=== PATIENT | female | born 2000 | race Caucasian/White ===

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

== ENCOUNTER 2021-06-01 14:31 | Emergency (ER) | payer OTHER, SELFPAY ==
[2021-06-01 14:33] VITALS: BP 157/73; PULSE 95; RESP 20; TEMP 37; O2SAT 98; BMI 33.2
[2021-06-01 15:16] LABS: Basophils % 0.2 % (0.1-2.0); Eosinophils % 0.3 % (0.1-12.0); Hematocrit 44.4 % (37.0-47.0); Hemoglobin 14.4 g/dL (12.2-16.2); Lymphocytes # 1.4 K/mm3 (0.7-4.5); Lymphocytes % 10.6 % (10-50); Mean Corpuscular HGB Conc 32.4 g/dL (31.8-35.4); Mean Corpuscular Hemoglobin 27.1 pg (27.0-31.2); Mean Corpuscular Volume 83.7 fl (81-99); Mean Platelet Volume 8.2 fl (7.4-10.4); Monocytes # 0.4 K/mm3 (0.1-1.0); Monocytes % 3.3 % (1.7-9.3); Neutrophils # 11.5 K/mm3 (1.8-7.8); Neutrophils % 85.6 % (37.0-80.0); Platelet Count 391 K/mm3 (142-424); Red Cell Distribution Width 15.2 % (11.5-17.5); White Blood Count 13.5 K/mm3 (4.8-10.8)
[2021-06-01 15:19] LABS: MANUAL DIFFERENTIAL MANUAL DIFFERENTIAL (MANUAL DIFF)
[2021-06-01 15:20] LABS: Alanine Aminotransferase 25 U/L (12-78); Albumin Level 4.7 g/dl (3.5-5.0); Albumin/Globulin Ratio 1.6 (1.1-1.8); Alkaline Phosphatase 68 U/L (38-126); Anion Gap 15.8 mEq/L (5-15); Aspartate Amino Transferase 23 U/L (14-36); Bilirubin,Total 0.6 mg/dl (0.2-1.3); Blood Urea Nitrogen 9 mg/dl (7-17); Calcium 9.7 mg/dl (8.4-10.2); Carbon Dioxide 23 mmol/L (22.0-30.0); Chloride 103 mmol/L (98-107); Creatinine Clearance Estimated 188 mL/min (50-200); Estimated Glomerular Filt Rate 106 ml/min (>60); GFR (African American) 128 ML/MIN (>60); Glucose 86 mg/dl (74-100); Potassium 3.8 mmoL/L (3.5-5.1); Sodium 138 mmol/L (136-145); Total Protein,Serum 7.7 g/dl (6.3-8.2)
[2021-06-01 16:09] LABS: Eosinophils % 1 % (0-3); Hypochromasia 1+; Lymphocytes % 14 % (10-50); Monocytes % 10 % (2-9); Neutrophils % 75 % (42-76); Platelet Estimate Normal; Total Cells Counted 100
--- NOTE | 2021-06-01 16:36 | HMH.EDGENADL ---
ED Disposition Clinical Impression: Intractable nausea and vomiting Disposition: Home, Self-Care Condition on Discharge: Good Instructions: DI for Diarrhea and Traveler's Diarrhea -- Adult, DI for Diarrhea and Traveler's Diarrhea -- Child, DI for Nausea -- Adult, DI for Nausea -- Child Prescriptions: Ondansetron [Zofran 4mg ODT] 4 mg PO BIDP PRN #10 tab PRN Reason: Nausea Transmission Status: Received by [facility] Referrals: Derik Ruano MD [Primary Care Provider] - - Critical Care Critical Care Time: No Attestation: On 06/01/21, the high probability of a clinically significant, sudden or life threatening deterioration of the following system(s) required my full and direct attention, intervention and personal management. The time I documented below is in addition to time spent performing reported procedures but includes the following listed in this critical care notation. Medical Decision Making - Medical Records Medical records reviewed: Yes: I reviewed the patient's medical records. - Jef Inquiry Pt receiving controlled substance: No Vital Signs: 06/01/21 14:33 06/01/21 17:04 06/01/21 17:09 Temperature 98.6 F 98.6 F Temperature Source Oral Pulse Rate 87 87 Pulse Rate [Left Radial] 95 H Respiratory Rate 20 20 Blood Pressure 116/69 116/69 Blood Pressure [Right Arm] 157/73 H Blood Pressure Mean 85 Blood Pressure Mean [Right Arm] 101 Blood Pressure Source [Right Arm] Automatic Cuff Blood Pressure Position [Right Arm] Sitting 02 Sat by Pulse Oximetry 98 98 Oxygen Delivery Method Room Air Room Air - Lab Data Lab Results 06/01/21 15:03: WBC 13.5 H, RBC 5.30, Hgb 14.4, Hct 44.4, MCV 83.7, MCH 27.1, MCHC 32.4, RDW 15.2, Plt Count 391, MPV 8.2, Neut % (Auto) 85.6 H, Lymph % (Auto) 10.6, [place] % (Auto) 3.3, Eos % (Auto) 0.3, Baso % (Auto) 0.2, Neut # (Auto) 11.5 H, Lymph # (Auto) 1.4, Yates # (Auto) 0.4, Eos # (Auto) 0.0, Baso # (Auto) 0.0, Total Counted 100, Neutrophils % (Manual) 75, Lymphocytes % (Manual) 14, Monocytes % (Manual) 10 H, Eosinophils % (Manual) 1, Platelet Estimate Normal, Hypochromasia 1+ 06/01/21 15:03: Sodium 138, Potassium 3.8, Chloride 103, Carbon Dioxide 23, Anion Gap 15.8 H, BUN 9, Creatinine 0.70, Estimated Creat Clear 188, Estimated GFR 106, Est GFR ( Amer) 128, Glucose 86, Calcium 9.7, Total Bilirubin 0.6, AST 23, ALT 25, Alkaline Phosphatase 68, Total Protein 7.7, Albumin 4.7, Globulin 3.0, Albumin/Globulin Ratio 1.6 Result diagrams: 06/01/21 15:03 06/01/21 15:03 Orders (Tests/Meds): ED MEDICATIONS Discontinued Medications Generic Name Dose Route Start Last Admin Trade Name Freq PRN Reason Stop Dose Admin Sodium Chloride 1,000 mls @ 999 mls/hr 06/01/21 15:00 06/01/21 15:09 Sod Chlor 0.9% 1000ml Bag IV 06/01/21 16:00 999 mls/hr .Q1H1M FREDDY Administration Promethazine HCl 25 mg 06/01/21 15:20 Promethazine Hcl 25mg/Ml 1ml Vial IV 07/01/21 15:19 Q6HP PRN Nausea And Vomiting Medical Decision Narrative: Patient is a 21-year-old female presents emergency department chief complaint of nausea. Patient has suffered from intractable nausea and vomiting throughout both of her pregnancies. Given patient history, suspect patient is suffering from hyperemesis, intractable nausea vomiting, dehydration. We will give her a liter of fluid, Phenergan and have her p.o. Patient is able to p.o. without vomiting here, and the Zofran to the pharmacy where she could pick it up, she will follow up with OB and return to emergency department if she has new or acute problems. General Adult HPI - General Chief complaint: Nausea/Vomiting/Diarrhea Stated complaint: nauseated and vomiting, 7 wks Time Seen by Provider: 06/01/21 14:45 Mode of Arrival: Ambulatory Limitations: No Limitations Description of Symptoms (Recalled from ER Triage Doc. by RN): c/o n/v since Saturday, states she is unable to keep liquids or
[2021-06-01 17:04] VITALS: BP 116/69; PULSE 87; O2SAT 98
[2021-06-01 17:09] VITALS: BP 116/69; PULSE 87; RESP 20; TEMP 37; O2SAT 98
== END 2021-06-01 17:10 | disposition home or self-care (01) ==
PROVIDERS: Emergency Provider Emergency Medicine; PCP Internal Medicine Adolescent Medicine
DX: O21.0 Mild hyperemesis gravidarum (principal); Z3A.01 Less than 8 weeks gestation of pregnancy
CPT/HCPCS: 80053; 85007; 85025; 96365; 96375; 99283

== ENCOUNTER 2021-08-12 12:02 | Emergency (ER) | payer BC, SELFPAY ==
[2021-08-12 15:45] VITALS: BP 0/0; PULSE 0; RESP 0; TEMP -17.7; TEMP 0
== END 2021-08-12 15:45 | disposition left against medical advice (07) ==
LOC: UTC 12:10
PROVIDERS: Emergency Provider Nurse Practitioner Family
DX: Z53.21 Procedure and treatment not carried out due to patient leaving prior to being seen by health care provider (principal)

== ENCOUNTER 2022-03-09 20:46 | Emergency (ER) | payer OTHER, SELFPAY ==
[2022-03-09 20:52] VITALS: BMI 31.6
--- NOTE | 2022-03-09 20:53 | XR_ITS ---
PROCEDURE INFORMATION: Exam: XR Chest Exam date and time: 03/09/2022 9:19 PM Age: 21 years old Clinical indication: Tachypnea; Additional info: Palpitations TECHNIQUE: Imaging protocol: Radiologic exam of the chest. Views: 2 views. COMPARISON: ABDPELW CT abdomen pelvis w con 01/01/2018 12:04 PM FINDINGS: Lungs: No acute pulmonary findings. No pulmonary consolidation. Lung volumes within normal limits. Pulmonary vessels do not appear congested. Pleural spaces: Unremarkable. No significant pleural effusion. No pneumothorax. Heart/Mediastinum: The cardiac silhouette is normal. Bones/joints: There is no evidence of acute fracture. IMPRESSION: No acute findings.
[2022-03-09 20:55] VITALS: BP 143/97; PULSE 106; RESP 20; TEMP 36.9; O2SAT 100; BMI 31.6
[2022-03-09 20:58] LABS: Microscopic, Urine URINE MICROSCOPIC (MICROSCOPIC)
[2022-03-09 21:01] LABS: Appearance,Urine CLEAR (Clear); Bilirubin,Urine Negative (Negative); Blood, Urine TRACE-I (Negative); Color,Urine YELLOW (Yellow); Glucose,Urine (UA) Negative (Negative); Ketones,Urine TRACE (Negative); Leukocyte Esterase,Urine Negative (Negative); Nitrate,Urine Negative (Negative); PH,Urine 6.5 (5.0-8.5); Protein,Urine TRACE (Negative); Urobilinogen,Urine 0.2 EU/dl (0.2)
--- NOTE | 2022-03-09 21:05 | ECG_ITS ---
APPROVED REPORT Exam: Resting ECG HR:98 bpm ECG Measurements Heart Rate 98 AXES UT 187 P 41 QRSd 90 QRS 50 QT 350 T 30 QTc 406 Conclusion SINUS RHYTHM NORMAL ECG UNCONFIRMED REPORT Electronically signed by : Derik Ruano MD 03/10/2022 08:12:36
[2022-03-09 21:10] LABS: RBC,Urine Occasional #/hpf (0-3); Squamous Epithelial Cell,Urine Occasional #/hpf (0-5); WBC,Urine Occasional #/hpf (0-3)
[2022-03-09 21:11] VITALS: BP 136/83; PULSE 111; RESP 17; O2SAT 100
[2022-03-09 21:12] LABS: Barbiturates Screen,Urine Negative ng/ml (<200)
[2022-03-09 21:13] LABS: Benzodiazepines Screen,Urine Negative ng/ml (<200)
[2022-03-09 21:14] LABS: Amphetamine/Metha Screen,Urine Negative ng/ml (<1000); Cannabinoid Screen,Urine Negative ng/ml (<50)
[2022-03-09 21:15] LABS: Cocaine Screen,Urine Negative ng/ml (<300); Methadone Screen,Urine Negative ng/ml (<300)
[2022-03-09 21:16] LABS: Opiate Screen,Urine Negative ng/ml (<300)
[2022-03-09 21:16] LABS: Basophils # 0.1 K/mm3 (0-0.2); Eosinophils # 0.3 K/mm3 (0.0-0.4); Eosinophils % 3.4 % (0.1-12.0); Hematocrit 39.7 % (37.0-47.0); Hemoglobin 12.3 g/dL (12.2-16.2); Lymphocytes # 2.8 K/mm3 (0.7-4.5); Lymphocytes % 36.5 % (10-50); Mean Corpuscular HGB Conc 30.9 g/dL (31.8-35.4); Mean Corpuscular Hemoglobin 24.6 pg (27.0-31.2); Mean Corpuscular Volume 79.7 fl (81-99); Mean Platelet Volume 8.3 fl (7.4-10.4); Monocytes # 0.5 K/mm3 (0.1-1.0); Neutrophils % 52.1 % (37.0-80.0); Platelet Count 341 K/mm3 (142-424); Red Blood Count 4.98 M/mm3 (4.20-5.40); Red Cell Distribution Width 18.4 % (11.5-17.5); White Blood Count 7.6 K/mm3 (4.8-10.8)
[2022-03-09 21:17] LABS: Phencyclidine Screen,Urine Negative ng/ml (<25)
[2022-03-09 21:18] LABS: Alanine Aminotransferase 29 U/L (12-78); Albumin Level 4.3 g/dl (3.5-5.0); Albumin/Globulin Ratio 1.7 (1.1-1.8); Alkaline Phosphatase 72 U/L (38-126); Anion Gap 10.5 mEq/L (5-15); Aspartate Amino Transferase 33 U/L (14-36); Blood Urea Nitrogen 13 mg/dl (7-17); Calcium 9.7 mg/dl (8.4-10.2); Carbon Dioxide 27 mmol/L (22.0-30.0); Chloride 106 mmol/L (98-107); Creatinine Clearance Estimated 139 mL/min (50-200); Estimated Glomerular Filt Rate 79 ml/min (>60); GFR (African American) 96 ML/MIN (>60); Globulin 2.5 g/dL (1.3-3.2); Glucose 110 mg/dl (74-100); Potassium 3.5 mmoL/L (3.5-5.1); Sodium 140 mmol/L (136-145); Total Protein,Serum 6.8 g/dl (6.3-8.2)
[2022-03-09 21:19] LABS: Bilirubin,Total 0.1 mg/dl (0.2-1.3)
[2022-03-09 21:21] LABS: HCG Qualitative, Serum Negative (Negative)
--- NOTE | 2022-03-09 21:21 | HMH.EDANX ---
ED Disposition Clinical Impression: Acute anxiety Disposition: Home, Self-Care Condition on Discharge: Good Instructions: Anxiety Disorders Additional Instructions: see pcp for follow up Referrals: Leena Louis APRN [Primary Care Provider] - - Critical Care Critical Care Time: No Attestation: On 03/09/22, the high probability of a clinically significant, sudden or life threatening deterioration of the following system(s) required my full and direct attention, intervention and personal management. The time I documented below is in addition to time spent performing reported procedures but includes the following listed in this critical care notation. Medical Decision Making - Medical Records Medical records reviewed: Yes: I reviewed the patient's medical records. - Jef Inquiry Pt receiving controlled substance: No Vital Signs: 03/09/22 20:55 03/09/22 21:11 03/09/22 22:00 Temperature 98.4 F Temperature Source Oral Pulse Rate 111 H 101 H Pulse Rate [Left Radial] 106 H Respiratory Rate 20 17 Blood Pressure 136/83 130/75 Blood Pressure [Right Arm] 143/97 H Blood Pressure Mean 100 91 Blood Pressure Mean [Right Arm] 112 02 Sat by Pulse Oximetry 100 100 98 - Lab Data Lab results reviewed: Yes: I reviewed the patient's lab results. Lab Results 03/09/22 20:54: Urine Color Yellow, Urine Appearance Clear, Urine pH 6.5, Ur Specific [place] 1.020, Urine Protein Trace, Urine Glucose (UA) Negative, Urine Ketones Trace, Urine Blood Trace-i, Urine Nitrate Negative, Urine Bilirubin Negative, Urine Urobilinogen 0.2, Ur Leukocyte Esterase Negative, Urine RBC Occasional, Urine WBC Occasional, Ur Squamous Epith Cells Occasional, Urine Bacteria None 03/09/22 20:54: Urine Opiates Screen Negative, Urine Methadone Screen Negative, Ur Barbituates Screen Negative, Ur Phencyclidine Scrn Negative, Ur Amphetamines Screen Negative, U Benzodiazepines Scrn Negative, Urine Cocaine Screen Negative, U Marijuana (THC) Screen Negative 03/09/22 21:00: WBC 7.6, RBC 4.98, Hgb 12.3, Hct 39.7, MCV 79.7 L, MCH 24.6 L, MCHC 30.9 L, RDW 18.4 H, Plt Count 341, MPV 8.3, Neut % (Auto) 52.1, Lymph % (Auto) 36.5, [place] % (Auto) 7.0, Eos % (Auto) 3.4, Baso % (Auto) 1.0, Neut # (Auto) 4.0, Lymph # (Auto) 2.8, [place] # (Auto) 0.5, Eos # (Auto) 0.3, Baso # (Auto) 0.1 03/09/22 21:00: Sodium 140, Potassium 3.5, Chloride 106, Carbon Dioxide 27, Anion Gap 10.5, BUN 13, Creatinine 0.90, Estimated Creat Clear 139, Estimated GFR 79, Est GFR ( Amer) 96, Glucose 110 H, Calcium 9.7, Total Bilirubin 0.1 L, AST 33, ALT 29, Alkaline Phosphatase 72, Troponin I < 0.01, Total Protein 6.8, Albumin 4.3, Globulin 2.5, Albumin/Globulin Ratio 1.7 03/09/22 21:00: Serum HCG, Qual Negative Result diagrams: 03/09/22 21:00 03/09/22 21:00 Orders (Tests/Meds): ED MEDICATIONS Generic Name Dose Route Start Last Admin Trade Name Freq PRN Reason Stop Dose Admin Sodium Chloride 10 ml 03/09/22 21:01 Sodium Chloride 0.9% 10ml Flush Syringe IV 04/08/22 21:00 NEEDED PRN Maintain IV Site Sodium Chloride 10 ml 03/09/22 21:06 Sodium Chloride 0.9% 10ml Vial IV 04/08/22 21:05 NEEDED PRN to Dilute Lorazepam inj Discontinued Medications Generic Name Dose Route Start Last Admin Trade Name Freq PRN Reason Stop Dose Admin Lorazepam 1 mg 03/09/22 21:06 03/09/22 21:07 Lorazepam 2mg/Ml Vial IV 03/09/22 21:07 1 mg ONCE ONE Administration ORDERS Category Date Time Status XR chest 2V Stat Exams 03/09/22 20:53 Taken Troponin I Q3H Lab 03/09/22 23:54 Ordered Troponin I Q3H Lab 03/10/22 02:54 Ordered - Radiology Data #1 Image(s): Chest Image Reviewed: Yes I reviewed the patient's radiology image Preliminary Findings: Normal/NAD - ECG Data Tracing #1 Normal Sinus Rhythm: Yes Ischemic changes: non-specific ST-T wave changes Medical Decision Narrative: stable exam and labs Anxiety HPI
[2022-03-09 21:32] LABS: Troponin I < 0.01 ng/ml (0.00-0.034)
[2022-03-09 22:00] VITALS: BP 130/75; PULSE 101; O2SAT 98
[2022-03-09 22:25] VITALS: BP 130/75; PULSE 95; RESP 17; TEMP 36.9; O2SAT 100
== END 2022-03-09 22:26 | disposition home or self-care (01) ==
PROVIDERS: Emergency Provider Emergency Medicine; PCP Nurse Practitioner Family
DX: R42 Dizziness and giddiness (principal); R00.2 Palpitations; R20.2 Paresthesia of skin; R23.2 Flushing; K59.39 Other megacolon; M41.9 Scoliosis, unspecified; F41.9 Anxiety disorder, unspecified; Z88.0 Allergy status to penicillin; Z82.49 Family history of ischemic heart disease and other diseases of the circulatory system; Z83.3 Family history of diabetes mellitus; Z80.9 Family history of malignant neoplasm, unspecified
CPT/HCPCS: 71046; 80053; 80305; 81001; 84484; 84703; 85025; 93005; 96374; 99285

== ENCOUNTER 2022-03-25 10:18 | Emergency (ER) | payer OTHER, SELFPAY ==
--- NOTE | 2022-03-25 10:26 | ECG_ITS ---
APPROVED REPORT Exam: Resting ECG HR:102 bpm ECG Measurements Heart Rate 102 AXES ME 152 P 50 QRSd 84 QRS 52 QT 359 T 42 QTc 418 Conclusion SINUS TACHYCARDIA LOW QRS VOLTAGE IN PRECORDIAL LEADS [QRS DEFLECTION < 1.0 mV IN CHEST LEADS] ABNORMAL RHYTHM ECG UNCONFIRMED REPORT Electronically signed by : Derik Ruano MD 03/26/2022 20:11:28
[2022-03-25 10:27] VITALS: BP 147/92; PULSE 112; RESP 15; TEMP 37.1; O2SAT 98; BMI 32.3
--- NOTE | 2022-03-25 10:35 | XR_ITS ---
PROCEDURE INFORMATION: Exam: XR Chest Exam date and time: 03/25/2022 11:04 AM Age: 21 years old Clinical indication: Pain; Chest pressure; Additional info: Anxiety/ chest heaviness TECHNIQUE: Imaging protocol: Radiologic exam of the chest. Views: 1 view. COMPARISON: CR XR CHEST 2V 03/09/2022 9:19 PM FINDINGS: Lungs: Unremarkable. No consolidation. Pleural spaces: Unremarkable. No pleural effusion. No pneumothorax. Heart/Mediastinum: Unremarkable. No cardiomegaly. Bones/joints: Unremarkable. IMPRESSION: No acute findings.
--- NOTE | 2022-03-25 10:53 | PC.NURSE ---
IV established and bloos sent to the lab. at the bedside for eval.
[2022-03-25 11:00] VITALS: BP 119/75; PULSE 98; RESP 16; O2SAT 98
--- NOTE | 2022-03-25 11:08 | HMH.EDGENADL ---
Discharge Plan Disposition Patient Disposition: Home, Self-Care Condition: Good Chief Complaint: Anxiety Prescriptions Prescriptions: No Action azithromycin 250 MG tablet 250 mg PO UD DOSE PK Qty: 6 0RF Rx Instructions: Take two (2) tablets today, then one (1) tablet days #2 thru #5 ondansetron 4 MG tablet,disintegrating 4 mg PO BIDP PRN (Reason: Nausea) Qty: 10 2RF Referrals Follow up/Referrals: Leena Louis APRN [Primary Care Provider] - See instructions Activity Restrictions/Add. Instructions Additional Instructions/Restrictions: Follow-up with primary care provider and AUTOGR[employer]. Continue current medications. Clinical Impressions Clinical Impression: Anxiety state Discharge ED Provider: Av Kemp General Adult HPI General Chief complaint: Anxiety Stated complaint: dizzy, tightness in face Time Seen by Provider: 03/25/22 10:45 Mode of Arrival: Ambulatory Source of Information: Patient Limitations: No Limitations Description of Symptoms (Recalled from ER Triage Doc. by RN): pt to ed c/o left sided nubness, anxiety and chest heaviness. pt states she was seen in the ED x2 weeks ago for an anxiety attack. pt states she thinks shes having panic attacks because her symptoms make her nervous. pt reports these symptoms come and go. History of Present Illness HPI narrative: Patient states that she was seen in this emergency department last weekend, states she had put her self into a panic attack. Since then she says she followed up with her AUTOGRAPHER (she is 2 months ) and has been started on duloxetine and hydroxyzine. She says that 20 minutes ago she woke up and developed a sensation of burning throughout her whole body. States this felt tight. Her whole body felt numb. She also has been having headaches off and on. Related Data Previous Rx's Medication Instructions Recorded azithromycin 250 mg tablet 250 mg PO UD DOSE PK #6 tabs 05/24/19 ondansetron 4 mg disintegrating 4 mg PO BIDP PRN Nausea #10 tabs 06/01/21 tablet Allergies Allergy/AdvReac Type Severity Reaction Status Date / Time Penicillins Allergy Verified 05/24/19 10:44 PFSH PFSH Social History Smoking Status: Never smoker alcohol intake: never substance use type: denies use current occupational status: employed Travel in the last 8 weeks: None housing: house ROS Obtained: Yes Systems reviewed as appropriate & no additional complaints except as documented Constitutional Constitutional: Denies fever(s) and Reports headache(s) Eyes Eyes: Denies change in vision ENT Ears, Nose, Mouth, and Throat: Reports headache(s) Cardiovascular Cardiovascular: Reports other (Chest feels heavy) Respiratory Respiratory: Denies shortness of breath Gastrointestinal Gastrointestingal: Denies abdominal pain, diarrhea or vomiting Musculoskeletal Musculoskeletal: Reports tingling Neurologic Neurologic: Denies focal weakness, Reports headache(s) and Reports tingling Physical Exam General General appearance: alert and anxious Comment: Heart rate 89. Pulse ox 100% on room air at the time my examination. Head Head exam: atraumatic and normocephalic Eye Eye exam: Present normal appearance, PERRL and EOMI ENT ENT exam: Present normal oropharynx and mucous membranes moist Neck Neck exam: Present normal inspection and full ROM; Absent meningismus Chest Chest inspection: Present normal inspection and symmetric chest wall rise Respiratory Respiratory exam: Present normal lung sounds bilaterally; Absent respiratory distress Cardiovascular Cardiovascular exam: Present regular rate, normal rhythm and normal heart sounds Abdominal Exam Abdominal exam: Present soft; Absent distention, tenderness, guarding or rebound Extremities Exam Extremities exam: Present normal inspection; Absent edema or calf tenderness Neurological Exam Neurological exam: Present alert and oriented X3 Psychiatric Psychiatric exam: Pres
[2022-03-25 11:11] LABS: Alanine Aminotransferase 23 U/L (12-78); Albumin Level 3.9 g/dl (3.5-5.0); Albumin/Globulin Ratio 1.5 (1.1-1.8); Alkaline Phosphatase 69 U/L (38-126); Anion Gap 10.7 mEq/L (5-15); Aspartate Amino Transferase 30 U/L (14-36); Bilirubin,Total 0.2 mg/dl (0.2-1.3); Blood Urea Nitrogen 10 mg/dl (7-17); Carbon Dioxide 25 mmol/L (22.0-30.0); Chloride 106 mmol/L (98-107); Creatinine Clearance Estimated 159 mL/min (50-200); Estimated Glomerular Filt Rate 91 ml/min (>60); GFR (African American) 110 ML/MIN (>60); Globulin 2.6 g/dL (1.3-3.2); Glucose 101 mg/dl (74-100); Potassium 3.7 mmoL/L (3.5-5.1); Sodium 138 mmol/L (136-145); Total Protein,Serum 6.5 g/dl (6.3-8.2)
[2022-03-25 11:20] LABS: Basophils % 0.6 % (0.1-2.0); Eosinophils # 0.1 K/mm3 (0.0-0.4); Eosinophils % 2.3 % (0.1-12.0); Hematocrit 37.6 % (37.0-47.0); Hemoglobin 11.8 g/dL (12.2-16.2); Lymphocytes # 1.5 K/mm3 (0.7-4.5); Lymphocytes % 23.4 % (10-50); Mean Corpuscular HGB Conc 31.5 g/dL (31.8-35.4); Mean Corpuscular Hemoglobin 25.2 pg (27.0-31.2); Mean Corpuscular Volume 80.1 fl (81-99); Mean Platelet Volume 8.2 fl (7.4-10.4); Monocytes # 0.4 K/mm3 (0.1-1.0); Monocytes % 6.2 % (1.7-9.3); Neutrophils # 4.2 K/mm3 (1.8-7.8); Neutrophils % 67.5 % (37.0-80.0); Platelet Count 312 K/mm3 (142-424); Red Blood Count 4.69 M/mm3 (4.20-5.40); Red Cell Distribution Width 18.1 % (11.5-17.5); White Blood Count 6.3 K/mm3 (4.8-10.8)
--- NOTE | 2022-03-25 11:28 | PC.NURSE ---
up to br
[2022-03-25 11:33] VITALS: BP 135/72; PULSE 76; RESP 18; O2SAT 100
[2022-03-25 11:50] LABS: Troponin I < 0.01 ng/ml (0.00-0.034)
[2022-03-25 12:00] VITALS: BP 111/77; PULSE 81; RESP 18; O2SAT 98
--- NOTE | 2022-03-25 12:04 | PC.NURSE ---
PT SITTING IN BED , PLAYING ON HER PHONE IN NO OBVIOUS DISTRESS , BUT PT STATES FEELS NO BETTER
[2022-03-25 12:30] VITALS: BP 118/67; PULSE 78; RESP 20; O2SAT 98
[2022-03-25 13:00] VITALS: BP 128/87; PULSE 84; RESP 17; TEMP 36.9; O2SAT 97
== END 2022-03-25 13:04 | disposition home or self-care (01) ==
PROVIDERS: Emergency Provider Emergency Medicine; PCP Nurse Practitioner Family
DX: R42 Dizziness and giddiness (principal); R07.89 Other chest pain; F41.9 Anxiety disorder, unspecified; R20.2 Paresthesia of skin; R00.0 Tachycardia, unspecified; R11.0 Nausea; R51.9 Headache, unspecified; Z79.899 Other long term (current) drug therapy; Z88.0 Allergy status to penicillin
CPT/HCPCS: 71045; 80053; 84484; 85025; 93005; 99213; G0463

== ENCOUNTER 2022-06-03 14:23 | Emergency (ER) | payer OTHER, SELFPAY ==
[2022-06-03 14:24] VITALS: BP 155/86; PULSE 88; RESP 18; TEMP 37; O2SAT 99; BMI 31.9
[2022-06-03 14:51] LABS: Microscopic, Urine URINE MICROSCOPIC (MICROSCOPIC)
[2022-06-03 15:00] VITALS: BP 144/87; PULSE 91; O2SAT 98
--- NOTE | 2022-06-03 15:04 | PC.NURSE ---
lab called for collection of labs.
[2022-06-03 15:13] LABS: Appearance,Urine CLEAR (Clear); Bilirubin,Urine Negative (Negative); Blood, Urine 1+ (Negative); Color,Urine YELLOW (Yellow); Glucose,Urine (UA) Negative (Negative); Ketones,Urine Negative (Negative); Leukocyte Esterase,Urine Negative (Negative); Nitrate,Urine Negative (Negative); PH,Urine 6.5 (5.0-8.5); Protein,Urine Negative (Negative); Urobilinogen,Urine 0.2 EU/dl (0.2)
--- NOTE | 2022-06-03 15:17 | HMH.EDGENADL ---
Discharge Plan Disposition Patient Disposition: Home, Self-Care Prescriptions Prescriptions: New hydroxyzine HCl 25 mg tablet 25 mg PO Q8H PRN (Reason: itching) Qty: 30 0RF No Action buspirone 10 mg tablet 10 mg PO BID Qty: 60 1RF Referrals Follow up/Referrals: Makenna Arias MD [Staff Physician] - See instructions Leena Louis APRN [Primary Care Provider] - See instructions Clinical Impressions Clinical Impression: Anxiety Discharge ED Provider: William Araujo General Adult HPI General Chief complaint: Anxiety Stated complaint: doesn't feel right, head in cloud,twitching Time Seen by Provider: 06/03/22 14:30 Mode of Arrival: Ambulatory Source of Information: Patient Limitations: No Limitations Description of Symptoms (Recalled from ER Triage Doc. by RN): c/o head feeling like its in a cloud, ears need poppin, hands, legs and arms jerking, twitch in her face, when she bends over her face gets hot, she feels like her neck and chin is drawing up. History of Present Illness HPI narrative: Patient is a 22-year-old female who presents with multiple complaints. She says that she has been having random numbness in her left shoulder blade. She says that the symptoms been going on for months. She has been extensively worked up by her primary care physician as well as the psychology team. She says that she also times will get random jerking in her arms and legs. She says that her legs also feel heavy. She says that she will feel hot when she bends over up into her chin and neck and feels like her jaws tightening up. She says that she has been diagnosed with anxiety in the past but says that her symptoms are almost all the time. Denies any chest or abdominal pain. Denies any shortness of breath. Related Data Previous Rx's Medication Instructions Recorded buspirone 10 mg tablet 10 mg PO BID #60 tabs 05/21/22 hydroxyzine HCl 25 mg tablet 25 mg PO Q8H PRN itching #30 tabs 06/03/22 Allergies Allergy/AdvReac Type Severity Reaction Status Date / Time Penicillins Allergy Verified 05/21/22 09:31 [facility] Medical History (Updated 06/03/22 @ 16:33 by William Araujo MD) Generalized anxiety disorder Family History (Updated 05/21/22 @ 11:13 by Isabel Morales APRN) Grandmother Thyroid disorder Coronary artery disease Hypertension Sister Thyroid disorder Social History (Updated 05/21/22 @ 09:20 by Isabel Morales APRN) Smoking Status: Never smoker second hand exposure: No alcohol intake: never substance use type: denies use current occupational status: employed Travel in the last 8 weeks: None adopted: No caregiver/support person: Yes (for her 2 kids) foster care: No household members: family and other details: lives with her 2 daughters; grandmother; they are getting ready to move out housing: house lives independently: No marital status: life partner number of children: 2 number of grandchildren: 0 education level: high school service: No usp: No current occupation: works at a daycare current occupational exposures/hazards: No Hx Recent Travel: No sexually active: Yes caffeine: No physical activity: none jose/samaritan: Mosque special jose needs: No working smoke detector in home: Yes fire extinguisher in home: No carbon monox detector in home: Yes firearms in home: No do you feel safe at home: Yes victim of physical abuse: No victim of emotional abuse: No victim of sexual abuse: No would you like helpful sources: No ROS Obtained: Yes All systems reviewed & no additional complaints except as documented A 14 point review system was obtained otherwise negative except per HPI Physical Exam General General appearance: alert and in no apparent distress Head Head exam: atraumatic, normocephalic and normal inspection Eye Eye exam: Present normal appearance, PERRL and
[2022-06-03 15:30] VITALS: BP 108/61; PULSE 76; RESP 20; O2SAT 100
--- NOTE | 2022-06-03 15:37 | PC.NURSE ---
COvid swab obtained and sent with sleep lab technician to lab. Provided pt with blanket, no other needs at this time.
[2022-06-03 15:42] LABS: Basophils # 0.1 K/mm3 (0-0.2); Basophils % 0.7 % (0.1-2.0); Eosinophils # 0.1 K/mm3 (0.0-0.4); Eosinophils % 1.1 % (0.1-12.0); Hematocrit 38.5 % (37.0-47.0); Hemoglobin 12.5 g/dL (12.2-16.2); Lymphocytes # 1.2 K/mm3 (0.7-4.5); Lymphocytes % 16.3 % (10-50); Mean Corpuscular HGB Conc 32.5 g/dL (31.8-35.4); Mean Corpuscular Hemoglobin 25.5 pg (27.0-31.2); Mean Corpuscular Volume 78.4 fl (81-99); Mean Platelet Volume 7.9 fl (7.4-10.4); Monocytes # 0.3 K/mm3 (0.1-1.0); Monocytes % 3.7 % (1.7-9.3); Neutrophils # 5.9 K/mm3 (1.8-7.8); Neutrophils % 78.1 % (37.0-80.0); Platelet Count 354 K/mm3 (142-424); Red Blood Count 4.91 M/mm3 (4.20-5.40); Red Cell Distribution Width 15.7 % (11.5-17.5); White Blood Count 7.5 K/mm3 (4.8-10.8)
[2022-06-03 15:45] LABS: Bacteria,Urine Trace /lpf; RBC,Urine Occasional #/hpf (0-3)
[2022-06-03 15:47] LABS: Alanine Aminotransferase 20 U/L (12-78); Albumin Level 4.6 g/dl (3.5-5.0); Albumin/Globulin Ratio 1.8 (1.1-1.8); Alkaline Phosphatase 76 U/L (38-126); Aspartate Amino Transferase 27 U/L (14-36); Bilirubin,Total 0.6 mg/dl (0.2-1.3); Blood Urea Nitrogen 12 mg/dl (7-17); Calcium 9.8 mg/dl (8.4-10.2); Carbon Dioxide 26 mmol/L (22.0-30.0); Chloride 103 mmol/L (98-107); Creatinine Clearance Estimated 179 mL/min (50-200); Estimated Glomerular Filt Rate 105 ml/min (>60); GFR (African American) 127 ML/MIN (>60); Globulin 2.6 g/dL (1.3-3.2); Glucose 94 mg/dl (74-100); Sodium 141 mmol/L (136-145); Total Protein,Serum 7.2 g/dl (6.3-8.2)
[2022-06-03 16:00] VITALS: BP 118/65; PULSE 92; RESP 20; O2SAT 100
[2022-06-03 16:06] LABS: Free T4 (Free Thyroxine) 0.81 ng/dl (0.78-2.19)
[2022-06-03 16:06] LABS: Coronavirus 19, PCR Not Detected (NotDetected); Influenza A, PCR Not Detected (NotDetected); Influenza B, PCR Not Detected (NotDetected)
[2022-06-03 16:20] LABS: Thyroid Stimulating Hormone 1.51 uIU/mL (0.465-4.68)
[2022-06-03 16:30] VITALS: BP 117/66; PULSE 73; RESP 20; O2SAT 99
[2022-06-03 16:50] VITALS: BP 117/66; PULSE 87; RESP 19; TEMP 37; O2SAT 98
== END 2022-06-03 16:52 | disposition home or self-care (01) ==
PROVIDERS: Emergency Provider Student in an Organized Health Care Education/Training Program; PCP Nurse Practitioner Family
DX: R20.2 Paresthesia of skin (principal); R25.3 Fasciculation; F41.1 Generalized anxiety disorder; Z20.822 Contact with and (suspected) exposure to COVID-19; Z88.0 Allergy status to penicillin; Z82.49 Family history of ischemic heart disease and other diseases of the circulatory system; Z83.49 Family history of other endocrine, nutritional and metabolic diseases
CPT/HCPCS: 36415; 80053; 81001; 84439; 84443; 85025; 99283; C9803; U0003; U0005

== ENCOUNTER 2022-07-02 17:07 | Emergency (ER) | payer OTHER, SELFPAY ==
[2022-07-02 17:08] VITALS: BP 151/87; PULSE 90; RESP 16; TEMP 36.8; O2SAT 99; BMI 33.3
--- NOTE | 2022-07-02 19:26 | CT_ITS ---
PROCEDURE INFORMATION: Exam: CT Head Without Contrast Exam date and time: 07/02/2022 7:45 PM Age: 22 years old Clinical indication: Pain; Headache; Migraine; Aura effect not specified; Does not respond to medication; With migrainosus (>72 hrs & severe); Additional info: Head pain- for over a week TECHNIQUE: Imaging protocol: Computed tomography of the head without contrast. Radiation optimization: All CT scans at this facility use at least one of these dose optimization techniques: automated exposure control; mA and/or kV adjustment per patient size (includes targeted exams where dose is matched to clinical indication); or iterative reconstruction. COMPARISON: [facility] CT HEAD W/O CONTRAST 10/10/2016 4:04 PM FINDINGS: Brain: Normal. No hemorrhage. Unremarkable white matter. No mass effect. Cerebral ventricles: No ventriculomegaly. Paranasal sinuses: Visualized sinuses are unremarkable. No fluid levels. Mastoid air cells: Visualized mastoid air cells are well aerated. Bones/joints: Unremarkable. No acute fracture. Soft tissues: Unremarkable. IMPRESSION: No acute intracranial abnormality.
[2022-07-02 19:32] LABS: Microscopic, Urine URINE MICROSCOPIC (MICROSCOPIC)
[2022-07-02 19:38] LABS: Appearance,Urine CLEAR (Clear); Bilirubin,Urine Negative (Negative); Blood, Urine 3+ (Negative); Color,Urine YELLOW (Yellow); Glucose,Urine (UA) Negative (Negative); Ketones,Urine Negative (Negative); Leukocyte Esterase,Urine Negative (Negative); Nitrate,Urine Negative (Negative); PH,Urine 6.5 (5.0-8.5); Protein,Urine Negative (Negative); Specific Gravity, Urine 1.025 (1.005-1.030); Urine Pregnancy, HCG Qual. Negative (Negative)
[2022-07-02 20:03] LABS: Basophils # 0.1 K/mm3 (0-0.2); Basophils % 0.8 % (0.1-2.0); Eosinophils # 0.1 K/mm3 (0.0-0.4); Eosinophils % 1.2 % (0.1-12.0); Hematocrit 34.5 % (37.0-47.0); Hemoglobin 11.3 g/dL (12.2-16.2); Lymphocytes # 2.2 K/mm3 (0.7-4.5); Lymphocytes % 25.7 % (10-50); Mean Corpuscular HGB Conc 32.6 g/dL (31.8-35.4); Mean Corpuscular Hemoglobin 26.1 pg (27.0-31.2); Monocytes # 0.4 K/mm3 (0.1-1.0); Monocytes % 4.7 % (1.7-9.3); Neutrophils # 5.7 K/mm3 (1.8-7.8); Neutrophils % 67.5 % (37.0-80.0); Platelet Count 370 K/mm3 (142-424); Red Blood Count 4.32 M/mm3 (4.20-5.40); Red Cell Distribution Width 15.9 % (11.5-17.5); White Blood Count 8.4 K/mm3 (4.8-10.8)
[2022-07-02 20:11] LABS: Alanine Aminotransferase 23 U/L (12-78); Albumin Level 4.2 g/dl (3.5-5.0); Albumin/Globulin Ratio 1.6 (1.1-1.8); Alkaline Phosphatase 77 U/L (38-126); Anion Gap -0.3 mEq/L (5-15); Aspartate Amino Transferase 27 U/L (14-36); Blood Urea Nitrogen 18 mg/dl (7-17); Carbon Dioxide 26 mmol/L (22.0-30.0); Chloride 106 mmol/L (98-107); Creatinine Clearance Estimated 140 mL/min (50-200); Estimated Glomerular Filt Rate 78 ml/min (>60); GFR (African American) 95 ML/MIN (>60); Globulin 2.6 g/dL (1.3-3.2); Glucose 92 mg/dl (74-100); Potassium 3.7 mmoL/L (3.5-5.1); Sodium 128 mmol/L (136-145); Total Protein,Serum 6.8 g/dl (6.3-8.2)
[2022-07-02 20:14] LABS: Bilirubin,Total < 0.1 mg/dl (0.2-1.3)
[2022-07-02 20:18] LABS: HCG Qualitative, Serum Negative (Negative)
[2022-07-02 20:30] LABS: Coronavirus 19, PCR Not Detected (NotDetected); Influenza A, PCR Not Detected (NotDetected); Influenza B, PCR Not Detected (NotDetected)
--- NOTE | 2022-07-02 20:36 | HMH.EDGENADL ---
Discharge Plan Disposition Patient Disposition: Home, Self-Care Condition: Good Prescriptions Prescriptions: No Action buspirone 10 mg tablet 10 mg PO BID Qty: 60 1RF citalopram [Celexa] 10 mg tablet 10 mg PO QHS Qty: 30 1RF hydroxyzine HCl 25 mg tablet 25 mg PO Q8H PRN (Reason: itching) Qty: 30 0RF Referrals Follow up/Referrals: Leena Louis APRN [Primary Care Provider] - See instructions Activity Restrictions/Add. Instructions Additional Instructions/Restrictions: Fu w/ your primary care physician in 1-2 days for further management regarding your chronic symptoms. Please take tylenol and ibuprofen for comfort. you will be notified if your covid and flu results are positive. Clinical Impressions Clinical Impression: Chronic pain Instructions Patient Instructions: DI for Chronic Pain -- Adult Print Language Print Language: Scottish Discharge ED Provider: Janell Barone Adult HPI General Chief complaint: PAIN Stated complaint: h/a, neck pain Time Seen by Provider: 07/02/22 17:08 Mode of Arrival: Ambulatory Source of Information: Patient Limitations: No Limitations Description of Symptoms (Recalled from ER Triage Doc. by RN): pt c/o Bal and neck and back pain that comes and goes x week and half. pt denies any trauma History of Present Illness HPI narrative: Miss Morales is a 22yo female w/ PMh for anxiety disorder, chronic pain, presenting to the ED for headache, neck and diffuse back pain for multiple months, progressively worsened over the last week prompting today's visit. Patient denies any trauma. Reports mild rhinorrhea. No fevers, cough or other infectious symptoms. No sick contacts. No abdominal pain, bowel changes or urinary sx. Patient eating and drinking appropriately. No N/V/D. MD complaint: headache, diffuse aches. Related Data Previous Rx's Medication Instructions Recorded buspirone 10 mg tablet 10 mg PO BID #60 tabs 05/21/22 hydroxyzine HCl 25 mg tablet 25 mg PO Q8H PRN itching #30 tabs 06/03/22 citalopram 10 mg tablet (Celexa) 10 mg PO QHS #30 tabs 06/18/22 Allergies Allergy/AdvReac Type Severity Reaction Status Date / Time Penicillins Allergy Verified 06/18/22 10:45 PFSH PFSH Disclaimer: The information contained in this section may have been updated after the patient was seen, as this information can be updated by other users. Medical History (Updated 07/02/22 @ 20:45 by Janell Barone MD) Generalized anxiety disorder Family History Grandmother Thyroid disorder Coronary artery disease Hypertension Sister Thyroid disorder Social History Smoking Status: Never smoker second hand exposure: No alcohol intake: never substance use type: denies use current occupational status: employed Travel in the last 8 weeks: None adopted: No caregiver/support person: Yes (for her 2 kids) foster care: No household members: family and other details: lives with her 2 daughters; grandmother; they are getting ready to move out housing: house lives independently: No marital status: life partner number of children: 2 number of grandchildren: 0 education level: high school service: No prison: No current occupation: works at a daycare current occupational exposures/hazards: No Hx Recent Travel: No sexually active: Yes caffeine: No physical activity: none jose/congregational: Nondenominational special jose needs: No working smoke detector in home: Yes fire extinguisher in home: No carbon monox detector in home: Yes firearms in home: No do you feel safe at home: Yes victim of physical abuse: No victim of emotional abuse: No victim of sexual abuse: No would you like helpful sources: No ROS Obtained: Yes All systems reviewed & no additional complaints except as documented Physical Ex
[2022-07-02 20:48] VITALS: BP 149/76; PULSE 87; RESP 16; TEMP 36.8; O2SAT 99
[2022-07-02 21:00] LABS: Squamous Epithelial Cell,Urine Occasional #/hpf (0-5); WBC,Urine Occasional #/hpf (0-3)
== END 2022-07-02 20:50 | disposition home or self-care (01) ==
PROVIDERS: Emergency Provider Student in an Organized Health Care Education/Training Program; PCP Nurse Practitioner Family
DX: G89.29 Other chronic pain (principal); R51.9 Headache, unspecified; M45.2 Ankylosing spondylitis of cervical region; Z79.899 Other long term (current) drug therapy; F41.1 Generalized anxiety disorder
CPT/HCPCS: 70450; 80053; 81001; 81025; 84703; 85025; 99284; C9803; U0003; U0005

== ENCOUNTER → 2022-08-07 16:22 | Outpatient (CLI) | payer OTHER, SELFPAY ==
--- NOTE | 2022-08-07 16:23 | MR_ITS ---
PROCEDURE INFORMATION: Exam: MR Head Without Contrast Exam date and time: 08/07/2022 4:22 PM Age: 22 years old Clinical indication: Visual disturbance; Headache. TECHNIQUE: Imaging protocol: Magnetic resonance imaging of the head without contrast. COMPARISON: CT HEAD/BRAIN WO CON 07/02/2022 7:45 PM FINDINGS: Brain: Normal. No acute infarct. No hemorrhage. No significant white matter disease. No edema. Cerebral ventricles: Normal. No ventriculomegaly. Bones/joints: Unremarkable. Paranasal sinuses: Normal as visualized. No acute sinusitis. Mastoid air cells: Normal as visualized. No mastoid effusion. Orbital cavities: Unremarkable. Soft tissues: Unremarkable. IMPRESSION: No acute findings.
== END ==
PROVIDERS: PCP Nurse Practitioner Family; Visit Provider Nurse Practitioner Family
DX: H53.9 Unspecified visual disturbance; M54.2 Cervicalgia; R20.2 Paresthesia of skin; R53.1 Weakness; F41.9 Anxiety disorder, unspecified; R40.0 Somnolence; E66.9 Obesity, unspecified; Z68.33 Body mass index [BMI] 33.0-33.9, adult; R51.9 Headache, unspecified
CPT/HCPCS: 70551

== ENCOUNTER 2022-08-08 10:48 | Emergency (ER) | payer OTHER, SELFPAY ==
[2022-08-08 11:00] VITALS: BP 135/67; PULSE 96; RESP 19; TEMP 36.7; O2SAT 97; BMI 33.6
[2022-08-08 11:30] LABS: UTC Influenza A Antigen Negative (Negative); UTC Influenza B Antigen Negative (Negative); UTC Strep Screen (Rapid) Negative (Negative)
--- NOTE | 2022-08-08 11:34 | EXP.UTC ---
Discharge Plan Disposition Patient Disposition: Home, Self-Care Condition: Good Prescriptions Prescriptions: No Action citalopram [Celexa] 10 mg tablet 10 mg PO QHS Referrals Follow up/Referrals: Leena Louis APRN [Primary Care Provider] - See instructions Activity Restrictions/Add. Instructions Additional Instructions/Restrictions: *Monitor Temp, Over the counter Motrin or Tylenol as directed/as needed Tylenol every 4 hours and Motrin every 6 hours (as long as your family doctor has told you that you can take it) for fever or pain. and straight to ER if unable to lower temp less than 101.0 after medication given *Warm salt water gargles may help to soothe the throat *Throat Lozenges? *Warm fluids like tea with honey may help to soothe the throat? *Sleep elevated *Humidifier/Vaporizer Your throat swab was sent for culture. Those results are typically sent to your primary care. Be sure to follow up in 2-3 days with your family doctor/primary care physician if no improvement so they can review those result and treat if necessary. If you don?t have a primary care doctor, I recommend you get one but in the mean time, you will have to return to a walk in clinic Follow up IMMEDIATELY for new or worsening symptoms or no Noticeable improvement over the next 48-72 hours. 911 for difficulty breathing or swallowing Clinical Impressions Clinical Impression: Sinusitis Stand Alone Forms Stand Alone Forms: Work/School Release Instructions Patient Instructions: DI for Sinusitis, Sinusitis Discharge ED Provider: Paulette Godoy [facility] General Stated complaint: Cough, sore throat, Headache Mode of Arrival: Ambulatory Source of Information: Patient Limitations: No Limitations Time Seen by Provider: 08/08/22 11:34 Description of Symptoms (Recalled from Triage Doc. by RN): sore throat, MOSS, and cough HEENT Symptoms (Recalled from RN notes): Yes Resp Symptoms (Recalled from RN notes): No Skin Symptoms (Recalled from RN notes): No MS Symptoms (Recalled from RN notes): No Functional Status (Recalled from RN notes): n/a History of Present Illness Provider Complaint: Patient states that she has been having sore throat, headache and sinus congestion States that for the last few days it has continued to get worse so she came in to get checked Related Data Home Medications Medication Instructions Recorded Confirmed citalopram 10 mg tablet (Celexa) 10 mg PO QHS Anxiety 08/08/22 08/08/22 Allergies Allergy/AdvReac Type Severity Reaction Status Date / Time Penicillins Allergy Verified 08/08/22 11:22 Worker's Comp Is this a Worker's Comp case?: No [facility] Disclaimer: The information contained in this section may have been updated after the patient was seen, as this information can be updated by other users. Medical History (Updated 08/08/22 @ 11:49 by Paulette Godoy APRN) Generalized anxiety disorder Family History Grandmother Thyroid disorder Coronary artery disease Hypertension Sister Thyroid disorder Social History Smoking Status: Never smoker second hand exposure: No alcohol intake: never substance use type: denies use current occupational status: employed Travel in the last 8 weeks: None adopted: No caregiver/support person: Yes (for her 2 kids) foster care: No household members: family and other details: lives with her 2 daughters; grandmother; they are getting ready to move out housing: house lives independently: No marital status: life partner number of children: 2 number of grandchildren: 0 education level: high school service: No usp: No current occupation: works at a daycare current occupational exposures/hazards: No Hx Recent Travel: No sexually active: Yes caffeine: No physical activity:
[2022-08-08 11:50] VITALS: BP 135/67; PULSE 96; RESP 19; TEMP 36.7; O2SAT 97
== END 2022-08-08 11:50 | disposition home or self-care (01) ==
PROVIDERS: Emergency Provider Nurse Practitioner; PCP Nurse Practitioner Family
DX: J32.9 Chronic sinusitis, unspecified (principal)
CPT/HCPCS: 87804; 87880; 99212; 99213; G0463

== ENCOUNTER → 2022-08-13 11:30 | Outpatient (CLI) | payer OTHER, SELFPAY ==
--- NOTE | 2022-08-13 11:43 | XR_ITS ---
FINAL REPORT CLINICAL HISTORY: neck discomfort FINDINGS: SPINE CERVICAL COMPLETE/FLEXION & EXT AP and lateral views of the cervical spine were obtained including flexion and extension views. The vertebrae are normal height. Disc spaces are preserved. Alignment is normal. There is no abnormal movement with flexion or extension. IMPRESSION: No acute process. Reviewed, Interpreted and Dictated by Radha Ortega MD Transcribed by Axel Schreiber Authenticated and [facility]
[2022-08-13 14:43] LABS: Vitamin B12 430 pg/mL (239-931)
== END ==
PROVIDERS: PCP Nurse Practitioner Family; Visit Provider Nurse Practitioner Family
DX: M54.2 Cervicalgia (principal); R20.2 Paresthesia of skin; R53.1 Weakness; F41.9 Anxiety disorder, unspecified; H53.9 Unspecified visual disturbance; R40.0 Somnolence; E66.9 Obesity, unspecified; Z68.33 Body mass index [BMI] 33.0-33.9, adult; R51.9 Headache, unspecified
CPT/HCPCS: 36415; 72052; 82607; 82746

== ENCOUNTER → 2022-08-21 14:26 | Outpatient (CLI) | payer OTHER, SELFPAY ==
--- NOTE | 2022-08-21 14:32 | MR_ITS ---
FINAL REPORT TECHNIQUE: Multiplanar imaging of the cervical spine with and without contrast. CLINICAL HISTORY: Neck pain, medial scapular winging left shoulder tingling and pain in neck x 2 months FINDINGS: Limited images of the posterior fossa are unremarkable. Alignment is normal. Cervical spinal cord shows normal signal and contour. There is no abnormal contrast enhancement. C2-3: Unremarkable C3-4: Unremarkable C4-5: Unremarkable C5-6: Unremarkable C6-7: Unremarkable C7-T1: Unremarkable Reviewed, Interpreted and Dictated by Laura Gómez MD Transcribed by Amanda Edwards Authenticated and . [facility]
== END ==
PROVIDERS: PCP Nurse Practitioner Family; Visit Provider Nurse Practitioner Family
DX: M54.2 Cervicalgia (principal); M95.8 Other specified acquired deformities of musculoskeletal system; R20.2 Paresthesia of skin; R53.1 Weakness
CPT/HCPCS: 72156; 76376; A9576

== ENCOUNTER 2022-09-17 13:00 | Outpatient (RCR) | payer OTHER, SELFPAY ==
--- NOTE | 2022-09-11 18:08 | HMH.PTOPEV ---
PT Outpatient Evaluation Rehab PT Outpatient Evaluation Start: 09/11/22 16:46 Freq: Status: Active Protocol: Document 09/11/22 16:46 CHELSIEJOYCE (Rec: 09/11/22 18:08 ANA LUISA [id number]) E-signed By Justine Castillo, PT Outpatient Therapy Subjective History Subjective History Pt is a 22 y/o female who reports insidious onset of headaches, left shoulder blade tingling, neck fatigue and dizziness ~6 months ago after having her second child. Pt denies complications with child . Pt reports headaches have been steadily improving and only has 1-2/ week now described as pressure along her forehead and sinuses bilaterally. Pt reports intermittent tingling of the the lateral left shoulder blade that has recently spread out to the other shoulder as well across her bra line. Pt denies paresthesia of the LUE/hand or noted washhouse hand strength weakness. Pt reports she did a push-up plus test at one of her dr appts with noted winging of the left shoulder blade. Pt denies trauma or known injury to the left shoulder and reports she is right-handed. Pt also reports intermittent neck fatigue like her neck is stretched out randomly without known pattern. Pt does report that symptoms seem to be worse with cervical flexion . Pt also reports random dizziness in various positions . Pt also reports when she lays down, either on her back or side, it feels like her eyes are shaking.Pt reports she recently had her vision checked and had to get new glasses. Pt denies hearing or blood pressure issues. Pt also states her face does get
== END 2022-09-17 13:05 | disposition home or self-care (01) ==
LOC: PT 13:00
PROVIDERS: PCP Nurse Practitioner Family; Visit Provider Nurse Practitioner Family
DX: M54.2 Cervicalgia (principal); M95.8 Other specified acquired deformities of musculoskeletal system; R53.1 Weakness; G44.86 Cervicogenic headache; R42 Dizziness and giddiness; R20.2 Paresthesia of skin
CPT/HCPCS: 97110; 97112; 97140; 97163; 97530

== ENCOUNTER → 2022-09-25 16:44 | Outpatient (CLI) | payer OTHER, SELFPAY | PROVIDERS: PCP Nurse Practitioner Family; Visit Provider Nurse Practitioner Family | DX: G47.30 Sleep apnea, unspecified (principal); R40.0 Somnolence; R06.83 Snoring; F41.9 Anxiety disorder, unspecified; E66.9 Obesity, unspecified; Z68.33 Body mass index [BMI] 33.0-33.9, adult | CPT/HCPCS: 95806 ==

== ENCOUNTER 2022-11-17 13:46 | Emergency (ER) | payer OTHER, SELFPAY ==
[2022-11-17 13:47] VITALS: BP 130/85; PULSE 101; RESP 17; TEMP 36.8; O2SAT 100; BMI 32.3
--- NOTE | 2022-11-17 13:57 | HMH.EDGENADL ---
Discharge Plan Disposition Patient Disposition: Home, Self-Care Chief Complaint: Extremity Injury, Lower Prescriptions Prescriptions: No Action tizanidine 2 mg tablet 2 - 4 mg PO HS PRN (Reason: neck pain, muscle spasms, cervicogenic MOSS) Qty: 60 1RF Rx Instructions: 1-2 tablets (2-4mg) taken before bedtime by mouth as needed. Do not drive afterwards as may cause drowsiness. desvenlafaxine succinate [Pristiq] 50 mg tablet extended release 24 hr 50 mg PO DAILY Qty: 30 1RF Referrals Follow up/Referrals: Leena Louis APRN [Primary Care Provider] - See instructions Activity Restrictions/Add. Instructions Additional Instructions/Restrictions: Please return to the emergency department immediately if you feel worse in any way. Follow-up with your primary care doctor within the next few days if your symptoms do not improve. Your blood work today was completely normal. I am not sure what your intermittent leg pain is coming from. However, I do not believe that this is anything life-threatening or dangerous. You can take lrul-[id number] Tylenol and/or Motrin for this discomfort. Clinical Impressions Clinical Impression: Acute leg pain Discharge ED Provider: Patricia Bell General Adult HPI General Chief complaint: Extremity Injury, Lower Stated complaint: right leg pain X 2 weeks,body aches Time Seen by Provider: 11/17/22 13:57 Mode of Arrival: Family Vehicle Source of Information: Patient Limitations: No Limitations History of Present Illness HPI narrative: The patient presents to the emergency department complaining of intermittent left upper and lower leg pain. She states that her hands feel swollen. This has been ongoing for about 2 weeks. She denies any other symptoms. Related Data Previous Rx's Medication Instructions Recorded tizanidine 2 mg tablet 2 - 4 mg PO HS PRN neck pain, 08/15/22 muscle spasms, cervicogenic MOSS #60 tabs desvenlafaxine succinate 50 mg 50 mg PO DAILY #30 tabs 09/07/22 tablet,extended release 24 hr (Pristiq) Allergies Allergy/AdvReac Type Severity Reaction Status Date / Time Penicillins Allergy Verified 09/17/22 15:33 [facility] Disclaimer: The information contained in this section may have been updated after the patient was seen, as this information can be updated by other users. Medical History (Updated 11/17/22 @ 15:15 by Patricia Bell MD) Generalized anxiety disorder Family History Grandmother Thyroid disorder Coronary artery disease Hypertension Sister Thyroid disorder Social History Smoking Status: Never smoker second hand exposure: No alcohol intake: never substance use type: denies use current occupational status: employed Travel in the last 8 weeks: None adopted: No caregiver/support person: Yes (for her 2 kids) foster care: No household members: family and other details: lives with her 2 daughters; grandmother; they are getting ready to move out housing: house lives independently: No marital status: life partner number of children: 2 number of grandchildren: 0 education level: high school service: No senior care: No current occupation: works at a daycare current occupational exposures/hazards: No Hx Recent Travel: No sexually active: Yes caffeine: No physical activity: none jose/episcopalian: Jehovah'S Witness special jose needs: No working smoke detector in home: Yes fire extinguisher in home: No carbon monox detector in home: Yes firearms in home: No do you feel safe at home: Yes victim of physical abuse: No victim of emotional abuse: No victim of sexual abuse: No would you like helpful sources: No ROS Obtained: Yes All systems reviewed & no additional complaints except as documented Gastrointestinal Gastrointestingal: Reports nausea (Res
[2022-11-17 14:47] LABS: Chloride 105 mmol/L (98-107); Sodium 138 mmol/L (136-145)
[2022-11-17 14:48] LABS: Potassium 3.9 mmoL/L (3.5-5.1)
[2022-11-17 14:50] LABS: Anion Gap 11.9 mEq/L (5-15); Blood Urea Nitrogen 12 mg/dl (7-17); Calcium 8.7 mg/dl (8.4-10.2); Carbon Dioxide 25 mmol/L (22.0-30.0); Creatinine Clearance Estimated 181 mL/min (50-200); Estimated Glomerular Filt Rate 105 ml/min (>60); GFR (African American) 127 ML/MIN (>60); Glucose 93 mg/dl (74-100)
[2022-11-17 14:51] LABS: Magnesium 1.8 mg/dl (1.6-2.3)
[2022-11-17 15:32] VITALS: BP 128/83; PULSE 76; RESP 17; TEMP 37; O2SAT 98
== END 2022-11-17 15:35 | disposition home or self-care (01) ==
PROVIDERS: Emergency Provider Emergency Medicine; PCP Nurse Practitioner Family
DX: M79.652 Pain in left thigh (principal); M79.662 Pain in left lower leg
CPT/HCPCS: 80048; 83735; 99283

== ENCOUNTER 2022-11-27 17:49 | Emergency (ER) | payer OTHER, SELFPAY ==
[2022-11-27 17:50] VITALS: BP 136/71; PULSE 107; RESP 17; TEMP 37.2; O2SAT 100; BMI 33.3
[2022-11-27 18:09] LABS: UTC Strep Screen (Rapid) Negative (Negative)
--- NOTE | 2022-11-27 18:18 | EXP.UTC ---
Discharge Plan Disposition Patient Disposition: Home, Self-Care Condition: Good Prescriptions Prescriptions: New huvxezowjeoipdq-xjfuhvava-KR [Bromfed DM] 2-30-10 mg/5 mL Syrup 5 ml PO Q6H PRN (Reason: Cough) Qty: 240 0RF ondansetron 4 mg Tablet,Disintegrating 4 mg PO Q8H PRN (Reason: Nausea) Qty: 12 0RF No Action tizanidine 2 mg tablet 2 - 4 mg PO HS PRN (Reason: neck pain, muscle spasms, cervicogenic MOSS) Qty: 60 1RF Rx Instructions: 1-2 tablets (2-4mg) taken before bedtime by mouth as needed. Do not drive afterwards as may cause drowsiness. desvenlafaxine succinate [Pristiq] 50 mg tablet extended release 24 hr 50 mg PO DAILY Qty: 30 1RF Referrals Follow up/Referrals: Leena Louis APRN [Primary Care Provider] - See instructions Activity Restrictions/Add. Instructions Additional Instructions/Restrictions: Drink plenty of fluids. Take tylenol or ibuprofen for pain or fever. Take the medications as directed. Follow up with your regular doctor. GO TO THE ER FOR ANY WORSENING SYMPTOMS Clinical Impressions Clinical Impression: Acute viral syndrome Stand Alone Forms Stand Alone Forms: Work/School Release Instructions Patient Instructions: DI for Viral Syndrome Discharge ED Provider: Papa Haley [facility] General Stated complaint: Sore Throat,Fever,body aches Mode of Arrival: Ambulatory Source of Information: Patient Limitations: No Limitations Time Seen by Provider: 11/27/22 18:18 Description of Symptoms (Recalled from Triage Doc. by RN): PT REPORTS BODYACHES, SORE THROAT AND FEVER. AT HOME COVID TEST NEGATIVE HEENT Symptoms (Recalled from RN notes): Yes Resp Symptoms (Recalled from RN notes): No Skin Symptoms (Recalled from RN notes): No MS Symptoms (Recalled from RN notes): No Functional Status (Recalled from RN notes): WML History of Present Illness Provider Complaint: For the past 1 day she has felt very bad. She has had body aches, chills, ear pain, sore throat, and a dry cough. 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 Related Data Previous Rx's Medication Instructions Recorded tizanidine 2 mg tablet 2 - 4 mg PO HS PRN neck pain, 08/15/22 muscle spasms, cervicogenic MOSS #60 tabs desvenlafaxine succinate 50 mg 50 mg PO DAILY #30 tabs 09/07/22 tablet,extended release 24 hr (Pristiq) rpitnxrfwyjnaly-ctnfxqbokvhlkxd-JY 5 ml PO Q6H PRN Cough #240 mL 11/27/22 2 mg-30 mg-10 mg/5 mL oral syrup (Bromfed DM) ondansetron 4 mg disintegrating 4 mg PO Q8H PRN Nausea #12 tabs 11/27/22 tablet Allergies Allergy/AdvReac Type Severity Reaction Status Date / Time Penicillins Allergy Verified 09/17/22 15:33 Worker's Comp Is this a Worker's Comp case?: No [facility] Disclaimer: The information contained in this section may have been updated after the patient was seen, as this information can be updated by other users. Medical History Generalized anxiety disorder Family History Grandmother Thyroid disorder Coronary artery disease Hypertension Sister Thyroid disorder Social History Smoking Status: Never smoker second hand exposure: No alcohol intake: never substance use type: denies use current occupational status: employed Travel in the last 8 weeks: None adopted: No caregiver/support person: Yes (for her 2 kids) foster care: No household members: family and other details: lives with her 2 daughters; grandmother; they are getting ready to move out housing: house lives independently: No marital status: life partner number of children: 2 number of grandchildren: 0 education level: high school service: No intermediate: No current occupation: works at a daycare current occupational e
[2022-11-27 18:32] VITALS: BP 136/71; PULSE 107; RESP 18; TEMP 37.2; O2SAT 100
[2022-11-27 19:31] LABS: Adenovirus,PCR Not Detected (NotDetected); Coronavirus 229E Not Detected (NotDetected); Coronavirus NL63 Not Detected (NotDetected); Coronavirus OC43 Not Detected (NotDetected); Coronovirus HKU1,PCR Not Detected (NotDetected); Human Metapneumovirus Not Detected (NotDetected); Influenza A, PCR Not Detected (NotDetected); Influenza AH1, PCR Not Detected (NotDetected); Rhinovirus/Enterovirus Not Detected (NotDetected)
[2022-11-27 19:32] LABS: Bordetella Pertussis Not Detected (NotDetected); Chlamydophila Pneumoniae, PCR Not Detected (NotDetected); Coronavirus 19, PCR Not Detected (NotDetected); Influenza AH1, 2009 Not Detected (NotDetected); Influenza AH3,PCR Not Detected (NotDetected); Influenza B, PCR Not Detected (NotDetected); Mycoplasma Pneumoniae, PCR Not Detected (NotDetected); Parainfluenza 1, PCR Not Detected (NotDetected); Parainfluenza 2, PCR Not Detected (NotDetected); Parainfluenza 3, PCR Not Detected (NotDetected); Parainfluenza 4, PCR Not Detected (NotDetected); Respiratory Syncytial Virus Not Detected (NotDetected)
== END 2022-11-27 18:33 | disposition home or self-care (01) ==
PROVIDERS: Emergency Provider Nurse Practitioner Family; PCP Nurse Practitioner Family
DX: R50.9 Fever, unspecified (principal); J02.9 Acute pharyngitis, unspecified; B34.9 Viral infection, unspecified
CPT/HCPCS: 87581; 87632; 87798; 87880; 99212; 99214; C9803; G0463; U0003; U0005

== ENCOUNTER 2022-12-31 05:34 | Emergency (ER) | payer OTHER, SELFPAY ==
[2022-12-31] VITALS (8 sets, daily range): BP systolic 83–108; BP diastolic 49–61; PULSE 71–86; RESP 16–18; TEMP 36.6–36.7; O2SAT 98–100; BMI 34.1
--- NOTE | 2022-12-31 06:00 | CT_ITS ---
PROCEDURE INFORMATION: Exam: CT Abdomen And Pelvis With Contrast Exam date and time: 12/31/2022 6:45 AM Age: 22 years old Clinical indication: Abdominal pain; Generalized; Patient HX: Abd pain, nausea TECHNIQUE: Imaging protocol: Computed tomography of the abdomen and pelvis with contrast. Radiation optimization: All CT scans at this facility use at least one of these dose optimization techniques: automated exposure control; mA and/or kV adjustment per patient size (includes targeted exams where dose is matched to clinical indication); or iterative reconstruction. Contrast material: ISOVUE; Contrast volume: 75 ml; Contrast route: IV; REPORTING DATA: Count of CT and Cardiac NM exams in prior 12 months: This patient has received [address] and 0 known cardiac nuclear medicine studies in the 12 months prior to the current study. COMPARISON: ABDPEL CT abdomen pelvis w con 01/01/2018 12:04 PM FINDINGS: Liver: Normal. No mass. Gallbladder and bile ducts: Normal. No calcified stones. No ductal dilation. Pancreas: Normal. No ductal dilation. Spleen: Normal. No splenomegaly. Adrenal glands: Normal. No mass. Kidneys and ureters: Normal. No hydronephrosis. Stomach and bowel: Unremarkable. No obstruction. No mucosal thickening. Appendix: A normal appendix is identified. Intraperitoneal space: Unremarkable. No free air. No significant fluid collection. Vasculature: Unremarkable. No abdominal aortic aneurysm. Lymph nodes: Unremarkable. No enlarged lymph nodes. Urinary bladder: Unremarkable as visualized. Reproductive: Unremarkable as visualized. Bones/joints: Unremarkable. No acute fracture. Soft tissues: Unremarkable. IMPRESSION: Unremarkable exam.
[2022-12-31 06:06] LABS: Adenovirus F 40/41, stool Not Detected (NotDetected); Astrovirus Not Detected (NotDetected); Campylobacter Not Detected (NotDetected); Clostridium Difficile A/B, PCR Not Detected (NotDetected); Cryptosporidium Not Detected (NotDetected); Cyclospora Cayetanesis Not Detected (NotDetected); Entamoeba histolytica Not Detected (NotDetected); Enteroaggregative E coli Not Detected (NotDetected); Enteropathogenic E coli Not Detected (NotDetected); Enterotoxigenic E coli Not Detected (NotDetected); Giardia lamblia Not Detected (NotDetected); Microscopic, Urine URINE MICROSCOPIC (MICROSCOPIC); Plesimonas Shigalloides, PCR Not Detected (NotDetected); Rotavirus A Not Detected (NotDetected); Salmonella, PCR Not Detected (NotDetected); Sapovirus Not Detected (NotDetected); Shiga-like toxin E coli Not Detected (NotDetected); Shigella Enterovasive E coli Not Detected (NotDetected); Vibrio Cholerae Not Detected (NotDetected); Vibrio, PCR Not Detected (NotDetected); Yersinia Entercolitica, PCR Not Detected (NotDetected)
[2022-12-31 06:08] LABS: Basophils % 0.2 % (0.1-2.0); Eosinophils # 0.1 K/mm3 (0.0-0.4); Eosinophils % 0.7 % (0.1-12.0); Hematocrit 41.1 % (37.0-47.0); Hemoglobin 13.1 g/dL (12.2-16.2); Lymphocytes # 0.8 K/mm3 (0.7-4.5); Lymphocytes % 8.4 % (10-50); Mean Corpuscular HGB Conc 31.8 g/dL (31.8-35.4); Mean Corpuscular Hemoglobin 25.2 pg (27.0-31.2); Mean Corpuscular Volume 79.3 fl (81-99); Monocytes # 0.5 K/mm3 (0.1-1.0); Monocytes % 4.8 % (1.7-9.3); Neutrophils # 8.6 K/mm3 (1.8-7.8); Neutrophils % 85.9 % (37.0-80.0); Platelet Count 290 K/mm3 (142-424); Red Blood Count 5.19 M/mm3 (4.20-5.40); Red Cell Distribution Width 15.9 % (11.5-17.5)
[2022-12-31 06:09] LABS: Appearance,Urine TURBID (Clear); Bilirubin,Urine Negative (Negative); Blood, Urine Negative (Negative); Color,Urine YELLOW (Yellow); Glucose,Urine (UA) Negative (Negative); Ketones,Urine TRACE (Negative); Leukocyte Esterase,Urine Negative (Negative); Nitrate,Urine Negative (Negative); PH,Urine 5.5 (5.0-8.5); Protein,Urine Negative (Negative); Specific Gravity, Urine >= 1.030 (1.005-1.030); Urobilinogen,Urine 0.2 EU/dl (0.2)
[2022-12-31 06:10] LABS: MANUAL DIFFERENTIAL MANUAL DIFFERENTIAL (MANUAL DIFF)
[2022-12-31 06:14] LABS: Chloride 105 mmol/L (98-107); Sodium 137 mmol/L (136-145)
[2022-12-31 06:16] LABS: Amylase 80 U/L (30-110); Blood Urea Nitrogen 12 mg/dl (7-17); Creatinine Clearance Estimated 185 mL/min (50-200); Estimated Glomerular Filt Rate 105 ml/min (>60); GFR (African American) 127 ML/MIN (>60)
[2022-12-31 06:17] LABS: Alanine Aminotransferase 25 U/L (12-78); Albumin Level 4.2 g/dl (3.5-5.0); Albumin/Globulin Ratio 1.5 (1.1-1.8); Alkaline Phosphatase 64 U/L (38-126); Aspartate Amino Transferase 27 U/L (14-36); Bilirubin,Total 0.4 mg/dl (0.2-1.3); Calcium 8.6 mg/dl (8.4-10.2); Carbon Dioxide 23 mmol/L (22.0-30.0); Globulin 2.8 g/dL (1.3-3.2); Glucose 116 mg/dl (74-100); Lipase 43 U/L (23-300)
[2022-12-31 06:18] LABS: Urine Pregnancy, HCG Qual. Negative (Negative)
[2022-12-31 06:23] LABS: Amorphous Sediment,Urine 4+ /lpf; Bacteria,Urine 4+ /lpf; Squamous Epithelial Cell,Urine Occasional #/hpf (0-5)
[2022-12-31 06:23] LABS: Eosinophils % 1 % (0-3); Lymphocytes % 11 % (10-50); Monocytes % 4 % (2-9); Neutrophils % 84 % (42-76); Total Cells Counted 100
[2022-12-31 06:24] LABS: C-Reactive Protein 1.7 mg/L (0-4)
[2022-12-31 06:26] LABS: Hypochromasia 1+; Platelet Estimate Normal
[2022-12-31 07:02] LABS: Erythrocyte Sedimentation Rate 13 mm/hr (0-20)
--- NOTE | 2022-12-31 07:02 | HMH.EDABDPAI ---
Discharge Plan Disposition Patient Disposition: Home, Self-Care Prescriptions Prescriptions: New ondansetron HCl 4 mg Tablet 4 mg PO Q8H PRN (Reason: Nausea) Qty: 20 0RF Referrals Follow up/Referrals: Leena Louis APRN [Primary Care Provider] - See instructions Clinical Impressions Clinical Impression: Enteritis Instructions Patient Instructions: DI for Enteritis Discharge ED Provider: Jackelyn (ED)[place] Abdominal Pain HPI General Chief Complaint: Abdominal Pain Stated Complaint: V/D,stomach pain Time Seen by Provider: 12/31/22 06:45 Mode of Arrival: Ambulatory Source of Information: Patient and Medical Record Limitations: No Limitations Description of Symptoms (Recalled from ER Triage Doc. by RN): pt c/o generalized abd pain, tender to palpation, N/V/D, and bilateral flank pain. pt denies any urinary symptoms. ongoing since 12/30 around noon. History of Present Illness HPI narrative: crampy abd pain with watery diarrhea since this am - no known exposure - no blood in stool and no fever MD complaint: abdominal pain Onset (ago): hour(s) Consistency: intermittent Location: diffuse Severity: moderate Associated symptoms: denies other symptoms Related Data Previous Rx's Medication Instructions Recorded ondansetron HCl 4 mg tablet 4 mg PO Q8H PRN Nausea #20 tabs 12/31/22 Allergies Allergy/AdvReac Type Severity Reaction Status Date / Time Penicillins Allergy Verified 12/31/22 06:10 [facility] Disclaimer: The information contained in this section may have been updated after the patient was seen, as this information can be updated by other users. Medical History Generalized anxiety disorder Family History Grandmother Thyroid disorder Coronary artery disease Hypertension Sister Thyroid disorder Social History Smoking Status: Never smoker second hand exposure: No alcohol intake: never substance use type: denies use current occupational status: employed Travel in the last 8 weeks: None adopted: No caregiver/support person: Yes (for her 2 kids) foster care: No household members: family and other details: lives with her 2 daughters; grandmother; they are getting ready to move out housing: house lives independently: No marital status: life partner number of children: 2 number of grandchildren: 0 education level: high school service: No jail: No current occupation: works at a daycare current occupational exposures/hazards: No Hx Recent Travel: No sexually active: Yes caffeine: No physical activity: none jose/church: Islam special jose needs: No working smoke detector in home: Yes fire extinguisher in home: No carbon monox detector in home: Yes firearms in home: No do you feel safe at home: Yes victim of physical abuse: No victim of emotional abuse: No victim of sexual abuse: No would you like helpful sources: No ROS Obtained: Yes All systems reviewed & no additional complaints except as documented Physical Exam General General appearance: alert Head Head exam: normocephalic Eye Eye exam: Present PERRL and EOMI; Absent scleral icterus ENT ENT exam: Present mucous membranes moist Neck Neck exam: Present trachea midline Respiratory Respiratory exam: Absent respiratory distress Cardiovascular Cardiovascular exam: Present regular rate Abdominal Exam Abdominal exam: Present soft and tenderness; Absent guarding, rebound or rigidity Abdominal tenderness: Present diffuse and moderate Extremities Exam Extremities exam: Present full ROM Neurological Exam Neurological exam: Present alert, oriented X3 and CN II-XII intact; Absent motor sensory deficit Psychiatric Psychiatric exam: Present normal affect Skin Skin exam: Absent ra
--- NOTE | 2022-12-31 08:44 | PC.NURSE ---
lab results relayed to . norovirus positive stool result.
[2022-12-31 08:45] LABS: Norovirus Detected (NotDetected)
== END 2022-12-31 08:56 | disposition home or self-care (01) ==
PROVIDERS: Emergency Provider Emergency Medicine; PCP Nurse Practitioner Family
DX: K52.9 Noninfective gastroenteritis and colitis, unspecified (principal); F41.1 Generalized anxiety disorder; R10.9 Unspecified abdominal pain
CPT/HCPCS: 74177; 80053; 81001; 81025; 82150; 83690; 85007; 85025; 85651; 86140; 87086; 87507; 96361; 96374; 96375; 99284; 99285; J2405; Q9967

== ENCOUNTER 2023-01-28 20:45 | Emergency (ER) | payer OTHER, SELFPAY ==
[2023-01-28 20:57] VITALS: BP 167/81; PULSE 82; RESP 16; TEMP 36.6; O2SAT 100; BMI 33.0
--- NOTE | 2023-01-28 20:59 | ECG_ITS ---
APPROVED REPORT Exam: Resting ECG HR:76 bpm ECG Measurements Heart Rate 76 AXES NC 162 P 252 QRSd 88 QRS 38 QT 379 T 50 QTc 409 Conclusion ECTOPIC ATRIAL RHYTHM ABNORMAL RHYTHM ECG UNCONFIRMED REPORT Electronically signed by : Derik Ruano MD 01/29/2023 20:28:25
[2023-01-28 21:00] VITALS: BP 126/79; PULSE 82; O2SAT 100
--- NOTE | 2023-01-28 21:00 | XR_ITS ---
PROCEDURE INFORMATION: Exam: XR Chest Exam date and time: 01/28/2023 9:00 PM Age: 22 years old Clinical indication: Shortness of breath; Additional info: Shortness of air TECHNIQUE: Imaging protocol: Radiologic exam of the chest. Views: 2 views. COMPARISON: CR XR CHEST PORTABLE 03/25/2022 11:04 AM FINDINGS: Lungs: Unremarkable. No consolidation. Pleural spaces: Unremarkable. No pleural effusion. No pneumothorax. Heart/Mediastinum: Unremarkable. No cardiomegaly. Bones/joints: Unremarkable. IMPRESSION: No acute findings.
[2023-01-28 21:07] LABS: Basophils # 0.1 K/mm3 (0-0.2); Basophils % 0.7 % (0.1-2.0); Eosinophils # 0.2 K/mm3 (0.0-0.4); Eosinophils % 2.4 % (0.1-12.0); Hematocrit 38.3 % (37.0-47.0); Hemoglobin 12.3 g/dL (12.2-16.2); Lymphocytes # 2.4 K/mm3 (0.7-4.5); Lymphocytes % 26.1 % (10-50); Mean Corpuscular Hemoglobin 24.7 pg (27.0-31.2); Mean Corpuscular Volume 77.1 fl (81-99); Mean Platelet Volume 8.2 fl (7.4-10.4); Monocytes # 0.5 K/mm3 (0.1-1.0); Monocytes % 5.5 % (1.7-9.3); Neutrophils % 65.3 % (37.0-80.0); Platelet Count 336 K/mm3 (142-424); Red Blood Count 4.96 M/mm3 (4.20-5.40); Red Cell Distribution Width 15.8 % (11.5-17.5); White Blood Count 9.2 K/mm3 (4.8-10.8)
[2023-01-28 21:13] LABS: Alanine Aminotransferase 25 U/L (12-78); Albumin Level 4.6 g/dl (3.5-5.0); Albumin/Globulin Ratio 1.5 (1.1-1.8); Alkaline Phosphatase 56 U/L (38-126); Anion Gap 16.7 mEq/L (5-15); Aspartate Amino Transferase 29 U/L (14-36); Bilirubin,Total 0.3 mg/dl (0.2-1.3); Blood Urea Nitrogen 15 mg/dl (7-17); Calcium 8.8 mg/dl (8.4-10.2); Carbon Dioxide 24 mmol/L (22.0-30.0); Chloride 104 mmol/L (98-107); Creatinine Clearance Estimated 162 mL/min (50-200); Estimated Glomerular Filt Rate 90 ml/min (>60); GFR (African American) 109 ML/MIN (>60); Glucose 86 mg/dl (74-100); Potassium 3.7 mmoL/L (3.5-5.1); Sodium 141 mmol/L (136-145); Total Protein,Serum 7.6 g/dl (6.3-8.2)
[2023-01-28 21:23] LABS: NT Pro Brain Natriuretic Pep. < 20.0 pg/mL (0-125)
[2023-01-28 21:30] VITALS: BP 119/70; PULSE 72; O2SAT 100
[2023-01-28 21:31] LABS: T4 (Thyroxine) 9.6 ug/dl (5.53-11.0)
[2023-01-28 21:34] LABS: Troponin I < 0.01 ng/ml (0.00-0.034)
[2023-01-28 21:44] LABS: Thyroid Stimulating Hormone 3.86 uIU/mL (0.465-4.68)
--- NOTE | 2023-01-28 21:53 | HMH.EDSOB ---
Discharge Plan Disposition Patient Disposition: Home, Self-Care Prescriptions Prescriptions: New azithromycin [azithromycin] 250 mg tablet 250 mg PO DIRECTED Qty: 6 0RF Rx Instructions: Take two (2) tablets on day #1, then one (1) tablet day #2 thru #5 prednisone [prednisone] 20 mg tablet 20 mg PO BID Qty: 10 0RF Referrals Follow up/Referrals: Leena Louis APRN [Primary Care Provider] - See instructions Yasmin Jin APRN [Nurse Practitioner] - See instructions Clinical Impressions Clinical Impression: Sinusitis Instructions Patient Instructions: DI for Sinusitis Discharge ED Provider: Jackelyn (ED)[place] Resp/SOB HPI General Chief Complaint: Shortness of Breath/Dyspnea Stated Complaint: SOA, lightheaded Time Seen by Provider: 01/28/23 21:10 Mode of Arrival: Family Vehicle Source of Information: Patient, Significant Other and Medical Record Limitations: No Limitations Description of Symptoms (Recalled from ER Triage Doc. by RN): 22 YO FEMALE PRESENTS WITH CC nasal pressure and facial pressure, soa. History of Present Illness nasal and facial pressure with feeling of sob MD Complaint: shortness of breath Onset (ago): day(s) Severity: moderate Consistency/Duration: intermittent Treatment prior to arrival: none Related Data Home oxygen amount: none Previous Rx's Medication Instructions Recorded azithromycin 250 mg tablet 250 mg PO DIRECTED #6 tabs 01/28/23 prednisone 20 mg tablet 20 mg PO BID #10 tabs 01/28/23 Allergies Allergy/AdvReac Type Severity Reaction Status Date / Time Penicillins Allergy Verified 12/31/22 06:10 [facility] Disclaimer: The information contained in this section may have been updated after the patient was seen, as this information can be updated by other users. Medical History Generalized anxiety disorder Family History Grandmother Thyroid disorder Coronary artery disease Hypertension Sister Thyroid disorder Social History Smoking Status: Unknown if ever smoked second hand exposure: No alcohol intake: never substance use type: denies use current occupational status: employed Travel in the last 8 weeks: None adopted: No caregiver/support person: Yes (for her 2 kids) foster care: No household members: family and other details: lives with her 2 daughters; grandmother; they are getting ready to move out housing: house lives independently: No marital status: life partner number of children: 2 number of grandchildren: 0 education level: high school service: No longterm: No current occupation: works at a daycare current occupational exposures/hazards: No Hx Recent Travel: No sexually active: Yes caffeine: No physical activity: none jose/rastafarian: Baptism special jose needs: No working smoke detector in home: Yes fire extinguisher in home: No carbon monox detector in home: Yes firearms in home: No do you feel safe at home: Yes victim of physical abuse: No victim of emotional abuse: No victim of sexual abuse: No would you like helpful sources: No ROS Obtained: Yes All systems reviewed & no additional complaints except as documented Physical Exam General General appearance: alert Head Head exam: normocephalic Eye Eye exam: Present PERRL, EOMI and scleral icterus ENT ENT exam: Present normal oropharynx and mucous membranes moist Neck Neck exam: Present trachea midline Respiratory Respiratory exam: Present normal lung sounds bilaterally; Absent respiratory distress Cardiovascular Cardiovascular exam: Present regular rate Abdominal Exam Abdominal exam: Present soft Extremities Exam Extremities exam: Present full ROM; Absent calf tenderness Neurological Exam Neurological exam: Present
[2023-01-28 22:07] VITALS: BP 114/62; PULSE 79; O2SAT 99
[2023-01-28 22:30] VITALS: BP 101/53; PULSE 69; O2SAT 100
--- NOTE | 2023-01-28 22:43 | PC.NURSE ---
Pt ambulatory to bathroom to provide urine sample. No other needs voiced at this time.
[2023-01-28 22:48] LABS: Microscopic, Urine URINE MICROSCOPIC (MICROSCOPIC)
[2023-01-28 22:50] LABS: Appearance,Urine CLEAR (Clear); Bilirubin,Urine Negative (Negative); Blood, Urine TRACE-I (Negative); Color,Urine YELLOW (Yellow); Glucose,Urine (UA) Negative (Negative); Ketones,Urine Negative (Negative); Leukocyte Esterase,Urine Negative (Negative); Nitrate,Urine Negative (Negative); Protein,Urine TRACE (Negative); Specific Gravity, Urine >= 1.030 (1.005-1.030)
[2023-01-28 22:54] LABS: Urine Pregnancy, HCG Qual. Negative (Negative)
[2023-01-28 23:01] VITALS: BP 122/73; PULSE 66; RESP 19; TEMP 36.6
[2023-01-28 23:10] LABS: Bacteria,Urine Trace /lpf; RBC,Urine Occasional #/hpf (0-3); WBC,Urine Occasional #/hpf (0-3)
== END 2023-01-28 23:06 | disposition home or self-care (01) ==
PROVIDERS: Emergency Provider Emergency Medicine; PCP Nurse Practitioner Family
DX: J32.8 Other chronic sinusitis (principal); R06.02 Shortness of breath; R42 Dizziness and giddiness; F41.1 Generalized anxiety disorder
CPT/HCPCS: 71046; 80053; 81001; 81025; 83880; 84436; 84443; 84484; 85025; 93005; 93041; 96374; 99285

== ENCOUNTER 2023-03-07 16:49 | Emergency (ER) | payer OTHER, SELFPAY ==
[2023-03-07 17:00] VITALS: BP 136/83; PULSE 70; RESP 18; TEMP 36.8; O2SAT 100; BMI 35.4
--- NOTE | 2023-03-07 17:13 | EXP.UTC ---
Discharge Plan Disposition Patient Disposition: Home, Self-Care Condition: Good Prescriptions Prescriptions: New benzonatate 100 mg capsule 100 mg PO TID PRN (Reason: cough) Qty: 30 0RF azithromycin [Zithromax Z-Wil] 250 mg tablet See Rx Instructions .ROUTE .COMPLEX 5 Days Qty: 6 0RF Rx Instructions: For 250 mg dose pack: take 500 mg today (day 1), then 250 mg for 4 days (days 2-5) prednisone [prednisone] 20 mg tablet 20 mg PO BID 5 Days Qty: 10 0RF Referrals Follow up/Referrals: Leena Louis APRN [Primary Care Provider] - See instructions Activity Restrictions/Add. Instructions Additional Instructions/Restrictions: *Monitor Temp, Over the counter Motrin or Tylenol as directed/as needed Tylenol every 4 hours and Motrin every 6 hours (as long as your family doctor has told you that you can take it) for fever or pain. and straight to ER if unable to lower temp less than 101.0 after medication given *Warm salt water gargles may help to soothe the throat *Throat Lozenges? *Warm fluids like tea with honey may help to soothe the throat? *Sleep elevated *Humidifier/Vaporizer *Flonase 2 sprays in each nostril daily but be aware that it may take 2-3 days before you notice improvement Take medication as prescribed Your throat swab was sent for culture. Those results are typically sent to your primary care. Be sure to follow up in 2-3 days with your family doctor/primary care physician if no improvement so they can review those result and treat if necessary. If you don?t have a primary care doctor, I recommend you get one but in the mean time, you will have to return to a walk in clinic Follow up IMMEDIATELY for new or worsening symptoms or no Noticeable improvement over the next 48-72 hours. 911 for difficulty breathing or swallowing Clinical Impressions Clinical Impression: Sinusitis Qualifiers: Sinusitis location: unspecified location Chronicity: unspecified Qualified Code(s): J32.9 - Chronic sinusitis, unspecified Stand Alone Forms Stand Alone Forms: Work/School Release Instructions Patient Instructions: Sinuszenia, DI for Sinusitis Discharge ED Provider: Paulette GodoyH [facility] HPI General Stated complaint: Sore throat; headache; cough Mode of Arrival: Ambulatory Source of Information: Patient Limitations: No Limitations Time Seen by Provider: 03/07/23 17:13 Description of Symptoms (Recalled from Triage Doc. by RN): PATIENT C/O SORE THROAT, COUGH, AND HEADACHE X 1 WEEK HEENT Symptoms (Recalled from RN notes): Yes Resp Symptoms (Recalled from RN notes): Yes Skin Symptoms (Recalled from RN notes): No MS Symptoms (Recalled from RN notes): No Functional Status (Recalled from RN notes): WNL History of Present Illness Provider Complaint: Patient states that she hasnt felt well for over a week States that she is having a cough sinus and chest congestion, headache and feeling achy today States that she is feeling worse today so she came in States that she has been around people with strep throat and COVID Related Data Previous Rx's Medication Instructions Recorded azithromycin 250 mg tablet See Rx Instructions PO .COMPLEX 5 03/07/23 (Zithromax Z-Wil) days #6 tabs benzonatate 100 mg capsule 100 mg PO TID PRN cough #30 caps 03/07/23 prednisone 20 mg tablet 20 mg PO BID 5 days #10 tabs 03/07/23 Allergies Allergy/AdvReac Type Severity Reaction Status Date / Time Penicillins Allergy Verified 02/05/23 15:36 Worker's Comp Is this a Worker's Comp case?: No [facility] Disclaimer: The information contained in this section may have been updated after the patient was seen, as this information can be updated by other users. Medical History (Updated 03/07/23 @ 17:30 by Paulette Godoy APRN) Chronic maxillary sinusitis Generalized anxiety disorder Sinus pressure Family History Grandmother
[2023-03-07 17:19] LABS: UTC Strep Screen (Rapid) Negative (Negative)
[2023-03-07 17:21] VITALS: BP 136/83; PULSE 70; RESP 18; TEMP 36.8; O2SAT 100
== END 2023-03-07 17:36 | disposition home or self-care (01) ==
PROVIDERS: Emergency Provider Nurse Practitioner; PCP Nurse Practitioner Family
DX: J01.90 Acute sinusitis, unspecified (principal); R53.81 Other malaise; F41.1 Generalized anxiety disorder
CPT/HCPCS: 87880; 99212; 99214; G0463

== ENCOUNTER 2023-03-27 17:08 | Emergency (ER) | payer OTHER, SELFPAY ==
[2023-03-27 17:15] VITALS: BP 107/70; PULSE 96; RESP 16; TEMP 36.9; O2SAT 98; BMI 32.3
--- NOTE | 2023-03-27 17:18 | XR_ITS ---
PROCEDURE INFORMATION: Exam: XR Right Hand Exam date and time: 03/27/2023 5:22 PM Age: 22 years old Clinical indication: Injury or trauma; Other: Laceration; Right; Patient HX: Lac on posterior side of hand at bottom of thumb; Additional info: Lac, eval for foreign body (glass) TECHNIQUE: Imaging protocol: Radiologic exam of the right hand. Views: 1 or 2 views. COMPARISON: No relevant prior studies available. FINDINGS: Bones/joints: Normal. Soft tissues: No radiopaque foreign bodies identified at the soft tissues of the dorsal side of the thumb. IMPRESSION: No radiopaque foreign bodies identified at the soft tissues of the dorsal side of the thumb.
--- NOTE | 2023-03-27 17:27 | HMH.EDGENADL ---
Discharge Plan Disposition Patient Disposition: Home, Self-Care Condition: Good Prescriptions Prescriptions: New doxycycline monohydrate 100 mg tablet 100 mg PO BID 10 Days Qty: 20 0RF No Action benzonatate 100 mg capsule 100 mg PO TID PRN (Reason: cough) Qty: 30 0RF azithromycin [Zithromax Z-Wil] 250 mg tablet See Rx Instructions .ROUTE .COMPLEX 5 Days Qty: 6 0RF Rx Instructions: For 250 mg dose pack: take 500 mg today (day 1), then 250 mg for 4 days (days 2-5) prednisone [prednisone] 20 mg tablet 20 mg PO BID 5 Days Qty: 10 0RF Referrals Follow up/Referrals: Leena Louis APRN [Primary Care Provider] - See instructions Activity Restrictions/Add. Instructions Additional Instructions/Restrictions: Please take the antibiotics as dicussed. Please return with any new or worsening symptoms such as fever, pus from wound, pain along joint or tendons, pain elsewhere. Your stitches will need to be removed. Clinical Impressions Clinical Impression: Hand laceration Qualifiers: Encounter type: initial encounter Foreign body presence: without foreign body Laterality: right Qualified Code(s): S61.411A - Laceration without foreign body of right hand, initial encounter Instructions Patient Instructions: DI for Laceration Repair Discharge ED Provider: Aleksandr Sanchez Adult HPI General Chief complaint: Wound/Laceration Stated complaint: AO 03/27, right thumb lac Time Seen by Provider: 03/27/23 17:19 Mode of Arrival: Ambulatory Source of Information: Patient Limitations: No Limitations Description of Symptoms (Recalled from ER Triage Doc. by RN): 22 yo F presents to ED laceration to right hand. pt reports that she was doing the dishes and cut her hand. unknown last date of tetanus vaccine. History of Present Illness HPI narrative: Patient presents for evaluation of laceration to dorsal aspect of right hand sustained shortly prior to arrival by piece of glass while washing dishes. Dishwater was cleaning, patient is unsure of last tetanus shot, no injury elsewhere, previous therapies include controlled bleeding with direct pressure. Denies any motor weakness, describes associated paresthesias over the dorsal aspect of right hand over thenar eminence. Patient is right-hand dominant. No lightheadedness or syncope or presyncope. Patient is unsure of any foreign body in wound. Denies chronic medical issues or blood thinner usage. Related Data Previous Rx's Medication Instructions Recorded azithromycin 250 mg tablet See Rx Instructions PO .COMPLEX 5 03/07/23 (Zithromax Z-Wil) days #6 tabs benzonatate 100 mg capsule 100 mg PO TID PRN cough #30 caps 03/07/23 prednisone 20 mg tablet 20 mg PO BID 5 days #10 tabs 03/07/23 doxycycline monohydrate 100 mg 100 mg PO BID 10 days #20 tabs 03/27/23 tablet Allergies Allergy/AdvReac Type Severity Reaction Status Date / Time Penicillins Allergy Verified 02/05/23 15:36 [facility] Disclaimer: The information contained in this section may have been updated after the patient was seen, as this information can be updated by other users. Medical History (Updated 03/27/23 @ 19:09 by Aleksandr Sanchez MD) Chronic maxillary sinusitis Generalized anxiety disorder Sinus pressure Family History Grandmother Thyroid disorder Coronary artery disease Hypertension Sister Thyroid disorder Social History Smoking Status: Never smoker second hand exposure: No alcohol intake: never substance use type: denies use current occupational status: employed Travel in the last 8 weeks: None adopted: No caregiver/support person: Yes (for her 2 kids) foster care: No household members: family and other details: lives with her 2 daughters; grandmother; they are getting ready to move out housing: house lives independently: No marital
[2023-03-27 19:25] VITALS: BP 109/69; PULSE 76; RESP 16; TEMP 36.6; O2SAT 98
== END 2023-03-27 19:12 | disposition home or self-care (01) ==
PROVIDERS: Emergency Provider Emergency Medicine; PCP Nurse Practitioner Family
DX: S61.011A Laceration without foreign body of right thumb without damage to nail, initial encounter (principal); F41.1 Generalized anxiety disorder; Z23 Encounter for immunization; W25.XXXA Contact with sharp glass, initial encounter; Y93.G1 Activity, food preparation and clean up
CPT/HCPCS: 12001; 73120; 90715; 96372; 99283

== ENCOUNTER 2023-03-30 22:17 | Emergency (ER) | payer OTHER, SELFPAY ==
[2023-03-30 22:18] VITALS: BP 147/71; PULSE 91; RESP 16; TEMP 37.1; O2SAT 99; BMI 32.3
[2023-03-30 22:30] VITALS: BP 129/75; PULSE 80; RESP 18; O2SAT 98
--- NOTE | 2023-03-30 22:38 | HMH.EDGENADL ---
Discharge Plan Disposition Patient Disposition: Home, Self-Care Condition: Good Prescriptions Prescriptions: No Action doxycycline monohydrate 100 mg tablet 100 mg PO BID Patient Comments: TAKE ONE TABLET BY MOUTH TWICE DAILY FOR 10 DAYS -- FINISH ALL MEDICINE -- Referrals Follow up/Referrals: Leena Louis APRN [Primary Care Provider] - See instructions Activity Restrictions/Add. Instructions Additional Instructions/Restrictions: Please follow-up with your primary care provider. Please return to the emergency department if you develop any new or worsening symptoms or become concerned for your health. Clinical Impressions Clinical Impression: Headache Discharge ED Provider: Meche Villar General Adult HPI <Meche Villar MD - Last Filed: 03/30/23 22:40> General Chief complaint: Headache Stated complaint: MOSS Time Seen by Provider: 03/30/23 22:33 Mode of Arrival: Ambulatory Source of Information: Patient Limitations: No Limitations Description of Symptoms (Recalled from ER Triage Doc. by RN): Presents to ED with c/o a headache since saturday but stated it has gotten worse today. Patient further reports chills that began at 1700 with no fever. Patient reports taking Tylenol at 0900, Ibuprofen at approx. 1100, Nurtec at approx. 1400, and aleve at approx. 1600 with no relief. History of Present Illness HPI narrative: Patient is a 22-year-old female here with a headache. States she has a history of headaches this past year has 1-2 headaches a week typically resolved with ibuprofen but this 1 has not. Started yesterday slowly worsens maximal intensity was today over 24 hours. There is no thunderclap component to this. No changes in vision no change in coordination no meningismus no fevers or chills. No other neurologic symptoms that she claims. Related Data Home Medications Medication Instructions Recorded Confirmed doxycycline monohydrate 100 mg 100 mg PO BID Infection 03/30/23 03/30/23 tablet Allergies Allergy/AdvReac Type Severity Reaction Status Date / Time Penicillins Allergy Verified 02/05/23 15:36 PFS <Meche Villar MD - Last Filed: 03/30/23 22:40> PFS Disclaimer: The information contained in this section may have been updated after the patient was seen, as this information can be updated by other users. Medical History (Updated 03/30/23 @ 22:40 by Meche Villar MD) Chronic maxillary sinusitis Generalized anxiety disorder Sinus pressure Family History Grandmother Thyroid disorder Coronary artery disease Hypertension Sister Thyroid disorder Social History Smoking Status: Never smoker second hand exposure: No alcohol intake: never substance use type: denies use current occupational status: employed Travel in the last 8 weeks: None adopted: No caregiver/support person: Yes (for her 2 kids) foster care: No household members: family and other details: lives with her 2 daughters; grandmother; they are getting ready to move out housing: house lives independently: No marital status: life partner number of children: 2 number of grandchildren: 0 education level: high school service: No half-way: No current occupation: works at a daycare current occupational exposures/hazards: No Hx Recent Travel: No sexually active: Yes caffeine: No physical activity: none jose/gnosticist: Mormonism special jose needs: No working smoke detector in home: Yes fire extinguisher in home: No carbon monox detector in home: Yes firearms in home: No do you feel safe at home: Yes victim of physical abuse: No victim of emotional abuse: No victim of sexual abuse: No would you like helpful sources: No <Meche Villar MD - Last Filed: 03/30/23 22:40> ROS Obtained: Yes All systems reviewed & no
--- NOTE | 2023-03-30 22:45 | PC.NURSE ---
Rounded on patient, no concerns at this time.
[2023-03-30 23:00] VITALS: BP 117/65; PULSE 80; RESP 17; O2SAT 100
--- NOTE | 2023-03-30 23:03 | PC.NURSE ---
Rounded on patient; call light within reach of patient
--- NOTE | 2023-03-30 23:36 | PC.NURSE ---
Rounded on patient; patient resting at this time. Will continue to monitor V/S. Call savage within reach of patient
[2023-03-31] VITALS: BP 119/50; PULSE 67; RESP 16; TEMP 37.1; O2SAT 98
== END 2023-03-31 00:06 | disposition home or self-care (01) ==
PROVIDERS: Emergency Provider Student in an Organized Health Care Education/Training Program; PCP Nurse Practitioner Family
DX: R51.9 Headache, unspecified (principal); F41.1 Generalized anxiety disorder
CPT/HCPCS: 96361; 96374; 96375; 99284

== ENCOUNTER 2023-03-31 10:55 | Emergency (ER) | payer OTHER, SELFPAY ==
[2023-03-31 11:00] VITALS: BP 110/62; PULSE 78; RESP 20; TEMP 37.4; O2SAT 100; BMI 34.0
--- NOTE | 2023-03-31 11:12 | EXP.UTC ---
Discharge Plan Disposition Patient Disposition: Still a Patient Condition: Undetermined Prescriptions Prescriptions: No Action doxycycline monohydrate 100 mg tablet 100 mg PO BID Patient Comments: TAKE ONE TABLET BY MOUTH TWICE DAILY FOR 10 DAYS -- FINISH ALL MEDICINE -- Referrals Follow up/Referrals: Leena Louis APRN [Primary Care Provider] - See instructions Activity Restrictions/Add. Instructions Additional Instructions/Restrictions: Return to ER for further workup Clinical Impressions Clinical Impression: Headache Discharge ED Provider: Liliana Lan [facility] [place] HPI General Stated complaint: h/a Mode of Arrival: Ambulatory Source of Information: Patient Limitations: No Limitations Time Seen by Provider: 03/31/23 11:14 Description of Symptoms (Recalled from Triage Doc. by RN): PATIENT C/O SEVERE MIGRAINE WITH NECK AND EYE PAIN THAT STARTED YESTERDAY. SHE REPORTS BEING SEEN IN ER LAST NIGHT AND GIVEN A MIGRAINE COCKTAIL BUT IT DID NOT HELP. SHE ALSO REPORTS TAKING ALEVE, IBUPROFEN, TYLENOL, AND NURTEC YESTERDAY WITHOUT RELIEF HEENT Symptoms (Recalled from RN notes): Yes Resp Symptoms (Recalled from RN notes): No Skin Symptoms (Recalled from RN notes): No MS Symptoms (Recalled from RN notes): No Functional Status (Recalled from RN notes): WNL History of Present Illness Provider Complaint: Patient presents with headache. Started 2 days ago, has gotten progressively worse. Saturday night when it started, she just went to bed. Yesterday she took Motrin, Aleve, Tylenol, Nurtec. Still had no relief and ended up coming to ER for treatment. Given migraine cocktail and IV fluids. States she didn't have a lot of improvement, but it did make her able to fall asleep. Woke up with an even worse headache this am. Starts behind left eye and radiates across forehead, down back of neck. Even her scalp is sore to touch. Moving her eyes makes her feel as if she will pass out. Changing positions causes a pain so severe so doesn't want to move. Has had headaches before, but never one as bad as this and never one that didn't go away with treatment. Denies blurred vision. Does have photophobia. Onset (ago): day(s) (2) Location: head Severity: severe Severity scale (1-10): 10 Quality: stabbing, sharp and constant Consistency: constant Relieving factors: none and movement Exacerbating factors: immobilization Associated symptoms: headaches Treatments prior to arrival: other (Tylenol, Motrin, Aleve, Nurtec, migraine cocktail in ER) Related Data Home Medications Medication Instructions Recorded Confirmed doxycycline monohydrate 100 mg 100 mg PO BID Infection 03/30/23 03/30/23 tablet Allergies Allergy/AdvReac Type Severity Reaction Status Date / Time Penicillins Allergy Verified 02/05/23 15:36 Worker's Comp Is this a Worker's Comp case?: No [facility] Disclaimer: The information contained in this section may have been updated after the patient was seen, as this information can be updated by other users. Medical History (Updated 03/31/23 @ 11:27 by TUCKER Singleton) Chronic maxillary sinusitis Generalized anxiety disorder Sinus pressure Family History Grandmother Thyroid disorder Coronary artery disease Hypertension Sister Thyroid disorder Social History Smoking Status: Never smoker second hand exposure: No alcohol intake: never substance use type: denies use current occupational status: employed Travel in the last 8 weeks: None adopted: No caregiver/support person: Yes (for her 2 kids) foster care: No household members: family and other details: lives with her 2 daughters; grandmother; they are getting ready to move out housing: house lives independently: No marital status: life partner number of children: 2 number of grandchildren: 0
--- NOTE | 2023-03-31 11:59 | CT_ITS ---
PROCEDURE INFORMATION: Exam: CT Head Without Contrast Exam date and time: 03/31/2023 12:52 PM Age: 22 years old Clinical indication: Pain; Headache; Migraine; Without aura; Does not respond to medication TECHNIQUE: Imaging protocol: Computed tomography of the head without contrast. Radiation optimization: All CT scans at this facility use at least one of these dose optimization techniques: automated exposure control; mA and/or kV adjustment per patient size (includes targeted exams where dose is matched to clinical indication); or iterative reconstruction. REPORTING DATA: Count of CT and Cardiac NM exams in prior 12 months: This patient has received 2 known CTs and 0 known cardiac nuclear medicine studies in the 12 months prior to the current study. COMPARISON: MR HEAD/BRAIN WO CON 08/07/2022 4:22 PM FINDINGS: Brain: No evidence of acute parenchymal hemorrhage, extra-axial collection or local regional mass effect. Cerebral ventricles: The ventricles, sulci and cisterns are normal in size and configuration. No hydrocephalus or midline structure shift Pituitary gland and sella: Sellar/parasellar structures, orbits and craniocervical junction are unremarkable Paranasal sinuses: Visualized sinuses are unremarkable. No fluid levels. Mastoid air cells: Visualized mastoid air cells are well aerated. Bones/joints: No calvarial fracture Soft tissues: Unremarkable. IMPRESSION: No acute intracranial abnormality. No calvarial fracture.
--- NOTE | 2023-03-31 12:00 | HMH.EDGENADL ---
Discharge Plan Disposition Patient Disposition: Home, Self-Care Condition: Fair Prescriptions Prescriptions: No Action doxycycline monohydrate 100 mg tablet 100 mg PO BID Patient Comments: TAKE ONE TABLET BY MOUTH TWICE DAILY FOR 10 DAYS -- FINISH ALL MEDICINE -- Referrals Follow up/Referrals: Leena Louis APRN [Primary Care Provider] - See instructions Activity Restrictions/Add. Instructions Additional Instructions/Restrictions: You were evaluated in the emergency department today for persistent headache. CT was negative, labs are reassuring, however you declined to have lumbar puncture performed and indicated understanding that you could have a viral meningitis or other abnormality present that we are not able to evaluate without this study. You received Toradol, magnesium, and droperidol. Your symptoms were moderately relieved. We discussed the option for admission which you declined and stated you would rather go home and follow-up with your neurologist. I believe this is reasonable. Please continue taking all home medications as prescribed. Rest, drink plenty of water, and call your neurologist for an appointment as soon as possible. Also make an appointment with your primary care physician for reevaluation. Return to the emergency department with new or worsening symptoms. Clinical Impressions Clinical Impression: Headache Qualifiers: Headache type: unspecified Headache chronicity pattern: acute headache Intractability: intractable Qualified Code(s): R51.9 - Headache, unspecified Discharge ED Provider: Latia Puga Adult HPI General Chief complaint: Headache Stated complaint: h/a Time Seen by Provider: 03/31/23 11:14 Mode of Arrival: Ambulatory Source of Information: Patient Limitations: No Limitations Description of Symptoms (Recalled from ER Triage Doc. by RN): PATIENT C/O SEVERE MIGRAINE WITH NECK AND EYE PAIN THAT STARTED YESTERDAY. SHE REPORTS BEING SEEN IN ER LAST NIGHT AND GIVEN A MIGRAINE COCKTAIL BUT IT DID NOT HELP. SHE ALSO REPORTS TAKING ALEVE, IBUPROFEN, TYLENOL, AND NURTEC YESTERDAY WITHOUT RELIEF History of Present Illness HPI narrative: This otherwise healthy 22-year-old female presents to the emergency department with headache. Patient states she presented with the same thing yesterday and received migraine cocktail including Benadryl and other medications that she does not remember. She states this did not really help her. She returns today because she is having persistent pain. She is not having any new symptoms, no numbness, tingling, weakness, no vision changes, nausea, or vomiting. She is sensitive to light and sound. Patient also states she has taken Aleve, ibuprofen, Tylenol, and Nurtec without relief of symptoms. Onset (ago): day(s) (2) Location: head Severity: severe Severity scale (1-10): 10 Quality: stabbing, sharp and constant Relieving factors: none and movement Exacerbating factors: immobilization Associated symptoms: headaches Treatments prior to arrival: other (Tylenol, Motrin, Aleve, Nurtec, migraine cocktail in ER) Related Data Home Medications Medication Instructions Recorded Confirmed doxycycline monohydrate 100 mg 100 mg PO BID Infection 03/30/23 03/30/23 tablet Allergies Allergy/AdvReac Type Severity Reaction Status Date / Time Penicillins Allergy Verified 02/05/23 15:36 [facility] Disclaimer: The information contained in this section may have been updated after the patient was seen, as this information can be updated by other users. Medical History (Updated 03/31/23 @ 15:46 by Latia Puga MD) Chronic maxillary sinusitis Generalized anxiety disorder Sinus pressure Family History Grandmother Thyroid disorder Coronary artery disease Hypertension Sister Thyroid disorder Social History Smoking Status: Nev
[2023-03-31 12:01] VITALS: BP 104/68; PULSE 86; RESP 16; TEMP 36.6; O2SAT 100; BMI 33.8
--- NOTE | 2023-03-31 12:08 | ECG_ITS ---
APPROVED REPORT Exam: Resting ECG HR:76 bpm ECG Measurements Heart Rate 76 AXES MT 169 P 35 QRSd 88 QRS 69 QT 376 T 43 QTc 407 Conclusion SINUS RHYTHM LOW QRS VOLTAGE IN PRECORDIAL LEADS [QRS DEFLECTION < 1.0 mV IN CHEST LEADS] BORDERLINE ECG UNCONFIRMED REPORT Electronically signed by : Derik Ruano MD 04/01/2023 15:51:43
[2023-03-31 12:42] LABS: HCG Qualitative, Serum Negative (Negative)
[2023-03-31 13:24] VITALS: BP 141/88; PULSE 81; O2SAT 100
[2023-03-31 13:28] LABS: Basophils % 0.6 % (0.1-2.0); Eosinophils # 0.1 K/mm3 (0.0-0.4); Eosinophils % 1.8 % (0.1-12.0); Hematocrit 35.7 % (37.0-47.0); Hemoglobin 11.6 g/dL (12.2-16.2); Lymphocytes # 1.1 K/mm3 (0.7-4.5); Lymphocytes % 18.6 % (10-50); Mean Corpuscular HGB Conc 32.5 g/dL (31.8-35.4); Mean Corpuscular Hemoglobin 26.1 pg (27.0-31.2); Mean Corpuscular Volume 80.3 fl (81-99); Mean Platelet Volume 8.6 fl (7.4-10.4); Monocytes # 0.4 K/mm3 (0.1-1.0); Monocytes % 6.3 % (1.7-9.3); Neutrophils # 4.1 K/mm3 (1.8-7.8); Neutrophils % 72.7 % (37.0-80.0); Platelet Count 272 K/mm3 (142-424); Red Blood Count 4.45 M/mm3 (4.20-5.40); White Blood Count 5.7 K/mm3 (4.8-10.8)
[2023-03-31 13:29] LABS: Chloride 106 mmol/L (98-107); Potassium 3.8 mmoL/L (3.5-5.1); Sodium 139 mmol/L (136-145)
[2023-03-31 13:30] VITALS: BP 160/90; PULSE 82; O2SAT 100
[2023-03-31 13:31] LABS: Blood Urea Nitrogen 13 mg/dl (7-17); Creatinine Clearance Estimated 148 mL/min (50-200); Estimated Glomerular Filt Rate 78 ml/min (>60); GFR (African American) 95 ML/MIN (>60)
[2023-03-31 13:32] LABS: Alanine Aminotransferase 26 U/L (12-78); Albumin Level 3.8 g/dl (3.5-5.0); Albumin/Globulin Ratio 1.3 (1.1-1.8); Alkaline Phosphatase 53 U/L (38-126); Anion Gap 12.8 mEq/L (5-15); Aspartate Amino Transferase 31 U/L (14-36); Bilirubin,Total 0.5 mg/dl (0.2-1.3); Calcium 9.2 mg/dl (8.4-10.2); Carbon Dioxide 24 mmol/L (22.0-30.0); Globulin 2.9 g/dL (1.3-3.2); Glucose 97 mg/dl (74-100); Total Protein,Serum 6.7 g/dl (6.3-8.2)
[2023-03-31 14:00] VITALS: BP 178/103; PULSE 84; O2SAT 98
--- NOTE | 2023-03-31 14:05 | PC.NURSE ---
rounded on pt she states she has some relief, call light at bs
--- NOTE | 2023-03-31 14:21 | PC.NURSE ---
pt ambulated to restroom with no problems
--- NOTE | 2023-03-31 15:46 | PC.NURSE ---
rounded on pt no needs visitor at bs
[2023-03-31 15:57] VITALS: BP 178/103; PULSE 84; RESP 16; TEMP 36.7
== END 2023-03-31 15:58 | disposition home or self-care (01) ==
LOC: UTC 11:16 → ER 11:21
PROVIDERS: Emergency Provider Emergency Medicine; PCP Nurse Practitioner Family
DX: R51.9 Headache, unspecified (principal); F41.1 Generalized anxiety disorder
CPT/HCPCS: 70450; 80053; 84703; 85025; 93005; 96361; 96374; 96375; 99285; J1790; J3475

== ENCOUNTER 2023-04-07 11:15 | Emergency (ER) | payer OTHER, SELFPAY ==
[2023-04-07 11:20] VITALS: BP 118/68; PULSE 67; RESP 18; TEMP 36.8; O2SAT 99; BMI 33.9
[2023-04-07 11:36] VITALS: BP 118/68; PULSE 67; RESP 18; TEMP 36.8; O2SAT 99
--- NOTE | 2023-04-07 11:54 | PC.NURSE ---
Pt came and I removed 6 stitches from her right hand. Once the stitches were removed there was a little separation of the skin. There was no blood, or secretions coming from the site. It was red and irritated. Pt stated that she had these stitches in place for over 11 days. I had Papa Haley APRN look at the site before discharging the patient.
== END 2023-04-07 11:36 | disposition home or self-care (01) ==
LOC: UTC 11:18
PROVIDERS: Emergency Provider Nurse Practitioner Family; PCP Nurse Practitioner Family
DX: Z48.02 Encounter for removal of sutures (principal)

== ENCOUNTER 2023-06-09 08:38 | Emergency (ER) | payer OTHER, SELFPAY ==
[2023-06-09 08:50] VITALS: BP 126/88; PULSE 93; RESP 17; TEMP 36.6; O2SAT 98; BMI 34.9
--- NOTE | 2023-06-09 09:12 | EXP.UTC ---
Discharge Plan Disposition Patient Disposition: Home, Self-Care Condition: Good Prescriptions Prescriptions: New zyhwnsqzgnmfdcq-ktqekrofs-TA [Bromfed DM] 2-30-10 mg/5 mL Syrup 10 ml PO Q4H PRN (Reason: Cough) Qty: 150 0RF Referrals Follow up/Referrals: Leena Louis APRN [Primary Care Provider] - See instructions Activity Restrictions/Add. Instructions Additional Instructions/Restrictions: *Monitor Temp, Over the counter Motrin or Tylenol as directed/as needed Tylenol every 4 hours and Motrin every 6 hours (as long as your family doctor has told you that you can take it) for fever or pain. and straight to ER if unable to lower temp less than 101.0 after medication given *Warm salt water gargles may help to soothe the throat *Throat Lozenges? *Warm fluids like tea with honey may help to soothe the throat? *Sleep elevated *Humidifier/Vaporizer *Flonase 2 sprays in each nostril daily but be aware that it may take 2-3 days before you notice improvement *Bromfed may cause drowsiness. Know how it effects you (your child) before driving, caring for small child, or sending your child to school. Not other antihistamines/allergy medications while taking bromfed Your throat swab was sent for culture. Those results are typically sent to your primary care. Be sure to follow up in 2-3 days with your family doctor/primary care physician if no improvement so they can review those result and treat if necessary. If you don?t have a primary care doctor, I recommend you get one but in the mean time, you will have to return to a walk in clinic Follow up IMMEDIATELY for new or worsening symptoms or no Noticeable improvement over the next 48-72 hours. 911 for difficulty breathing or swallowing You were tested for today for COVID19 your test result should be back in the next 24 hours You may check your results on the [facility] My Health Portal if your COVID test is positive you must Quarantine for 5 days Clinical Impressions Clinical Impression: Viral upper respiratory tract infection with cough Stand Alone Forms Stand Alone Forms: Work/School Release Instructions Patient Instructions: Common Cold, Cough, DI for Viral Upper Respiratory Infection -- Adult Discharge ED Provider: Paulette Godoy [facility] [place] HPI General Stated complaint: sore throat,congestion,cough Mode of Arrival: Ambulatory Source of Information: Patient Limitations: No Limitations Time Seen by Provider: 06/09/23 09:12 Description of Symptoms (Recalled from Triage Doc. 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 States that for the last couple of days she has been having sinus congestion, sore throat and cough States that she was worried she may have strep throat or something Related Data Previous Rx's Medication Instructions Recorded scgzuvzgxumuyxu-rbpimkfmuirucwl-FV 10 ml PO Q4H PRN Cough #150 mL 06/09/23 2 mg-30 mg-10 mg/5 mL oral syrup (Bromfed DM) Allergies Allergy/AdvReac Type Severity Reaction Status Date / Time Penicillins Allergy Verified 04/07/23 11:54 Worker's Comp Is this a Worker's Comp case?: No [facility] Disclaimer: The information contained in this section may have been updated after the patient was seen, as this information can be updated by other users. Medical History (Updated 06/09/23 @ 09:30 by Paulette Godoy, NEHEMIAH) Chronic maxillary sinusitis Generalized anxiety disorder Sinus pressure Family History Grandmother Thyroid disorder Coronary artery disease H
[2023-06-09 09:15] LABS: Adenovirus,PCR Not Detected (NotDetected); Coronavirus 19, PCR Not Detected (NotDetected); Coronavirus 229E Not Detected (NotDetected); Coronavirus NL63 Not Detected (NotDetected); Coronavirus OC43 Not Detected (NotDetected); Coronovirus HKU1,PCR Not Detected (NotDetected); Human Metapneumovirus Not Detected (NotDetected); Influenza A, PCR Not Detected (NotDetected); Influenza AH1, 2009 Not Detected (NotDetected); Influenza AH1, PCR Not Detected (NotDetected); Influenza AH3,PCR Not Detected (NotDetected); Influenza B, PCR Not Detected (NotDetected); Parainfluenza 1, PCR Not Detected (NotDetected); Parainfluenza 2, PCR Not Detected (NotDetected); Parainfluenza 3, PCR Not Detected (NotDetected); Parainfluenza 4, PCR Not Detected (NotDetected); Respiratory Syncytial Virus Not Detected (NotDetected)
[2023-06-09 09:24] LABS: UTC Strep Screen (Rapid) Negative (Negative)
[2023-06-09 09:32] VITALS: BP 126/88; PULSE 93; RESP 17; TEMP 36.6; O2SAT 98
[2023-06-09 12:14] LABS: Rhinovirus/Enterovirus Detected (NotDetected)
== END 2023-06-09 09:37 | disposition home or self-care (01) ==
PROVIDERS: Emergency Provider Nurse Practitioner; PCP Nurse Practitioner Family
DX: R05.9 Cough, unspecified (principal); B34.1 Enterovirus infection, unspecified; J06.9 Acute upper respiratory infection, unspecified; R07.0 Pain in throat; R09.81 Nasal congestion
CPT/HCPCS: 87581; 87632; 87635; 87798; 87880; 99212; 99214; G0463

== ENCOUNTER 2023-07-17 17:34 | Emergency (ER) | payer OTHER, SELFPAY ==
[2023-07-17 17:45] VITALS: BP 128/87; PULSE 89; RESP 18; TEMP 37.1; O2SAT 100; BMI 37.5
--- NOTE | 2023-07-17 17:54 | EXP.UTC ---
Discharge Plan Disposition Patient Disposition: Home, Self-Care Condition: Good Prescriptions Prescriptions: New wzopwxlerxwqsxv-dqrrfhddc-XF [Bromfed DM] 2-30-10 mg/5 mL Syrup 5 ml PO Q6H PRN (Reason: Cough) Qty: 240 0RF azithromycin [Zithromax] 250 mg tablet 250 mg PO UD DOSE PK Qty: 6 0RF Rx Instructions: Take two (2) tablets today, then one (1) tablet days #2 thru #5 Referrals Follow up/Referrals: Leena Louis APRN [Primary Care Provider] - See instructions Activity Restrictions/Add. Instructions Additional Instructions/Restrictions: Drink plenty of fluids. Take tylenol or ibuprofen for pain or fever. Take the medications as directed. Follow up with your regular doctor. GO TO THE ER FOR ANY WORSENING SYMPTOMS Clinical Impressions Clinical Impression: Pharyngitis, Acute viral syndrome Stand Alone Forms Stand Alone Forms: Work/School Release Instructions Patient Instructions: DI for Pharyngitis/Tonsillopharyngitis -- Adult, DI for Viral Syndrome Discharge ED Provider: Papa Haley [facility] General Stated complaint: sore throat Time Seen by Provider: 07/17/23 17:54 History of Present Illness Provider Complaint: She states that for the past 2 days she has had sore throat, chills, body aches and low grade fever. Related Data Previous Rx's Medication Instructions Recorded azithromycin 250 mg tablet 250 mg PO UD DOSE PK #6 tabs 07/17/23 (Zithromax) nczujgrhwutlrmo-ihqkzgdviughtsd-OK 5 ml PO Q6H PRN Cough #240 mL 07/17/23 2 mg-30 mg-10 mg/5 mL oral syrup (Bromfed DM) Allergies Allergy/AdvReac Type Severity Reaction Status Date / Time Penicillins Allergy Verified 07/17/23 17:56 [facility] Disclaimer: The information contained in this section may have been updated after the patient was seen, as this information can be updated by other users. Medical History (Updated 07/17/23 @ 18:35 by Papa Haley APRN) Chronic maxillary sinusitis Generalized anxiety disorder Sinus pressure Family History Grandmother Thyroid disorder Coronary artery disease Hypertension Sister Thyroid disorder Social History Smoking Status: Never smoker second hand exposure: No alcohol intake: never substance use type: denies use current occupational status: employed Travel in the last 8 weeks: None adopted: No caregiver/support person: Yes (for her 2 kids) foster care: No household members: family and other details: lives with her 2 daughters; grandmother; they are getting ready to move out housing: house lives independently: No marital status: life partner number of children: 2 number of grandchildren: 0 education level: high school service: No [place] [facility]: No current occupation: works at a daycare current occupational exposures/hazards: No Hx Recent Travel: No sexually active: Yes caffeine: No physical activity: none jose/roman catholic: Adventism special jose needs: No working smoke detector in home: Yes fire extinguisher in home: No carbon monox detector in home: Yes firearms in home: No do you feel safe at home: Yes victim of physical abuse: No victim of emotional abuse: No victim of sexual abuse: No would you like helpful sources: No ROS Obtained: Yes All systems reviewed & no additional complaints except as documented Constitutional Constitutional: Reports chills and Denies fever(s) Eyes Eyes: Denies eye discharge ENT Ears, Nose, Mouth, and Throat: Reports as per HPI Cardiovascular Cardiovascular: Denies chest pain Respiratory Respiratory: Denies chest congestion and Reports cough Gastrointestinal Gastrointestingal: Reports nausea; Denies abdominal pain, constipation, cramping, diarrhea or vomiting Musculoskeletal Musculoskeletal: Denies arthralgias Integumentary/Sylvie
[2023-07-17 17:58] LABS: UTC Strep Screen (Rapid) Negative (Negative)
[2023-07-17 18:48] VITALS: BP 128/87; PULSE 89; RESP 19; TEMP 37.1; O2SAT 100
[2023-07-17 18:48] LABS: Adenovirus,PCR Not Detected (NotDetected); Coronavirus 19, PCR Not Detected (NotDetected); Coronavirus 229E Not Detected (NotDetected); Coronavirus NL63 Not Detected (NotDetected); Coronavirus OC43 Not Detected (NotDetected); Coronovirus HKU1,PCR Not Detected (NotDetected); Human Metapneumovirus Not Detected (NotDetected); Influenza A, PCR Not Detected (NotDetected); Influenza AH1, 2009 Not Detected (NotDetected); Influenza AH1, PCR Not Detected (NotDetected); Influenza AH3,PCR Not Detected (NotDetected); Influenza B, PCR Not Detected (NotDetected); Parainfluenza 1, PCR Not Detected (NotDetected); Parainfluenza 2, PCR Not Detected (NotDetected); Parainfluenza 3, PCR Not Detected (NotDetected); Parainfluenza 4, PCR Not Detected (NotDetected); Respiratory Syncytial Virus Not Detected (NotDetected); Rhinovirus/Enterovirus Not Detected (NotDetected)
== END 2023-07-17 18:48 | disposition home or self-care (01) ==
PROVIDERS: Emergency Provider Nurse Practitioner Family; PCP Nurse Practitioner Family
DX: J02.9 Acute pharyngitis, unspecified (principal); R50.9 Fever, unspecified; R05.9 Cough, unspecified; M79.18 Myalgia, other site
CPT/HCPCS: 87581; 87632; 87635; 87798; 87880; 99212; 99214; G0463

== ENCOUNTER 2023-09-19 16:26 | Emergency (ER) | payer OTHER, SELFPAY ==
--- NOTE | 2023-09-19 17:33 | EXP.UTC ---
Discharge Plan Disposition Patient Disposition: Home, Self-Care Condition: Good Prescriptions Prescriptions: New azithromycin [Zithromax Z-Wil] 250 mg tablet See Rx Instructions .ROUTE .COMPLEX 5 Days Qty: 6 0RF Rx Instructions: For 250 mg dose pack: take 500 mg today (day 1), then 250 mg for 4 days (days 2-5) Referrals Follow up/Referrals: Leena Louis APRN [Primary Care Provider] - See instructions Activity Restrictions/Add. Instructions Additional Instructions/Restrictions: *Monitor Temp, Over the counter Motrin or Tylenol as directed/as needed Tylenol every 4 hours and Motrin every 6 hours (as long as your family doctor has told you that you can take it) for fever or pain. and straight to ER if unable to lower temp less than 101.0 after medication given *Warm salt water gargles may help to soothe the throat *Throat Lozenges? *Warm fluids like tea with honey may help to soothe the throat? *Sleep elevated *Humidifier/Vaporizer Your throat swab was sent for culture. Those results are typically sent to your primary care. Be sure to follow up in 2-3 days with your family doctor/primary care physician if no improvement so they can review those result and treat if necessary. If you don?t have a primary care doctor, I recommend you get one but in the mean time, you will have to return to a walk in clinic Follow up IMMEDIATELY for new or worsening symptoms or no Noticeable improvement over the next 48-72 hours. 911 for difficulty breathing or swallowing Clinical Impressions Clinical Impression: Pharyngitis Instructions Patient Instructions: Sore Throat Discharge ED Provider: Paulette Godoy [facility] [place] [facility] [place] General Stated complaint: sore throat Time Seen by Provider: 09/19/23 17:34 History of Present Illness Provider Complaint: Patient states that she has been having sinus issues for about a week now and for the last couple of days her throat started hurting and feels like it is raw and has blisters in it States it hurts when she swallows and pope Related Data Previous Rx's Medication Instructions Recorded azithromycin 250 mg tablet See Rx Instructions PO .COMPLEX 5 09/19/23 (Zithromax Z-Wil) days #6 tabs Allergies Allergy/AdvReac Type Severity Reaction Status Date / Time Penicillins Allergy Verified 07/17/23 17:56 [facility] Disclaimer: The information contained in this section may have been updated after the patient was seen, as this information can be updated by other users. Medical History (Updated 09/19/23 @ 18:09 by Paulette Godoy APRN) Chronic maxillary sinusitis Generalized anxiety disorder Sinus pressure Family History Grandmother Thyroid disorder Coronary artery disease Hypertension Sister Thyroid disorder Social History Smoking Status: Never smoker second hand exposure: No alcohol intake: never substance use type: denies use current occupational status: employed Travel in the last 8 weeks: None adopted: No caregiver/support person: Yes (for her 2 kids) foster care: No household members: family and other details: lives with her 2 daughters; grandmother; they are getting ready to move out housing: house lives independently: No marital status: life partner number of children: 2 number of grandchildren: 0 education level: high school service: No residential: No current occupation: works at a daycare current occupational exposures/hazards: No Hx Recent Travel: No sexually active: Yes caffeine: No physical activity: none jose/baptist: Druze special jose needs: No working smoke detector in home: Yes fire extinguisher in home: No carbon monox detector in home: Yes firearms in home: No do you feel safe at home: Yes victim of physical abuse: No victim of emotional abuse: No victim of sexual abuse: No would you like helpful sources: No ROS Obtained: Yes All systems reviewed & no additional complaints except as documented and Yes Systems reviewed as appropriate & no additional complaints except as documented Constitutional Constitutional: Reports system reviewed and no additional complaints, except as documented and Reports as per HPI ENT Ears, Nose, Mouth, and Throat: Reports system reviewed and no additional complaints, except as documented, Reports as per HPI, Reports sinus pain, Reports sinus pressure and Reports sore throat Cardiovascular Cardiovascular: Reports system reviewed and no additional complaints, except as documented and Reports as per HPI Respiratory Respiratory: Reports system reviewed and no additional complaints, except as documented and Reports as per HPI Gastrointestinal Gastrointestingal: Reports system reviewed and no additional complaints, except as documented and as per HPI Physical Exam General General appearance: alert and in no apparent distress ENT ENT exam: Present mucous membranes moist Expanded ENT Exam Nose exam: Present sinus tenderness Throat exam: Present other (Pharyngeal erythema noted with PND) Respiratory Respiratory exam: Present normal lung sounds bilaterally; Absent respiratory distress or wheezes Cardiovascular Cardiovascular exam: Present regular rate, normal rhythm and normal heart sounds Neurological Exam Neurological exam: Present alert, oriented X3 and normal gait Medical Decision Making Jef Inquiry Pt receiving controlled substance: No Jef was queried for this patient: No Lab Data Lab results reviewed: Yes I reviewed the patient's lab results.
[2023-09-19 17:40] VITALS: BP 118/69; PULSE 99; RESP 18; TEMP 36.9; O2SAT 98; BMI 34.5
[2023-09-19 18:00] LABS: UTC Strep Screen (Rapid) Negative (Negative)
[2023-09-19 18:01] LABS: UTC Influenza A Antigen Negative (Negative); UTC Influenza B Antigen Negative (Negative)
[2023-09-19 18:10] VITALS: BP 118/69; PULSE 99; RESP 18; TEMP 36.9; O2SAT 98
== END 2023-09-19 18:12 | disposition home or self-care (01) ==
PROVIDERS: Emergency Provider Nurse Practitioner; PCP Nurse Practitioner Family
DX: J02.9 Acute pharyngitis, unspecified (principal); R09.81 Nasal congestion
CPT/HCPCS: 87804; 87880; 99212; 99214; G0463

== ENCOUNTER 2023-12-30 16:05 | Emergency (ER) | payer SELFPAY ==
[2023-12-30 17:00] VITALS: BP 118/77; PULSE 80; RESP 20; TEMP 36.8; O2SAT 100; BMI 36.4
--- NOTE | 2023-12-30 17:31 | EXP.UTC ---
Discharge Plan Disposition Patient Disposition: Home, Self-Care Condition: Good Prescriptions Prescriptions: New Stahist AD 25-60 mg tablet 1 tab PO .6-8 hours MDD 3 tabs per day. Qty: 30 0RF Rx Instructions: No more than 3 tablets a day. Referrals Follow up/Referrals: Leena Louis APRN [Primary Care Provider] - See instructions Clinical Impressions Clinical Impression: Acute frontal sinusitis Qualifiers: Recurrence: non-recurrent Qualified Code(s): J01.10 - Acute frontal sinusitis, unspecified Instructions Patient Instructions: DI for Sinusitis Discharge ED Provider: Vickie Stewart [facility] General Stated complaint: H, sore throat, body aches Mode of Arrival: Ambulatory Source of Information: Patient Limitations: No Limitations Time Seen by Provider: 12/30/23 17:01 Description of Symptoms (Recalled from Triage Doc. by RN): PATIENT C/O HEADACHE, BODY ACHES, SORE THROAT AND NAUSEA THAT STARTED THIS MORNING HEENT Symptoms (Recalled from RN notes): Yes Resp Symptoms (Recalled from RN notes): No Skin Symptoms (Recalled from RN notes): No MS Symptoms (Recalled from RN notes): No Functional Status (Recalled from RN notes): WNL History of Present Illness Provider Complaint: Pt reports that she started having a frontal headache, runny nose, and sore throat this morning along with body aches and nausea. She does not want a strep test as she states that they are always negative. She has not taken anything for her symptoms. Pt reports that she was exposed to Covid, but had a negative Covid test this morning. Related Data Previous Rx's Medication Instructions Recorded chlorcyclizine-pseudoephedrine 25 1 tab PO .6-8 hours sinus symptoms 12/30/23 mg-60 mg tablet (Stahist AD) #30 tabs Allergies Allergy/AdvReac Type Severity Reaction Status Date / Time Penicillins Allergy Verified 07/17/23 17:56 Worker's Comp Is this a Worker's Comp case?: No [facility] Disclaimer: The information contained in this section may have been updated after the patient was seen, as this information can be updated by other users. Medical History (Updated 12/30/23 @ 17:39 by Vickie Stewart APRN) Sinus pressure Chronic maxillary sinusitis Generalized anxiety disorder Surgical History (Updated 12/30/23 @ 17:12 by Nena Qureshi RN) History of tonsillectomy Family History Grandmother Thyroid disorder Coronary artery disease Hypertension Sister Thyroid disorder Social History Smoking Status: Never smoker second hand exposure: No alcohol intake: never substance use type: denies use current occupational status: employed Travel in the last 8 weeks: None adopted: No caregiver/support person: Yes (for her 2 kids) foster care: No household members: family and other details: lives with her 2 daughters; grandmother; they are getting ready to move out housing: house lives independently: No marital status: life partner number of children: 2 number of grandchildren: 0 education level: high school service: No penitentiary: No current occupation: works at a [employer] current occupational exposures/hazards: No Hx Recent Travel: No sexually active: Yes caffeine: No physical activity: none jose/worship: Buddhism special jose needs: No working smoke detector in home: Yes fire extinguisher in home: No carbon monox detector in home: Yes firearms in home: No do you feel safe at home: Yes victim of physical abuse: No victim of emotional abuse: No victim of sexual abuse: No would you like helpful sources: No ROS Obtained: Yes All systems reviewed & no additional complaints except as documented Constitutional Constitutional: Reports system reviewed and no additional complaints, except as documented, Reports body ache, Reports headache(s) and Reports malaise Eyes Eyes: Reports system reviewed and no additional complaints, except as documented ENT Ears, Nose, Mouth, and Throat: Reports system reviewed and no additional complaints, except as documented, Reports headache(s), Reports nasal discharge and Reports sore throat Cardiovascular Cardiovascular: Reports system reviewed and no additional complaints, except as documented Respiratory Respiratory: Reports system reviewed and no additional complaints, except as documented Gastrointestinal Gastrointestingal: Reports system reviewed and no additional complaints, except as documented and nausea Genitourinary Female Genitourinary: Reports system reviewed and no additional complaints, except as documented Musculoskeletal Musculoskeletal: Reports system reviewed and no additional complaints, except as documented Integumentary/Breasts Skin/Breast: Reports system reviewed and no additional complaints, except as documented Neurologic Neurologic: Reports system reviewed and no additional complaints, except as documented and Reports headache(s) Endocrine Endocrine: Reports system reviewed and no additional complaints, except as documented Hematologic/Lymphatic Henatologic/Lymphatic: Reports system reviewed and no additional complaints, except as documented Allergic/Immunologic Allergic/Immunologic: Reports system reviewed and no additional complaints, except as documented Physical Exam General General appearance: alert and in no apparent distress Head Head exam: atraumatic and normocephalic Eye Eye exam: Present normal appearance Expanded ENT Exam External ear exam: Present normal external inspection Nose exam: Present sinus tenderness and other (Frontal sinus) Nasal speculum exam: Bilateral: other (clear drainage) Mouth exam: Present normal external inspection Teeth exam: Present normal inspection Throat exam: Present normal inspection Neck Neck exam: Present normal inspection Chest Chest inspection: Present normal inspection and symmetric chest wall rise Respiratory Respiratory exam: Present normal lung sounds bilaterally Cardiovascular Cardiovascular exam: Present regular rate, normal rhythm and normal heart sounds Abdominal Exam Abdominal exam: Present soft and normal bowel sounds Extremities Exam Extremities exam: Present normal inspection Back Exam Back exam: Present normal inspection Neurological Exam Neurological exam: Present alert and oriented X3 Psychiatric Psychiatric exam: Present normal affect and normal mood Skin Skin exam: Present warm, dry and intact Lymphatic Lymphatic Findings: no adenopathy Medical Decision Making Jef Inquiry Pt receiving controlled substance: No Jef was queried for this patient: No Vital Signs: 12/30/23 17:00 Temperature 98.3 F Temperature Source Oral Pulse Rate [Left Brachial] 80 Respiratory Rate 20 Blood Pressure [Left Arm] 118/77 Blood Pressure Mean [Left Arm] 90 Blood Pressure Source [Left Arm] Automatic Cuff Blood Pressure Position [Left Arm] Sitting 02 Sat by Pulse Oximetry 100 Oxygen Delivery Method Room Air
[2023-12-30 17:50] VITALS: BP 118/77; PULSE 80; RESP 20; TEMP 36.8; O2SAT 100
[2023-12-30 18:17] LABS: UTC Influenza A Antigen Negative (Negative); UTC Influenza B Antigen Negative (Negative)
[2023-12-30 18:33] LABS: Adenovirus,PCR Not Detected (NotDetected); Bordetella Pertussis Not Detected (NotDetected); Chlamydophila Pneumoniae, PCR Not Detected (NotDetected); Coronavirus 19, PCR Not Detected (NotDetected); Coronavirus 229E Not Detected (NotDetected); Coronavirus NL63 Not Detected (NotDetected); Coronavirus OC43 Not Detected (NotDetected); Coronovirus HKU1,PCR Not Detected (NotDetected); Human Metapneumovirus Not Detected (NotDetected); Influenza A, PCR Not Detected (NotDetected); Influenza AH1, 2009 Not Detected (NotDetected); Influenza AH1, PCR Not Detected (NotDetected); Influenza AH3,PCR Not Detected (NotDetected); Influenza B, PCR Not Detected (NotDetected); Mycoplasma Pneumoniae, PCR Not Detected (NotDetected); Parainfluenza 1, PCR Not Detected (NotDetected); Parainfluenza 2, PCR Not Detected (NotDetected); Parainfluenza 3, PCR Not Detected (NotDetected); Parainfluenza 4, PCR Not Detected (NotDetected); Respiratory Syncytial Virus Not Detected (NotDetected)
[2023-12-30 20:31] LABS: Rhinovirus/Enterovirus Detected (NotDetected)
== END 2023-12-30 17:51 | disposition home or self-care (01) ==
PROVIDERS: Emergency Provider Nurse Practitioner Family; PCP Nurse Practitioner Family
DX: J01.10 Acute frontal sinusitis, unspecified (principal); B34.1 Enterovirus infection, unspecified; R51.9 Headache, unspecified; R07.0 Pain in throat; R09.81 Nasal congestion
CPT/HCPCS: 87581; 87632; 87635; 87798; 87804; 99212; 99214; G0463

== ENCOUNTER 2024-02-10 18:09 | Emergency (ER) | payer SELFPAY ==
[2024-02-10 18:25] VITALS: BP 131/76; PULSE 87; RESP 18; TEMP 37.3; O2SAT 99; BMI 35.6
--- NOTE | 2024-02-10 18:47 | ED_ITS ---
Discharge Plan Disposition Patient Disposition: Still a Patient Prescriptions Prescriptions: No Action Stahist AD 25-60 mg tablet 1 tab PO .6-8 hours MDD 3 tabs per day. Qty: 30 0RF Rx Instructions: No more than 3 tablets a day. Referrals Follow up/Referrals: Leena Louis APRN [Primary Care Provider] - See instructions Discharge ED Provider: [place] Dia [facility] General Stated complaint: lower abdominal pain Mode of Arrival: Ambulatory Source of Information: Patient Limitations: No Limitations Time Seen by Provider: 02/10/24 18:47 Description of Symptoms (Recalled from Triage Doc. by RN): PATIENT C/O RLQ PAIN AND TENDERNESS SINCE YESTERDAY MORNING HEENT Symptoms (Recalled from RN notes): No Resp Symptoms (Recalled from RN notes): No Skin Symptoms (Recalled from RN notes): No MS Symptoms (Recalled from RN notes): No Functional Status (Recalled from RN notes): WNL History of Present Illness Provider Complaint: Patient states that she started yesterday with pain and tenderness in her right lower abdomen state that since then pain has continued to get worse so this evening and she was concerned that she may be having appendicitis so she came in to get checked Denies known fever, denies burning with urination Related Data Previous Rx's Medication Instructions Recorded chlorcyclizine-pseudoephedrine 25 1 tab PO .6-8 hours sinus symptoms 12/30/23 mg-60 mg tablet (Stahist AD) #30 tabs Allergies Allergy/AdvReac Type Severity Reaction Status Date / Time Penicillins Allergy Verified 07/17/23 17:56 Worker's Comp Is this a Worker's Comp case?: No [facility] Disclaimer: The information contained in this section may have been updated after the patient was seen, as this information can be updated by other users. Medical History (Updated 12/30/23 @ 17:39 by Vickie Stewart APRN) Sinus pressure Chronic maxillary sinusitis Generalized anxiety disorder Surgical History (Updated 12/30/23 @ 17:12 by Nena Qureshi RN) History of tonsillectomy Family History Grandmother Thyroid disorder Coronary artery disease Hypertension Sister Thyroid disorder Social History Smoking Status: Never smoker second hand exposure: No alcohol intake: never substance use type: denies use current occupational status: employed Travel in the last 8 weeks: None adopted: No caregiver/support person: Yes (for her 2 kids) foster care: No household members: family and other details: lives with her 2 daughters; grandmother; they are getting ready to move out housing: house lives independently: No marital status: life partner number of children: 2 number of grandchildren: 0 education level: high school service: No skilled nursing: No current occupation: works at a [employer] current occupational exposures/hazards: No Hx Recent Travel: No sexually active: Yes caffeine: No physical activity: none jose/hindu: Nondenominational special jose needs: No working smoke detector in home: Yes fire extinguisher in home: No carbon monox detector in home: Yes firearms in home: No do you feel safe at home: Yes victim of physical abuse: No victim of emotional abuse: No victim of sexual abuse: No would you like helpful sources: No ROS Obtained: Yes All systems reviewed & no additional complaints except as documented and Yes Systems reviewed as appropriate & no additional complaints except as documented Constitutional Constitutional: Reports system reviewed and no additional complaints, except as documented and Reports as per HPI Eyes Eyes: Reports system reviewed and no additional complaints, except as documented and Reports as per HPI ENT Ears, Nose, Mouth, and Throat: Reports system reviewed and no additional complaints, except as documented and Reports as per HPI Cardiovascular Cardiovascular: Reports system reviewed and no additional complaints, except as documented and Reports as per HPI Respiratory Respiratory: Reports system reviewed and no additional complaints, except as documented and Reports as per HPI Gastrointestinal Gastrointestingal: Reports system reviewed and no additional complaints, except as documented, as per HPI and abdominal pain (right lower ) Genitourinary Female Genitourinary: Reports system reviewed and no additional complaints, except as documented, Reports as per HPI, Denies urinary frequency and Denies urinary urgency Musculoskeletal Musculoskeletal: Reports system reviewed and no additional complaints, except as documented and Reports as per HPI Physical Exam General General appearance: alert and in no apparent distress ENT ENT exam: Present mucous membranes moist Respiratory Respiratory exam: Present normal lung sounds bilaterally; Absent respiratory distress or wheezes Cardiovascular Cardiovascular exam: Present regular rate, normal rhythm and normal heart sounds Abdominal Exam Abdominal exam: Present soft, tenderness (reports tenderness with palpation right lower quad) and normal bowel sounds; Absent distention Neurological Exam Neurological exam: Present alert, oriented X3 and normal gait Medical Decision Making Jef Inquiry Pt receiving controlled substance: No Jef was queried for this patient: No Vital Signs: 02/10/24 18:25 Temperature 99.1 F Temperature Source Oral Pulse Rate [Left Brachial] 87 Respiratory Rate 18 Blood Pressure [Left Arm] 131/76 Blood Pressure Mean [Left Arm] 94 Blood Pressure Source [Left Arm] Automatic Cuff Blood Pressure Position [Left Arm] Sitting 02 Sat by Pulse Oximetry 99 Oxygen Delivery Method Room Air Lab Data Lab results reviewed: Yes I reviewed the patient's lab results. Medical Decision Narrative: Patient states that she started having pain in her right lower abdomen yesterday and it has continued get worse and tender to the touch States that she was worried that she may be having appendicitis or something so she came in to get checked Discussed with patient and Urine dip and was done in the UTC and negative, discussed with patient about transfer to the ED for furhter work up and evaluation and she agreed Called ED and patient was moved to room 10
[2024-02-10 18:48] LABS: Apearance,Urine Cloudy (Clear); Bilirubin,Urine Negative (Negative); Blood, Urine Negative (Negative); Color,Urine Yellow (Yellow); Glucose,Urine (UA) Negative (Negative); Ketones,Urine Negative (Negative); PH,Urine 6.5 (5.0-8.5); Protein,Urine Negative (Negative); Specific Gravity, Urine 1.025 (1.005-1.030); UTC Leukocyte Esterase,Urine Negative (Negative); UTC Nitrate,Urine Negative (Negative); UTC Pregnancy Test, Urine Negative (Negative); Urobilinogen,Urine 0.2 EU/dl (0.2)
[2024-02-10 19:05] VITALS: BP 121/78; PULSE 72; RESP 16; TEMP 37.2; O2SAT 100; BMI 35.5
[2024-02-10 19:09] VITALS: BP 121/78; PULSE 72; RESP 16; TEMP 37.2; O2SAT 100; BMI 35.5
[2024-02-10 19:15] LABS: Microscopic, Urine URINE MICROSCOPIC (MICROSCOPIC)
--- NOTE | 2024-02-10 20:07 | PC.NURSE ---
Patient decided she does not want the medication and she is going to be signing out AMA
--- NOTE | 2024-02-10 20:09 | PC.NURSE ---
Patient walked to nurses station and states that she would like to leave the ER due to not being about to stay any longer for child adolescent psychiatrist issues. Offered patient medication that has been ordered, to which patient refused. Patient signed AMA paperwork and left ER ambulatory
[2024-02-10 20:12] VITALS: BP 127/72; PULSE 84; RESP 19; TEMP 36.8; O2SAT 98
[2024-02-10 20:21] LABS: Appearance,Urine CLEAR (Clear); Bilirubin,Urine Negative (Negative); Blood, Urine Negative (Negative); Color,Urine YELLOW (Yellow); Glucose,Urine (UA) Negative (Negative); Ketones,Urine Negative (Negative); Leukocyte Esterase,Urine Negative (Negative); Nitrate,Urine Negative (Negative); PH,Urine 6.5 (5.0-8.5); Protein,Urine Negative (Negative); Specific Gravity, Urine 1.025 (1.005-1.030); Urobilinogen,Urine 0.2 EU/dl (0.2)
[2024-02-10 20:39] LABS: Bacteria,Urine 1+ /lpf; Squamous Epithelial Cell,Urine 20-50 #/hpf (0-5)
--- NOTE | 2024-02-10 22:22 | HMH.EDGENADL ---
Discharge Plan Disposition Patient Disposition: Left Against Medical Advice Prescriptions Prescriptions: No Action Stahist AD 25-60 mg tablet 1 tab PO .6-8 hours MDD 3 tabs per day. Qty: 30 0RF Rx Instructions: No more than 3 tablets a day. Referrals Follow up/Referrals: Leena Louis APRN [Primary Care Provider] - See instructions Clinical Impressions Clinical Impression: Left lower quadrant abdominal pain Discharge ED Provider: Grant Dia General Adult HPI General Chief complaint: Abdominal Pain Stated complaint: lower abdominal pain Time Seen by Provider: 02/10/24 18:47 Mode of Arrival: Ambulatory Source of Information: Patient Limitations: No Limitations Description of Symptoms (Recalled from ER Triage Doc. by RN): pain in RLQ that started yesterday morning History of Present Illness HPI narrative: Patient is a previously healthy 23-year-old who presents emergency department for evaluation of right lower quadrant abdominal pain. Onset was acute, occurring over the last day. Due to persistent symptoms she presents here for continued evaluation. Related Data Previous Rx's Medication Instructions Recorded chlorcyclizine-pseudoephedrine 25 1 tab PO .6-8 hours sinus symptoms 12/30/23 mg-60 mg tablet (Stahist AD) #30 tabs Allergies Allergy/AdvReac Type Severity Reaction Status Date / Time Penicillins Allergy Verified 07/17/23 17:56 [facility] Disclaimer: The information contained in this section may have been updated after the patient was seen, as this information can be updated by other users. Medical History (Updated 02/10/24 @ 22:27 by Grant Dia MD) Sinus pressure Chronic maxillary sinusitis Generalized anxiety disorder Surgical History (Updated 12/30/23 @ 17:12 by Nena Qureshi RN) History of tonsillectomy Family History Grandmother Thyroid disorder Coronary artery disease Hypertension Sister Thyroid disorder Social History Smoking Status: Never smoker second hand exposure: No alcohol intake: never substance use type: denies use current occupational status: employed Travel in the last 8 weeks: None adopted: No caregiver/support person: Yes (for her 2 kids) foster care: No household members: family and other details: lives with her 2 daughters; grandmother; they are getting ready to move out housing: house lives independently: No marital status: life partner number of children: 2 number of grandchildren: 0 education level: high school service: No detention: No current occupation: works at a daycare current occupational exposures/hazards: No Hx Recent Travel: No sexually active: Yes caffeine: No physical activity: none jose/jain: Scientologist special jose needs: No working smoke detector in home: Yes fire extinguisher in home: No carbon monox detector in home: Yes firearms in home: No do you feel safe at home: Yes victim of physical abuse: No victim of emotional abuse: No victim of sexual abuse: No would you like helpful sources: No ROS Obtained: Yes Systems reviewed as appropriate & no additional complaints except as documented Physical Exam General General appearance: alert and in no apparent distress Head Head exam: atraumatic and normocephalic Eye Eye exam: Present PERRL ENT ENT exam: Present mucous membranes moist Neck Neck exam: Present normal inspection Chest Chest inspection: Present normal inspection and symmetric chest wall rise Respiratory Respiratory exam: Absent respiratory distress Cardiovascular Cardiovascular exam: Present regular rate and normal rhythm Abdominal Exam Abdominal exam: Present soft and tenderness (Right lower quadrant) Extremities Exam Extremities exam: Present normal inspection Neurological Exam Neurological exam: Present alert Psychiatric Psychiatric exam: Present normal affect Skin Skin exam: Present warm and dry Medical Decision Making Jef Inquiry Pt receiving controlled substance: No Vital Signs: 02/10/24 18:25 02/10/24 19:05 02/10/24 19:09 Temperature 99.1 F 98.9 F 98.9 F Temperature Source Oral Oral Oral Pulse Rate Pulse Rate [Left Brachial] 87 72 72 Respiratory Rate 18 16 16 Blood Pressure Blood Pressure [Left Arm] 131/76 121/78 121/78 Blood Pressure Mean [Left Arm] 94 92 92 Blood Pressure Source Blood Pressure Source [Left Arm] Automatic Cuff Blood Pressure Position Blood Pressure Position [Left Arm] Sitting 02 Sat by Pulse Oximetry 99 100 100 Oxygen Delivery Method Room Air Room Air Room Air 02/10/24 20:12 Temperature 98.2 F Temperature Source Oral Pulse Rate 84 Pulse Rate [Left Brachial] Respiratory Rate 19 Blood Pressure 127/72 Blood Pressure [Left Arm] Blood Pressure Mean [Left Arm] Blood Pressure Source Automatic Cuff Blood Pressure Source [Left Arm] Blood Pressure Position Sitting Blood Pressure Position [Left Arm] 02 Sat by Pulse Oximetry Oxygen Delivery Method Room Air Lab Data Lab Results 02/10/24 18:31: Urine Color Yellow, Urine Appearance Clear, Urine pH 6.5, Ur Specific [place] 1.025, Urine Protein Negative, Urine Glucose (UA) Negative, Urine Ketones Negative, Urine Blood Negative, Urine Nitrate Negative, Urine Bilirubin Negative, Urine Urobilinogen 0.2, Ur Leukocyte Esterase Negative, Urine WBC 3-5, Ur Squamous Epith Cells 20-50, Urine Bacteria 1+ 02/10/24 18:48: Urine Color Yellow, Urine Appearance Cloudy, Urine pH 6.5, Ur Specific [place] 1.025, Urine Protein Negative, Urine Glucose (UA) Negative, Urine Ketones Negative, Urine Blood Negative, Urine Nitrate Negative, Urine Bilirubin Negative, Urine Urobilinogen 0.2, Ur Leukocyte Esterase Negative, Tst Clinic Negative Orders (Tests/Meds): ED MEDICATIONS Discontinued Medications Generic Name Dose Route Start Last Admin Trade Name Freq PRN Reason Stop Dose Admin Acetaminophen 1,000 mg 02/10/24 19:01 Acetaminophen 1,000mg/100ml Vial IV 02/10/24 19:02 ONCE ONE Lactated Ringer's 1,000 mls @ 999 mls/hr 02/10/24 19:01 Lactated Ringer's 1000 Ml Bag IV 02/10/24 20:01 .Q1H1M ONE Ketorolac Tromethamine 30 mg 02/10/24 19:01 Ketorolac 30mg/Ml Vial IV 02/10/24 19:02 ONCE ONE Ondansetron HCl 4 mg 02/10/24 19:01 Ondansetron 4mg/2ml Vial IV 02/10/24 19:02 ONCE ONE ORDERS Category Date Time Status UA [Urinalysis and Microscopic] Stat Lab 02/10/24 18:31 Completed Medical Decision Narrative: In summary patient is a 23-year-old female past medical history described above presents emergency department for evaluation of right lower quadrant abdominal pain. Patient is hemodynamically stable nontoxic-appearing upon arrival, afebrile. Differential diagnosis includes appendicitis, urinary tract infection, among others. Workup will be conducted with hematologic labs, urinalysis, CT abdomen pelvis IV contrast. Initial inventions include multimodal pain control. Unfortunately prior to obtaining labs and CT imaging patient signed out AGAINST MEDICAL ADVICE with nursing. Urinalysis reviewed by me after the fact, not consistent with infection, hCG negative. Critical Care Critical Care Time Critical Care Time: No
== END 2024-02-10 20:11 | disposition left against medical advice (07) ==
PROVIDERS: Nurse Practitioner; Emergency Provider Emergency Medicine; PCP Nurse Practitioner Family
DX: R10.31 Right lower quadrant pain (principal)
CPT/HCPCS: 81001; 81003; 81025; 96361; 96374; 96375; 99284; J0131; J1885; J2405; J7120

== ENCOUNTER 2024-02-20 10:11 | Emergency (ER) | payer SELFPAY ==
[2024-02-20 10:25] VITALS: BP 148/85; PULSE 95; RESP 16; TEMP 36.9; O2SAT 99; BMI 35.5
--- NOTE | 2024-02-20 10:35 | ED_ITS ---
Discharge Plan Disposition Patient Disposition: Home, Self-Care Condition: Good Prescriptions Prescriptions: New ynqmfcidmiqsayl-ydmshnjkh-XP [Bromfed DM] 2-30-10 mg/5 mL syrup 10 ml PO Q6H PRN (Reason: cold symptoms) Qty: 200 0RF azithromycin [Zithromax Z-Wil] 250 mg tablet See Rx Instructions .ROUTE .COMPLEX 5 Days Qty: 6 0RF Rx Instructions: For 250 mg dose pack: take 500 mg today (day 1), then 250 mg for 4 days (days 2-5) No Action Stahist AD 25-60 mg tablet 1 tab PO .6-8 hours MDD 3 tabs per day. Qty: 30 0RF Rx Instructions: No more than 3 tablets a day. Referrals Follow up/Referrals: Leena Louis APRN [Primary Care Provider] - See instructions Activity Restrictions/Add. Instructions Additional Instructions/Restrictions: *Monitor Temp, Over the counter Motrin or Tylenol as directed/as needed Tylenol every 4 hours and Motrin every 6 hours (as long as your family doctor has told you that you can take it) for fever or pain. and straight to ER if unable to lower temp less than 101.0 after medication given *Warm salt water gargles may help to soothe the throat *Throat Lozenges? *Warm fluids like tea with honey may help to soothe the throat? *Sleep elevated *Humidifier/Vaporizer Bromfed may cause drowsiness. Know how it effects you (your child) before driving, caring for small child, or sending your child to school. Not other antihistamines/allergy medications while taking bromfed Follow up IMMEDIATELY for new or worsening symptoms or no Noticeable improvement over the next 48-72 hours. 911 for difficulty breathing or swallowing You were tested for today for COVID19 your test result should be back in the next few hours, you may Check your Results on the [facility] My Health Clinical Impressions Clinical Impression: Upper respiratory infection Stand Alone Forms Stand Alone Forms: Work/School Release Instructions Patient Instructions: Cough, DI for Nasal Congestion Print Language Print Language: Faroese Discharge ED Provider: Paulette Godoy [facility] HPI General Stated complaint: body aches, cough, congestion, SOA, headache Mode of Arrival: Ambulatory Source of Information: Patient Limitations: No Limitations Time Seen by Provider: 02/20/24 10:36 Description of Symptoms (Recalled from Triage Doc. by RN): Patient reports body aches, cough, shortness of breath, and back pain since yesterday morning. HEENT Symptoms (Recalled from RN notes): Yes Resp Symptoms (Recalled from RN notes): No Skin Symptoms (Recalled from RN notes): No MS Symptoms (Recalled from RN notes): No Functional Status (Recalled from RN notes): wnl History of Present Illness Provider Complaint: Patient states that her daughter was sick with something a couple days ago and now she isnt feeling well States that she has been having body aches, chills, nasal congestion, cough and over all not feeling well states that at times she feels a little SOA and had fever this morning Related Data Previous Rx's ?Medication ?Instructions ?Recorded chlorcyclizine-pseudoephedrine 25 1 tab PO .6-8 hours sinus symptoms 12/30/23 mg-60 mg tablet (Stahist AD) #30 tabs azithromycin 250 mg tablet See Rx Instructions PO .COMPLEX 5 02/20/24 (Zithromax Z-Wil) days #6 tabs dfomnjejcmnrijn-fyqjwyopsihaxjy-TC 10 ml PO Q6H PRN cold symptoms 02/20/24 2 mg-30 mg-10 mg/5 mL oral syrup #200 mL (Bromfed DM) Allergies Allergy/AdvReac Type Severity Reaction Status Date / Time Penicillins Allergy Verified 07/17/23 17:56 Worker's Comp Is this a Worker's Comp case?: No [facility] Disclaimer: The information contained in this section may have been updated after the patient was seen, as this information can be updated by other users. Medical History (Updated 02/20/24 @ 17:49 by Paulette Godoy APRN) Sinus pressure Chronic maxillary sinusitis Generalized anxiety disorder Surgical History (Updated 12/30/23 @ 17:12 by Nena Qureshi RN) History of tonsillectomy Family History Grandmother Thyroid disorder Coronary artery disease Hypertension Sister Thyroid disorder Social History Smoking Status: Never smoker second hand exposure: No alcohol intake: never substance use type: denies use current occupational status: employed Travel in the last 8 weeks: None adopted: No caregiver/support person: Yes (for her 2 kids) foster care: No household members: family and other details: lives with her 2 daughters; grandmother; they are getting ready to move out housing: house lives independently: No marital status: life partner number of children: 2 number of grandchildren: 0 education level: high school service: No longterm: No current occupation: works at a [employer] current occupational exposures/hazards: No Hx Recent Travel: No sexually active: Yes caffeine: No physical activity: none jose/restorationism: Judaism special jose needs: No working smoke detector in home: Yes fire extinguisher in home: No carbon monox detector in home: Yes firearms in home: No do you feel safe at home: Yes victim of physical abuse: No victim of emotional abuse: No victim of sexual abuse: No would you like helpful sources: No ROS Obtained: Yes All systems reviewed & no additional complaints except as documented and Yes Systems reviewed as appropriate & no additional complaints except as documented Constitutional Constitutional: Reports system reviewed and no additional complaints, except as documented, Reports as per HPI, Reports body ache, Reports chills, Reports fatigue, Reports fever(s) and Reports headache(s) ENT Ears, Nose, Mouth, and Throat: Reports system reviewed and no additional complaints, except as documented, Reports as per HPI, Reports headache(s), Reports nasal congestion and Reports nasal discharge Cardiovascular Cardiovascular: Reports system reviewed and no additional complaints, except as documented and Reports as per HPI Respiratory Respiratory: Reports system reviewed and no additional complaints, except as documented, Reports as per HPI, Reports shortness of breath (at times) and Reports cough Gastrointestinal Gastrointestingal: Reports system reviewed and no additional complaints, except as documented and as per HPI Neurologic Neurologic: Reports headache(s) Endocrine Endocrine: Reports fatigue Physical Exam General General appearance: alert and in no apparent distress ENT ENT exam: Present mucous membranes moist Expanded ENT Exam Nose exam: Present sinus tenderness Throat exam: Present other (PND noted) Respiratory Respiratory exam: Present normal lung sounds bilaterally; Absent respiratory distress or wheezes Cardiovascular Cardiovascular exam: Present regular rate, normal rhythm and normal heart sounds Abdominal Exam Abdominal exam: Present soft and normal bowel sounds; Absent distention or tenderness Neurological Exam Neurological exam: Present alert, oriented X3 and normal gait Medical Decision Making Jef Inquiry Pt receiving controlled substance: No Jef was queried for this patient: No Vital Signs: 02/20/24 10:25 Temperature 98.5 F Temperature Source Oral Pulse Rate [Radial] 95 H Respiratory Rate 16 Blood Pressure [Right Arm] 148/85 H Blood Pressure Mean [Right Arm] 106 Blood Pressure Source [Right Arm] Automatic Cuff Blood Pressure Position [Right Arm] Sitting 02 Sat by Pulse Oximetry 99 Oxygen Delivery Method Room Air Orders (Tests/Meds): ORDERS Category Date Time Status Rapid PCR Covid and Flu A/B Stat Lab 02/20/24 10:27 Ordered
[2024-02-20 10:59] VITALS: BP 148/85; PULSE 95; RESP 16; TEMP 36.9; O2SAT 99
[2024-02-20 11:18] LABS: Coronavirus 19, PCR Not Detected (NotDetected); Influenza A, PCR Not Detected (NotDetected); Influenza B, PCR Not Detected (NotDetected)
== END 2024-02-20 11:00 | disposition home or self-care (01) ==
PROVIDERS: Emergency Provider Nurse Practitioner; PCP Nurse Practitioner Family
DX: R05.9 Cough, unspecified (principal); R50.9 Fever, unspecified; J06.9 Acute upper respiratory infection, unspecified
CPT/HCPCS: 87636; 99212; 99214; G0463

== ENCOUNTER 2024-06-11 09:21 | Emergency (ER) | payer SELFPAY ==
[2024-06-11 09:35] VITALS: BP 129/75; PULSE 84; RESP 18; TEMP 37; O2SAT 96; BMI 36.6
--- NOTE | 2024-06-11 09:38 | EXP.UTC ---
Discharge Plan Disposition Patient Disposition: Home, Self-Care Condition: Good Prescriptions Prescriptions: New pseudoephedrine HCl [Sudafed 12 Hour] 120 mg tablet extended release 120 mg PO Q12H PRN (Reason: nasal congestion) Qty: 20 0RF Referrals Follow up/Referrals: Leena Louis APRN [Primary Care Provider] - See instructions Activity Restrictions/Add. Instructions Additional Instructions/Restrictions: *Monitor Temp, Over the counter Motrin or Tylenol as directed/as needed Tylenol every 4 hours and Motrin every 6 hours (as long as your family doctor has told you that you can take it) for fever or pain. and straight to ER if unable to lower temp less than 101.0 after medication given *Warm salt water gargles may help to soothe the throat *Throat Lozenges? *Warm fluids like tea with honey may help to soothe the throat? *Sleep elevated *Humidifier/Vaporizer Your throat swab was sent for culture. Those results are typically sent to your primary care. Be sure to follow up in 2-3 days with your family doctor/primary care physician if no improvement so they can review those result and treat if necessary. If you don?t have a primary care doctor, I recommend you get one but in the mean time, you will have to return to a walk in clinic Follow up IMMEDIATELY for new or worsening symptoms or no Noticeable improvement over the next 48-72 hours. 911 for difficulty breathing or swallowing Clinical Impressions Clinical Impression: Viral upper respiratory infection Stand Alone Forms Stand Alone Forms: Work/School Release Instructions Patient Instructions: DI for Viral Upper Respiratory Infection -- Adult, Sore Throat Print Language Print Language: Togolese Discharge ED Provider: Paulette Godoy [facility] [place] HPI General Stated complaint: sore throat, headache, bodyaches, fever, chills Mode of Arrival: Ambulatory Source of Information: Patient Time Seen by Provider: 06/11/24 09:38 Description of Symptoms (Recalled from Triage Doc. 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 States that she has been having sinus congestion, drainage, sore throat, body aches and feels like she may be losing her voice so she came in to get checked Related Data Previous Rx's ?Medication ?Instructions ?Recorded pseudoephedrine HCl 120 mg 120 mg PO Q12H PRN nasal 06/11/24 tablet,extended release (Sudafed congestion #20 tabs 12 Hour) Allergies Allergy/AdvReac Type Severity Reaction Status Date / Time Penicillins Allergy Verified 07/17/23 17:56 Worker's Comp Is this a Worker's Comp case?: No [facility] Disclaimer: The information contained in this section may have been updated after the patient was seen, as this information can be updated by other users. Medical History (Updated 06/11/24 @ 09:51 by Paulette Godoy APRN) Sinus pressure Chronic maxillary sinusitis Generalized anxiety disorder Surgical History (Updated 12/30/23 @ 17:12 by Nena Qureshi RN) History of tonsillectomy Family History Grandmother Thyroid disorder Coronary artery disease Hypertension Sister Thyroid disorder Social History Smoking Status: Never smoker second hand exposure: No alcohol intake: never substance use type: denies use current occupational status: employed Travel in the last 8 weeks: None adopted: No caregiver/support person: Yes (for her 2 kids) foster care: No household members: family and other details: lives with her 2 daughters; grandmother; they are getting ready to move out housing: house lives independently: No marital status: life partner number of children: 2 number of grandchildren: 0 education level: high school service: No fci: No current occupation: works at a daycare current occupational exposures/hazards: No Hx Recent Travel: No sexually active: Yes caffeine: No physical activity: none jose/hoahaoism: Anabaptism special jose needs: No working smoke detector in home: Yes fire extinguisher in home: No carbon monox detector in home: Yes firearms in home: No do you feel safe at home: Yes victim of physical abuse: No victim of emotional abuse: No victim of sexual abuse: No would you like helpful sources: No ROS Obtained: Yes All systems reviewed & no additional complaints except as documented and Yes Systems reviewed as appropriate & no additional complaints except as documented Constitutional Constitutional: Reports system reviewed and no additional complaints, except as documented, Reports as per HPI, Reports body ache, Reports chills and Reports headache(s) ENT Ears, Nose, Mouth, and Throat: Reports system reviewed and no additional complaints, except as documented, Reports as per HPI, Reports headache(s), Reports nasal congestion, Reports nasal discharge and Reports sore throat Cardiovascular Cardiovascular: Reports system reviewed and no additional complaints, except as documented and Reports as per HPI Respiratory Respiratory: Reports system reviewed and no additional complaints, except as documented, Reports as per HPI and Reports cough Gastrointestinal Gastrointestingal: Reports system reviewed and no additional complaints, except as documented and as per HPI Neurologic Neurologic: Reports headache(s) Physical Exam General General appearance: alert and in no apparent distress ENT ENT exam: Present mucous membranes moist and TM's normal bilaterally Expanded ENT Exam Nose exam: Absent sinus tenderness Throat exam: Present other (Pharyngeal erythema noted with PND) Respiratory Respiratory exam: Present normal lung sounds bilaterally; Absent respiratory distress or wheezes Cardiovascular Cardiovascular exam: Present regular rate, normal rhythm and normal heart sounds Abdominal Exam Abdominal exam: Present soft and normal bowel sounds; Absent distention or tenderness Neurological Exam Neurological exam: Present alert, oriented X3 and normal gait Medical Decision Making Medical Records Screening: Per USPSTF and CDC recommendations, given the prevalence of disease in our region, it is our hospital?s policy to screen for HIV and viral Hepatitis for all patients aged 18 and over and those with ongoing risk factors. Jef Inquiry Pt receiving controlled substance: No Jef was queried for this patient: No Vital Signs: 06/11/24 09:35 Temperature 98.6 F Temperature Source Oral Pulse Rate [Left Radial] 84 Respiratory Rate 18 Blood Pressure [Left Arm] 129/75 Blood Pressure Mean [Left Arm] 93 02 Sat by Pulse Oximetry 96 Lab Data Lab results reviewed: Yes I reviewed the patient's lab results. Medical Decision Narrative: Denies
[2024-06-11 09:52] LABS: UTC Influenza A Antigen Negative (Negative); UTC Influenza B Antigen Negative (Negative); UTC Strep Screen (Rapid) Negative (Negative)
[2024-06-11 09:53] VITALS: BP 129/75; PULSE 84; RESP 18; TEMP 37
== END 2024-06-11 09:56 | disposition home or self-care (01) ==
PROVIDERS: Emergency Provider Nurse Practitioner; PCP Nurse Practitioner Family
DX: J06.9 Acute upper respiratory infection, unspecified (principal)
CPT/HCPCS: 87804; 87880; 99213; G0381

== ENCOUNTER 2024-11-10 10:12 | Outpatient (CLI) | payer OTHER, SELFPAY ==
--- NOTE | 2024-11-10 10:16 | XR_ITS ---
FINAL REPORT CLINICAL HISTORY: cough, fever COMPARISON: 01/28/2023 FINDINGS: PA and lateral views of the chest were obtained. The cardiac and mediastinal silhouettes are within normal limits. The lungs are clear. There is no pleural effusion or pneumothorax. No acute osseous abnormality is identified. IMPRESSION: No radiographic evidence of acute cardiac or pulmonary disease. Reviewed, Interpreted and Dictated by Radha Ortega MD Transcribed by Polly Reynolds Authenticated and [facility]
[2024-11-10 15:20] LABS: Coronavirus 19, PCR Not Detected (NotDetected); Human Rhinovirus Not Detected (NotDetected); Influenza A, PCR Not Detected (NotDetected); Influenza B, PCR Not Detected (NotDetected); Respiratory Syncytial Virus Not Detected (NotDetected)
== END 2024-11-10 23:59 | disposition home or self-care (01) ==
LOC: RAD 10:13
PROVIDERS: PCP Nurse Practitioner Family; Visit Provider Student in an Organized Health Care Education/Training Program
DX: R05.9 Cough, unspecified (principal); R50.9 Fever, unspecified
CPT/HCPCS: 71046; 87631

== ENCOUNTER 2024-12-10 19:16 | Outpatient (CLI) | payer OTHER, SELFPAY ==
[2024-12-10 22:14] LABS: Coronavirus 19, PCR Not Detected (NotDetected); Human Rhinovirus Not Detected (NotDetected); Influenza A, PCR Not Detected (NotDetected); Influenza B, PCR Not Detected (NotDetected); Respiratory Syncytial Virus Not Detected (NotDetected)
== END 2024-12-10 23:59 | disposition home or self-care (01) ==
LOC: LAB.DROPOF 12-11 11:25
PROVIDERS: PCP Nurse Practitioner; Visit Provider Nurse Practitioner
DX: J02.9 Acute pharyngitis, unspecified (principal)
CPT/HCPCS: 87631

== ENCOUNTER → 2025-03-23 13:55 | Outpatient (REF) | payer SELFPAY ==
--- OUTSIDE RECORDS SUMMARY | 2025-02-04 06:00 | XMS_ITS ---
Author Organization [facility] Address [address] [place] [address] Care Team Providers Care Newscast Producer Name Role Phone Rufina Chavez Unavailable [phone] Sahra Ferrara Unavailable [phone] REASON FOR VISIT 24 wks 11:30 Medications Medication SIG (Take, Route, Frequency, Duration) Notes Start Date End Date Status Zofran Active Ondansetron 8 MG Tablet Disintegrating 1 tablet on the tongue and allow to dissolve as needed Orally every 8 hours as needed 11/13/2024 Active Scopolamine 1 MG/3DAYS Patch 72 Hour 1 patch to skin behind the ear as needed Transdermal every third day; Duration: 30 days 01/07/2025 Active Active Promethazine HCl 25 MG Tablet 1 tablet as needed Orally every 8 hours for nausea 11/13/2024 Active Social History Sex Assigned At : Social History Observation Description Sex Assigned At Female Vital Signs Weight 225.6 lbs 02/04/2025 BMI 35.334 kg/m2 02/04/2025 Encounters Encounter Location Date Provider Diagnosis [facility] [address] [place] [address] 02/04/2025 Sahra Ferrara 24 weeks gestation of Z3A.24 and Supervision of other normal , third trimester Z34.83 Assessments Encounter Date Diagnosis (ICD Code) Assessment Notes Treatment Notes Treatment Clinical Notes Section Notes 02/04/2025 24 weeks gestation of (ICD-10 - Z3A.24) 02/04/2025 Supervision of other normal , third trimester (ICD-10 - Z34.83) Plan Of Treatment Next Appt Details Follow Up: 4 Weeks, Reason: Provider Name:Rufina Chavez, 04/15/2025 08:00:00 AM, [address], [place], [address], Provider Name:Rufina Chavez, 04/15/2025 08:45:00 AM, [address], [place], [address], Provider Name:Rufina Chavez, 04/29/2025 09:15:00 AM, [address], [address], [place], [address], Provider Name:Rufina Chavez, 05/06/2025 09:15:00 AM, [address], [address], [place], [address], Provider Name:Rufina Chavez, 05/13/2025 09:00:00 AM, [address], [address], [place], [address], Provider Name:Leena Barone, 05/20/2025 09:00:00 AM, [address], [address], [place], [address], Provider Name:Rufina Chavez, 05/24/2025 12:00:00 AM, [address], [place], [address], Provider Name:Rufina Chavez, 07/07/2025 11:15:00 AM, [address], [address], [place], [address], Progress Notes * Flip LIZOB: 000 (24 yo F)Acc No.[id number]:02/04/2025 Progress Note Patient: Gabrielle Torres Provider: Arturo Ferrara APRN :2000 A ge:24 Y S ex:Female Date:02/04/2025 Address:[address], [id number] Subjective: * Chief Complaints: * 2 4 wks 11:30 * Security Flex Utility Officer History: M enstrual History: L MP: 0 08/19/2024 S exual Activity/Contraception: E devin been sexually active? Y es C ontraception: N one * OB History: P regnancy History (GPA) Total Pregnancies 2 Full Term 2 Living 2 P regnancy # 1: , female, normal spontaneous vaginal delivery (). P regnancy # 2: , female, normal spontaneous vaginal delivery (). * Medications: T akingOndansetron 8 MG Tablet Disintegrating 1 tablet on the tongue and allow to dissolve as needed Orally every 8 hours as needed ( MV-Min-Fe Fum-FA-DHA) Promethazine HCl 25 MG Tablet 1 tablet as needed Orally every 8 hours for nausea Scopolamine 1 MG/3DAYS Patch 72 Hour 1 patch to skin behind the ear as needed Transdermal every third day Zofran Taking Ondansetron 8 MG Tablet Disintegrating 1 tablet on the tongue and allow to dissolve as needed Orally every 8 hours as needed Taking ( MV-Min-Fe Fum-FA-DHA) Taking Promethazine HCl 25 MG Tablet 1 tablet as needed Orally every 8 hours for nausea Taking Scopolamine 1 MG/3DAYS Patch 72 Hour 1 patch to skin behind the ear as needed Transdermal every third day Taking Zofran Objective: * Vitals: W t: 225.6 lbs, BMI: 35.334 Index. Assessment: * Assessment: 1. 2 4 weeks gestation of - Z3A.24 (Primary) 2 . S upervision of other normal , third trimester - Z34.83 Plan: * Treatment: * Procedure Codes: r ob Return OB [id number] HEDIS SUBSEQUENT CARE * Follow Up: 4 Weeks Billing Information: * Procedure Codes: della Return OB Visit. [id number] HEDIS SUBSEQUENT CARE. * Sign off status: Completed Visit Status: A RR (Check-In) true * Provider: Arutro Ferrara APRN Date: 0 02/04/2025 Generated for Becky poolAlbina/Alexander on: 0 03/23/2025 01:59 PM EDT
--- OUTSIDE RECORDS SUMMARY | 2025-02-04 10:45 | XMS_ITS | Encounter Summary ---
[facility] Organization [facility] Address [address] [place] [address] Care Team Providers Care Automated Cutting Machine Operator Name Role Phone Provider, No Known Primary Care Provider Unavail able Encounter Details Date Type Department Care Team (Late st Contact Info) Description 02/04/2025 10:45 AM EDT Lab [facility] [address] [place] [address] care, subsequent , second trimester Social History Tobacco Use Types Packs/Day Years Used Date Smoking Tobacco: Never Smokeless Tobacco: Never Alcohol Use Standard Drinks/Week Comments Never 0 (1 standard drink = 0.6 oz pur e alcohol) Berne Depression Scale Answer Date Recorded Retired Berne Depression Score 1 01/08/2022 Retired EPD Scale: Thought of Harming Self Unrec ognized value 01/08/2022 Education Answer Date Recorded What is the highest level of school you have completed or the highest degree you have received? High school graduate 01/03/2022 Comments No Sex and Gender Information Value Date Recorded Sex Assigned at Not on file Legal Sex Female 12:08 PM EDT Gender Identity Not on file Sexual Orientation Not on file Occupation Industry Job Start Date Job End Date Not on file Not on file Not on file Not on file documented as of this encounter Plan of Treatment Upcoming Encounters Date Type Department Care Team (Late st Contact Info) Description 03/25/2025 8:45 AM EDT Appointment [facility] [address] [place] [address] Genie Whitfield, PT documented as of this encounter Procedures Procedure Name Priority Date/Time Associated Diagnosis Comments TREPONEMA PALLIDUM AB W/REFLEX RPR Routine 02/04/2025 11:44 AM EDT care, subsequent , second trimester GLUCOSE, POST 50 GM GLUCOLA Routine 02/04/2025 11:44 AM EDT care, subsequent , second trimester CBC (NO DIFF) Routine 02/04/2025 11:44 AM EDT care, subsequent , second trimester documented in this encounter Results * Treponema pallidum AB w/Reflex RPR (02/04/2025 11:44 AM EDT) [facility] Treponemal AB Total Non-Reacti ve Non-React catalino 02/04/2025 2:43 PM EDT [facility] Blood Venipuncture / Unknown 02/04/2025 11:44 AM EDT 02/04/2025 11:44 AM EDT Narrative [facility] - 02/04/2025 2:43 PM EDT Reactive results will reflex RPR testing. us Rufina Chavez MD LAB BLOOD ORDERABLES Final Re sult [facility]
[address] [place] [address], * (ABNORMAL) CBC (No Diff) (02/04/2025 11:44 AM EDT) [facility] WBC 11.37(H) 3.40 - 10.80 10*3/mm3 02/04/2025 2:29 PM EDT [facility] RBC 3.84 3.77 - 5.28 10*6/mm3 02/04/2025 2:29 PM EDT [facility] Hemoglobin 12.0 12.0 - 15.9 g/dL 02/04/2025 2:29 PM EDT [facility] Hematocrit 36.3 34.0 - 46.6 % 02/04/2025 2:29 PM EDT [facility] MCV 94.5 79.0 - 97.0 fL 02/04/2025 2:29 PM EDT [facility] MCH 31.3 26.6 - 33.0 pg 02/04/2025 2:29 PM EDT [facility] MCHC 33.1 31.5 - 35.7 g/dL 02/04/2025 2:29 PM EDT [facility] RDW 12.9 12.3 - 15.4 % 02/04/2025 2:29 PM EDT [facility] RDW-SD 44.2 37.0 - 54.0 fl 02/04/2025 2:29 PM EDT [facility] MPV 10.3 6.0 - 12.0 fL 02/04/2025 2:29 PM EDT [facility] Platelets 250 140 - 450 10*3/mm3 02/04/2025 2:29 PM EDT [facility] Blood Venipuncture / Unknown 02/04/2025 11:44 AM EDT 02/04/2025 11:44 AM EDT us Rufina Chavez MD LAB BLOOD ORDERABLES Final Re sult [facility]
[address] [place] [address], [place] [phone] * Glucose, Post 50 Gm Glucola (02/04/2025 11:44 AM EDT) Gestational GCT 118 65 - 139 mg/dL 02/04/2025 12:33 PM EDT [facility] Blood Venipuncture / Unknown 02/04/2025 11:44 AM EDT 02/04/2025 11:44 AM EDT us Rufina Chavez MD LAB BLOOD ORDERABLES Final Re sult [facility]
[address] [place] [address], [place] [phone] documented in this encounter Visit Diagnoses Diagnosis care, subsequent , second trimester documented in this encounter Care Teams Automated Cutting Machine Operator Relationship Specialty Start Date End Date Provider, [place] [address] PCP - General 12/10/21 documented as of this encounter
--- OUTSIDE RECORDS SUMMARY | 2025-03-04 05:00 | XMS_ITS ---
Author Organization [facility] Address [address] [place] [address] Care Team Providers Care Maths Tutor Name Role Phone Rufina Chavez Unavailable [phone] Allergies Allergen (clinical drug ingredient) Drug/Non Drug Allergy documented on EMR Reaction Allergy Type Onset Date Status penicillin G Penicillin G Sodium Unknown Drug Allergy Active REASON FOR VISIT 28 wks Medications Medication SIG (Take, Route, Frequency, Duration) Notes Start Date End Date Status Ondansetron 8 MG Tablet Disintegrating 1 tablet on the tongue and allow to dissolve as needed Orally every 8 hours as needed 11/13/2024 Active Active Zofran Active Promethazine HCl 25 MG Tablet 1 tablet as needed Orally every 8 hours for nausea 11/13/2024 Active Scopolamine 1 MG/3DAYS Patch 72 Hour 1 patch to skin behind the ear as needed Transdermal every third day; Duration: 30 days 01/07/2025 Active Social History Tobacco Use: Social History Observation Description Date Details (start date - stop date) Never Smoker NA - NA Sex Assigned At : Social History Observation Description Sex Assigned At Female Social History Drugs/Alcohol: Social Info Question Answer Notes Drugs Have you used drugs other than those for medical reasons in the past 12 months? No Steroid Use Have you used anabolic (body building) st eroids? No Alcohol Screen Did you have a drink containing alcohol in the past year? No Points 0 Interpretation Negative Tobacco Use: Social Info Question Answer Notes Tobacco Use/Smoking Are you a nonsmoker Encounters Encounter Location Date Provider Diagnosis [facility] [address] [place] [address] 03/04/2025 Rufina Chavez Encounter for supervision of other normal in second trimester Z34.82 ; Class 3 obesity E66.01 ; Pelvic and perineal pain R10.2 and 27 weeks gestation of Z3A.27 Assessments Encounter Date Diagnosis (ICD Code) Assessment Notes Treatment Notes Treatment Clinical Notes Section Notes 03/04/2025 Encounter for supervision of other normal in second trimester (ICD-10 - Z34.82) 03/04/2025 Class 3 obesity (ICD-10 - E66.01) 03/04/2025 Pelvic and perineal pain (ICD-10 - R10.2) 03/04/2025 27 weeks gestation of (ICD-10 - Z3A.27) Plan Of Treatment Next Appt Details Provider Name:Rufina Chavez, 04/15/2025 08:00:00 AM, [address], [place], [address], Provider Name:Rufina Chavez, 04/15/2025 08:45:00 AM, [address], [place], [address], Provider Name:Rufina Chavez, 04/29/2025 09:15:00 AM, [address], [place], [address], Provider Name:Rufina Chavez, 05/06/2025 09:15:00 AM, [address], [place], [address], Provider Name:Rufina Chavez, 05/13/2025 09:00:00 AM, [address], [place], [address], Provider Name:Leena Barone, 05/20/2025 09:00:00 AM, [address], [address], Provider Name:Rufina Chavez, 05/24/2025 12:00:00 AM, [address], [place], [address], Provider Name:Rufina Scott, 07/07/2025 11:15:00 AM, [address] [facility] [address], [address], Progress Notes * Flip LIZOB: 000 (24 yo F)Acc No.[id number]:03/04/2025 Progress Note Patient: Gabrielle Torres Provider: Darrion Chavez MD :2000 A ge:24 Y S ex:Female Date:03/04/2025 Address:[address] [place], [place] [address], [id number] Subjective: * Chief Complaints: * 2 8 wks * Medical History: Endometriosis * Lactation Nurse History: M enstrual History: L MP: 0 08/19/2024 S exual Activity/Contraception: E devin been sexually active? Y es C ontraception: N one * OB History: P regnancy History (GPA) Total Pregnancies 2 Full Term 2 Living 2 P regnancy # 1: , female, normal spontaneous vaginal delivery (). P regnancy # 2: , female, normal spontaneous vaginal delivery (). * Surgical History: laparoscope for endometriosis * Hospitalization/Major Diagno stic Procedure: labor and delivery x2 * Family History: M other: alive. F ather: alive. M aternal Grand Mother: diagnosed with Heart disease, Diabetes mellitus without mention of complication, type II or unspecified type, not stated as uncontrolled, Unspecified essential hypertension. * Social History: T obacco Use: T obacco Use/Smoking A re you a n onsmoker D rugs/Alcohol: D rugs H ave you used drugs other than those for medical reasons in the past 12 months? N o Alcohol Screen D id you have a drink containing alcohol in the past year? N o P oints 0 I nterpretation N egative * Medications: T akingOndansetron 8 MG Tablet [...] needed Transdermal every third day Taking Zofran * Allergies: P enicillin G Sodium Assessment: * Assessment: 1. E ncounter for supervision of other normal in second trimester - Z34.82 (Primary)? 2. C lass 3 obesity - E66.01 3 . P elvic and perineal pain - R10.2 4 . 2 7 weeks gestation of - Z3A.27 * Electronic signature of Abdulaziz Chavez MD on 03/23/2025 at 01:58 PM EDT Sign off status: Pending Visit Status: N /S (No-Show) * Provider: Darrion Chavez MD Date: 0 03/04/2025 Generated for Becky acosta/Albina/Alexander on: 03/23/2025 01:58 PM EDT
--- OUTSIDE RECORDS SUMMARY | 2025-03-18 05:00 | XMS_ITS ---
Author Organization [facility] Address [address] [place] [address] Care Team Providers Care Assembler Sandal Parts Name Role Phone Rufina Chavez Unavailable [phone] Allergies Allergen (clinical drug ingredient) Drug/Non Drug Allergy documented on EMR Reaction Allergy Type Onset Date Status penicillin G Penicillin G Sodium Unknown Drug Allergy Active REASON FOR VISIT 30 wks Medications Medication SIG (Take, Route, Frequency, Duration) Notes Start Date End Date Status Scopolamine 1 MG/3DAYS Patch 72 Hour 1 patch to skin behind the ear as needed Transdermal every third day 01/07/2025 Active Promethazine HCl 25 MG Tablet 1 tablet as needed Orally every 8 hours for nausea 11/13/2024 Active 27-0.8 MG Tablet 1 tablet Orally Active Ondansetron 8 MG Tablet Disintegrating 1 tablet on the tongue and allow to dissolve as needed Orally every 8 hours as needed 11/13/2024 Active Social History Tobacco Use: Social History [...] Notes Tobacco Use/Smoking Are you a nonsmoker Problems Problem Type SNOMED Code ICD Code Onset Dates Problem Status W/U Status Risk Notes Problem Morning sickness (13439583) Nausea and vomiting during (O21.9) Active confirmed Problem Encounter for supervision of other normal , third trimester (Z34.83) Active confirmed Vital Signs Blood pressure systolic 104 mm Hg 03/18/20 25 Blood pressure diastolic 64 mm Hg 025 Height 67 in 03/18/2025 Weight 227.8 lbs 03/18/2025 BMI 35.679 kg/m2 03/18/2025 Encounters Encounter Location Date Provider Diagnosis [facility] [address] [facility] [address] [place] [address] 03/18/2025 Rufina Chavez Class 3 obesity E66.01 ; Encounter for supervision of other normal , third trimester Z34.83 ; Pelvic and perineal pain R10.2 ; 29 weeks gestation of Z3A.29 and Nausea and vomiting during O21.9 Assessments Encounter Date Diagnosis (ICD Code) Assessment Notes Treatment Notes Treatment Clinical Notes Section Notes 03/18/2025 Class 3 obesity (ICD-10 - E66.01) 03/18/2025 Encounter for supervision of other normal , third trimester (ICD-10 - Z34.83) 03/18/2025 Pelvic and perineal pain (ICD-10 - R10.2) 03/18/2025 29 weeks gestation of (ICD-10 - Z3A.29) 03/18/2025 Nausea and vomiting during (ICD-10 - O21.9) Plan Of Treatment Medication Medication Name Sig Start Date Stop Date Notes Scopolamine 1 MG/3DAYS Patch 72 Hour 1 patch to skin behind the ear as needed Transdermal every third day 01/07/2025 Promethazine HCl 25 MG Tablet 1 tablet a s needed Orally every 8 hours for nausea 11/13/2024 27-0.8 MG Tablet 1 tablet Orally Ondansetron 8 MG Tablet Disintegrating 1 tablet on the tongue and allow to dissolve as needed Orally every 8 hours as needed 11/13/2024 Future Test Test Name Order Date *US OB Follow-Up 03/18/2025 Next Appt Details Follow Up: 2 Weeks, Reason: Provider Name:Rufina Chavez, 04/15/2025 08:00:00 AM, [address], [place], [address], Provider Name:Rufina Chavez, 04/15/2025 08:45:00 AM, [address] [facility] [address], [address], [place], [address], Provider Name:Rufina Chavez, 04/29/2025 09:15:00 AM, [address], [address], [place], [address], Provider Name:Rufina Chavez, 05/06/2025 09:15:00 AM, [address] [facility] [address], [address], [place], [address], Provider Name:Rufina Chavez, 05/13/2025 09:00:00 AM, [address], [address], [place], [address], Provider Name:Leena Barone, 05/20/2025 09:00:00 AM, [address] [facility] [address], [place], [address], Provider Name:Rufina Chavez, 05/24/2025 12:00:00 AM, [address] [facility] [address], [place], [address], Provider Name:Rufina Chavez, 07/07/2025 11:15:00 AM, [address] [facility] [address], [place], [address], Progress Notes * Flip LIZOB: 000 (24 yo F)Acc No.[id number]:03/18/2025 Progress Note Patient: Gabrielle Torres Provider: Darrion Chavez MD :2000 A ge:24 Y S ex:Female Date:03/18/2025 Address:[address] [place] [address] [id number] Subjective: * Chief Complaints: * 3 0 wks * Medical History: Endometriosis : yes Medical History Verified * Computer Graphic Designer History: M enstrual History: L MP: 0 [...] (). * Surgical History: laparoscope for endometriosis Surgical History verified. * Hospitalization/Major Diagno stic Procedure: labor and delivery x2 Hospitalization Verified. * Family History: M other: alive. F ather: alive. M aternal Grand Mother: diagnosed with Heart disease, Diabetes mellitus without mention of complication, type II or unspecified type, not stated as uncontrolled, Unspecified essential hypertension. F amily History Verified.. * Social History: T obacco Use: T obacco Use/Smoking A re you a n onsmoker D rugs/Alcohol: D rugs H ave you used drugs other than those for medical reasons in the past 12 months? N o Alcohol Screen D id you have a drink containing alcohol in the past year? N o P oints 0 I nterpretation N egative S ocial History Verified. * Medications: T akingOndansetron 8 MG Tablet Disintegrating 1 tablet on the tongue and allow to dissolve as needed Orally every 8 hours as needed ( Vit-Fe Fumarate-FA) 27-0.8 MG Tablet 1 tablet Orally Promethazine HCl 25 MG Tablet 1 tablet as needed Orally every 8 hours for nausea Scopolamine 1 MG/3DAYS Patch 72 Hour 1 patch to skin behind the ear as needed Transdermal every third day Medication List reviewed and reconciled with the patientTaking Ondansetron 8 MG Tablet Disintegrating 1 tablet on the tongue and allow to dissolve as needed Orally every 8 hours as needed Taking ( Vit-Fe Fumarate-FA) 27-0.8 MG Tablet 1 tablet Orally Taking Promethazine HCl 25 MG Tablet 1 tablet as needed Orally every 8 hours for nausea Taking Scopolamine 1 MG/3DAYS Patch 72 Hour 1 patch to skin behind the ear as needed Transdermal every third day Medication List reviewed and reconciled with the patient * Allergies: P enicillin G SodiumyesAllergies Verified. Objective: * Vitals: B P:104/64mm Hg, Ht: 67 in, Wt: 227.8 lbs, BMI: 35.679 Index. * P ast Orders: L ab:CBC (NO DIFF) (Order Date - 02/04/2025) (Collection Date & Time - 02/04/2025 01:44 PM) Result: 12 Value Reference Range WBC, CORRECTED 11.37 H 3.40-10.80 - 10*3/mm 3 ERYTHROCYTES IN BLOOD BY AUTOMATED COUNT 3.84 3.77-5.28 - 10*6/mm3 HEMOGLOBIN (MG/DL) IN BLOOD 12.0 12.0-15.9 - g/dL HEMATOCRIT (%) BY AUTOMATED COUNT 36.3 34.0-4 6.6 - % RBC MCV (FL) BY AUTOMATED COUNT 94.5 79.0-97. 0 - fL RBC MCH (PG) BY AUTOMATED COUNT 31.3 26.6-33. 0 - pg RBC MCHC (G/DL) BY AUTOMATED COUNT 33.1 31.5- 35.7 - g/dL RBC RDW (%) BY AUTOMATED COUNT 12.9 12.3-15.4 - % RDW-SD 44.2 37.0-54.0 - fl MEAN PLATELET VOLUME (FL) BY AUTOMATED COUNT 10.3 6.0-12.0 - fL PLATELETS BY AUTOMATED COUNT 250 140-450 - 1 0*3/mm3 L ab:GLUCOSE, POST 50 GM GLUCOLA (Order Date - 02/04/2025) (Collection Date & Time - 02/04/2025 01:44 PM) Result: 118-passed Value Reference Range GESTATIONAL GCT 118 65-139 - mg/dL Assessment: * Assessment: 1. E ncounter for supervision of other normal , third trimester - Z34.83 (Primary)? 2. C lass 3 obesity - E66.01 3 . P elvic and perineal pain - R10.2 4 . 2 9 weeks gestation of - Z3A.29 5 . N ausea and vomiting during - O21.9 Plan: * Treatment: 2. C lass 3 obesity I maging: *US OB Follow-Up (Ordered for 03/18/2025) 3. N ausea and vomiting during Continue Ondansetron Tablet Disintegrating, 8 MG, 1 tablet on the tongue and allow to dissolve as needed, Orally, every 8 hours as needed; C ontinue Promethazine HCl Tablet, 25 MG, 1 tablet as needed, Orally, every 8 hours for nausea; C ontinue Scopolamine Patch 72 Hour, 1 MG/3DAYS, 1 patch to skin behind the ear as needed, Transdermal, every third day. * Procedure Codes: r ob Return OB [id number] HEDIS SUBSEQUENT CARE * Follow Up: 2 Weeks Billing Information: * Visit Code: della Return OB Visit. * Procedure Codes: della Return OB Visit. [id number] HEDIS SUBSEQUENT CARE. * Sign off status: Completed Visit Status: C HK (Check Out) true * Provider: Darrion Chavez MD Date: 03/18/2025 Generated for Becky acosta/Albina/Alexander on: 03/23/2025 01:59 PM EDT
--- OUTSIDE RECORDS SUMMARY | 2025-03-23 13:59 | XMS_ITS | Clinical Summary ---
[facility] Address [address] [place] [address] Care Team Providers Care Agent Name Role Phone Provider, No Known Primary Care Provider Unavail able Allergies Active Allergy Reactions Criticality Noted Date Comments Penicillins Unknown - Low Severity 05/22/2021 Childhood reaction Vancomycin Hives,Itching 01/08/2022 Discovered this admission for GBS prophylaxis Medications Vit-Fe Fumarate-FA ( ) 27-1 MG tablet tablet Take by mouth Daily. Active Active Problems Problem Noted Date Diagnosed Date anemia 01/09/2022 Normal spontaneous vaginal delivery 01/08/2022 Resolved Problems Problem Noted Date Diagnosed Date Resolved Date 39 weeks gestation of 01/07/2022 01/08/2022 01/03/2022 01/08/2022 Encounters Date Type Department Care Team Description 02/04/2025 10:45 AM EDT Lab [facility] [address] [place] [address] care, subsequent , second trimester 02/04/2025 Travel from Last 3 Months Social History Tobacco Use Types Packs/Day Years Used Date Smoking Tobacco: Never Smokeless Tobacco: Never Alcohol Use Standard Drinks/Week Comments Never 0 (1 standard drink = 0.6 oz pur e alcohol) [place] Depression Scale Answer Date Recorded Retired [place] Depression Score 1 01/08/2022 Retired EPD Scale: [...] file Not on file Not on file Last Filed Vital Signs Vital Sign Reading Time Taken Comments Blood Pressure 127/76 01/10/2022 7:00 AM EDT Pulse 89 01/10/2022 7:00 AM EDT Temperature 36.6 C (97.9 F) 01/10/2022 7:00 AM EDT Respiratory Rate 18 01/10/2022 7:00 AM EDT Oxygen Saturation 98% 12/10/2021 7:36 PM EDT Inhaled Oxygen Concentration - - Weight 100 kg (221 lb) 01/07/2022 5:35 PM EDT Height 167.6 cm (5' 6 ) 01/07/2022 5:35 PM EDT Body Mass Index 35.67 01/07/2022 5:35 PM EDT Plan of Treatment Upcoming Encounters Date Type Department Care Team (Late st Contact Info) Description 03/25/2025 8:45 AM EDT Appointment [facility] [address] [place] [address] Genie Whitfield, PT Health Maintenance Due Date Last Done Comments Annual Gynecologic Pelvic an d Breast Exam 2000 ANNUAL PHYSICAL 05/22/2021 COVID-19 Vaccine ( - 2023-2 5 season) 2024 INFLUENZA VACCINE 04/28/2025 05/23/2016 CHLAMYDIA SCREENING 12/11/2025 12/11/2024, 06/15/2021 TDAP/TD VACCINES (4 - Td or Tdap) 03/27/2033 03/27/2023, 05/11/2020, 01/03/2011 HPV VACCINES Completed 08/27/2012, 05/14/2012, 02/25/2012 HEPATITIS C SCREENING Completed 12/11/2024 , 06/15/2021, 06/15/2021 MENINGOCOCCAL B VACCINE Aged Out No l onger eligible based on patient's age to complete this topic Pneumococcal Vaccine 0-49 Aged Out No longer eligible based on patient's age to complete this topic Procedures Procedure Name Priority Date/Time Associated Diagnosis Comments POCT POST GLUCOSE TOLERANCE Routine 02/04/2025 11:44 AM EDT care, subsequent , second trimester TREPONEMA PALLIDUM AB W/REFLEX RPR Routine 02/04/2025 11:44 AM EDT care, subsequent , second trimester CBC (NO DIFF) Routine 02/04/2025 11:44 AM EDT care, subsequent , second trimester GLUCOSE, POST 50 GM GLUCOLA Routine 02/04/2025 11:44 AM EDT care, subsequent , second trimester CHLAMYDIA TRACHOMATIS, NEISSERIA GONORRHOEAE, TRICHOMONAS VAGINALIS, PCR Routine 12/11/2024 3:23 PM EDT care, subsequent , first trimester HEPATITIS C ANTIBODY Routine 12/11/2024 3:23 PM EDT care, subsequent , first trimester from Last 3 Months or Most Recently Relevant to Health Maintenance Results * Treponema pallidum AB w/Reflex RPR (02/04/2025 11:44 AM EDT) Treponemal AB Total Non-Reacti ve Non-React catalino 02/04/2025 2:43 PM EDT [facility] Blood Venipuncture / Unknown 02/04/2025 11:44 AM EDT 02/04/2025 11:44 AM EDT Narrative [facility] - 02/04/2025 2:43 PM EDT Reactive results will reflex RPR testing. us Rufina Chavez MD LAB BLOOD ORDERABLES Final Re sult [facility]
[address] [place] [address], * POCT Post Glucose Tolerance (02/04/2025 11:44 AM EDT) Blood Venipuncture / Unknown 02/04/2025 11:44 AM EDT 02/04/2025 11:44 AM EDT us Rufina Chavez MD POINT OF CARE TEST ORDERABLES Final Result [facility]
[address] [place] [address], * Glucose, Post 50 Gm Glucola (02/04/2025 11:44 AM EDT) [facility] Gestational GCT 118 65 - 139 mg/dL 02/04/2025 12:33 PM EDT [facility] Blood Venipuncture / Unknown 02/04/2025 11:44 AM EDT 02/04/2025 11:44 AM EDT us Rufina Chavez MD LAB BLOOD ORDERABLES Final Re sult Performing Organization Address [facility] Co de Phone Number [facility]
[address] [place] [address], * (ABNORMAL) CBC (No Diff) (02/04/2025 11:44 AM EDT) [facility] WBC 11.37(H) 3.40 - 10.80 10*3/mm3 02/04/2025 2:29 PM EDT [facility] RBC 3.84 3.77 - 5.28 10*6/mm3 02/04/2025 2:29 PM EDT [facility] Hemoglobin 12.0 12.0 - 15.9 g/dL 02/04/2025 2:29 PM EDT [facility] Hematocrit 36.3 34.0 - 46.6 % 02/04/2025 2:29 PM EDT [facility] MCV 94.5 79.0 - 97.0 fL 02/04/2025 2:29 PM EDT [facility] MCH 31.3 26.6 - 33.0 pg 02/04/2025 2:29 PM EDT [facility] MCHC 33.1 31.5 - 35.7 g/dL 02/04/2025 2:29 PM EDT [facility] RDW 12.9 12.3 - 15.4 % 02/04/2025 2:29 PM EDT [facility] RDW-SD 44.2 37.0 - 54.0 fl 02/04/2025 2:29 PM EDT [facility] MPV 10.3 6.0 - 12.0 fL 02/04/2025 2:29 PM EDT [facility] Platelets 250 140 - 450 10*3/mm3 02/04/2025 2:29 PM EDT [facility] Blood Venipuncture / Unknown 02/04/2025 11:44 AM EDT 02/04/2025 11:44 AM EDT us Rufina Chavez MD LAB BLOOD ORDERABLES Final Re sult [facility]
[address] [place] [address], * Chlamydia trachomatis, Neisseria gonorrhoeae, Trichomonas vaginalis, PCR - Urine, Urine, Clean Catch (12/11/2024 3:23 PM EDT) [facility] Chlamydia trachomatis, RICHARD Negative Negative 12/14/2024 7:08 AM EDT [facility] Gonococcus by RICHARD Negative Negative 12/14/2024 7:08 AM EDT [facility] Trichomonas vaginosis Negative Negative 12/14/2024 7:08 AM EDT [facility] Urine Urine specimen obtained by clean catch procedure / Unknown Collection / Unknown 12/11/2024 3:23 PM EDT 12/11/2024 3:23 PM EDT Narrative [facility] - 12/14/2024 7:08 AM EDT Performed at: [address] [place] [id number] Alley Tender: Francisca Shafer MD, Phone: [phone] us Rufina Chavez MD MICROBIOLOGY - GENERAL ORDERA BLES Final Result [facility] [address] [place] [address], * Hepatitis C Antibody (12/11/2024 3:23 PM EDT) Hepatitis C Ab Non-Reacti ve Non-Reacti ve 12/11/2024 11:15 PM EDT [facility] Blood Venipuncture / Unknown 12/11/2024 3:23 PM EDT 12/11/2024 3:23 PM EDT us Rufina Chavez MD LAB BLOOD ORDERABLES Final Re sult [facility]
[address] [place] [address], from Last 3 Months or Most Recently Relevant to Health Maintenance [facility] Advance Directives * CPR (Attempt to Resuscitate) (Latest Code Status on File) Date Activated Date Inactivated Comments 01/08/2022 1:21 PM 01/10/2022 12:38 PM Question Answer Comments Code Status (Patient has no pulse and is not breathing): CPR (Attempt to Resuscitate) Medical Interventions (Patie nt has pulse or is breathing): Full * CPR (Attempt to Resuscitate) Date Activated Date Inactivated Comments 01/07/2022 5:24 PM 01/08/2022 1:21 PM Question Answer Comments Code Status (Patient has no pulse and is not breathing): CPR (Attempt to Resuscitate) Medical Interventions (Patie nt has pulse or is breathing): Full Care Teams Agent Relationship Specialty Start Date End Date Provider, [place] [address] PCP - General 12/10/21
--- OUTSIDE RECORDS SUMMARY | 2025-03-23 13:59 | XMS_ITS | Encounter Summary ---
Author Organization [facility] Address [address] [place] [address] Care Team Providers Care Managed Services Consultant Name Role Phone Provider, No Known Primary Care Provider Unavail able Encounter Details Date Type Department Care Team (Latest Contact Info) Description 02/04/2025 Travel Social History Tobacco Use Types Packs/Day Years Used Date Smoking Tobacco: Never Smokeless Tobacco: Never Alcohol Use Standard Drinks/Week Comments Never 0 (1 standard drink = 0.6 oz pur e alcohol) Drake Depression Scale Answer Date Recorded Retired Drake Depression Score 1 01/08/2022 Retired EPD Scale: [...] Info) Description 03/25/2025 8:45 AM EDT Appointment [facility] [address] [place] [address] Genie Whitfield, PT documented as of this encounter Visit Diagnoses Not on filedocumented in this encounter Care Teams Managed Services Consultant Relationship Specialty Start Date End Date Provider, No Known [facility] [place] [address] PCP - General 12/10/21 documented as of this encounter
--- OUTSIDE RECORDS SUMMARY | 2025-03-23 13:59 | XMS_ITS | Patient Health Record ---
Author Organization [facility] Address [address] [facility] [address] [place] [address] Care Team Providers Care Special Effects Specialist Name Role Phone Rufina Chavez Unavailable [phone] Loren Barba Unavailable [phone] Sahra Ferrara Unavailable [phone] Allergies Allergen (clinical drug ingredient) Drug/Non Drug Allergy documented on EMR Reaction Allergy Type Onset Date Status penicillin G Penicillin G Sodium Unknown Drug Allergy Active Results Component Value Reference Range Flag Notes *US OB Complete Transabdomin al/Vaginal Reviewed date:11/13/2024 12:32:10 PM Interpretation: Performing Lab: Notes/Report: [facility] Transabdominal Obstetric Study Report Name: GABRIELLE LIZ Accession/Encounter No:[id number] Procedure/Order ID: [id number] : 2000 Age: 24 Gender: F Study Date: Nov 13, 2024 Study Time: 10:10 AM Reading Group: Rufina Chavez MD Referring Group: Rufina Chavez MD Ordering Phys: Rufina Chavez MD Performing User: Katelyn Ugalde RDMS Equipment: Affiniti 30 Study Quality: Good Indications: Estimation of gestational age; unsure of LMP A transabdominal OB ultrasound was performed. General Information Trimester: 1st trimester Gestations: 1 : Intrauterine Gestational Age (Best) Best: 11w 6d Determined by: Current US DONOVAN: 2025-05-29 Gestational Age (Current US) Current US: 11w 6d Current US DONOVAN by: [place] [id number] DONOVAN: 2025-05-29 General Evaluation cardiac activity: Present pole: Present Biometry (Fetus A) HR: 155 bpm Beech Bottom-rump length:51.8 mm 11w 6d 36% Findings: Anatomy: Sonographic evaluation reveals ortiz intrauterine . cardiac activity present. growth appears normal. Conclusions: Ortiz IUP noted with cardiac activity. Gestational age is noted above. Uterus, ovaries and bilateral adnexa appear normal. Approved By: Rufina Chavez MD Approved at: November 13, 2024 12:28 PM EDT Electronically Signed on Studycast GABRIELLE LIZ 2024-11-13 Page 1 of 1 Imaging Center - , [facility] [address] *US OB Detailed Anatomy Reviewed date:01/07/2025 12:32:21 PM Interpretation: Performing Lab: Notes/Report: [facility] Transabdominal Obstetric Study Report Name: GABRIELLE LIZ Accession/Encounter No:[id number] Procedure/Order ID: [id number] : 2000 Age: 24 Gender: F Study Date: Jan 07, 2025 Study Time: 08:07 AM Reading Group: Rufina Chavez MD Referring Group: Rufina Chavez MD Ordering Phys: Rufina Chavez MD Performing User: Rosa Moreno RDMS Equipment: Affiniti 30 Study Quality: Good Procedure Code: USOBDETAIL - *US OB Detailed Anatomy Indications: anatomy scan Risk Factors: Obesity An anatomy ultrasound was performed. Disclaimer: Ultrasound cannot detect all structural defects or underlying genetic abnormalities. Additionally, some abnormalities develop over time and/or are not detectable until after . General Information Trimester: 2nd/3rd trimester Gestations: 1 : Intrauterine Gestational Age (Best) Best: 19w 5d Determined by: early scan DONOVAN: 2025-05-29 Gestational Age (Current US) Current US: 19w 6d DONOVAN: 2025-05-28 Gestational Age (Other) Other: 19w 5d Description: early scan DONOVAN: 2025-05-29 General Evaluation gender: F cardiac activity: Present Presentation/Position: Breech Placental location: Fundal-anterior Biometry (Fetus A) EFW: 307.9g 11 oz 48% REGLA-76 HR: 142 bpm BPD: 4.55 cm 19w 5d 52% HADLOCK-84 HC: 17.25 cm19w 6d 47% HADLOCK-84 AC: 14.6 cm 19w 6d 51% HADLOCK-84 FL: 3.05 cm 19w 3d 32% HADLOCK-84 Humerus lillian: 2.92 cm 19w 4d 38% [id number] FL/HC: 0.18 HC/AC: 1.18 FL/BPD: 0.67 FL/AC: 0.21 Cisterna magna: 5.2 mm Lateral vents: 6.3 mm TCD: 1.84 cm 19w 0d 7% Nuchal fold: 3.12 mm Anatomy (Fetus A) Midline falx: Normal Cisterna magna: Normal Choroid plexus: Normal Lateral ventricles: Normal Cerebellum: Normal CSP: Normal Orbits: Normal Face: Normal Profile: Normal Nasal bone: Normal Nose/Lips: Normal Right upper extr: Normal Right lower extr: Normal Left upper extr: Normal Left lower extr: Normal 4-chamber heart: Normal LVOT: Normal RVOT: Normal Cardiac rhythm: Normal 3VTV: Normal 3VV: Normal Spine: Normal Stomach: Normal Diaphragm: Normal Bowel: Normal Right kidney: Normal Left kidney: Normal Bladder: Normal Abdom. cord insert: Normal Cord vessels: 3 vessel cord Findings: Anatomy: Sonographic evaluation reveals ortiz intrauterine in breech position. Fundal-anterior placenta. cardiac activity present. growth appears normal. Maternal Anatomy: Cervix is 3.53 cm long. The ovaries are visualized. Conclusions: Ortiz IUP noted with cardiac activity. No anomalies noted at this time. growth is consistent with dating. Fluid appears normal Approved By: Rufina Chavez MD Approved at: January 07, 2025 12:29 PM EDT Electronically Signed on Studycast GABRIELLE LIZ 2025-01-07 Page 1 of 1 Imaging Center - , [facility] [address] Urine Reviewed date:10/16/2024 07:53:32 PM Interpretation:Positive Performing Lab: Notes/Report: CBC WITH AUTO DIFFERENTIAL Reviewed date:12/14/2024 11:47:55 AM Interpretation:Normal Performing Lab: Notes/Report: WBC, CORRECTED 12.10 3.40-10.80 10*3/mm3 H ERYTHROCYTES IN BLOOD BY AUTOMATED COUNT 4.26 3.77-5.28 10*6/mm3 HEMOGLOBIN (G/DL) IN BLOOD 13.0 12.0-15.9 g/dL HEMATOCRIT (%) BY AUTOMATED COUNT 39.7 34.0-46.6 % RBC MCV (FL) BY AUTOMATED COUNT 93.2 79.0-97.0 fL RBC MCH (PG) BY AUTOMATED COUNT 30.5 26.6-33.0 pg RBC MCHC (G/DL) BY AUTOMATED COUNT 32.7 31.5-35.7 g/dL RBC RDW (%) BY AUTOMATED COUNT 14.6 12.3-15.4 % RDW-SD 50.0 37.0-54.0 fl MEAN PLATELET VOLUME (FL) BY AUTOMATED COUNT 11.2 6.0-12.0 fL PLATELETS BY AUTOMATED COUNT 242 140-450 10*3/mm3 NEUTROPHILS RELATIVE PERCENT BY AUTOMATED COUNT 76.8 42.7-76.0 % H LYMPHOCYTES RELATIVE PERCENT BY AUTOMATED COUNT 13.6 19.6-45.3 % L MONOCYTES RELATIVE PERCENT BY AUTOMATED COUNT 6.6 5.0-12.0 % EOSINOPHILS RELATIVE PERCENT BY AUTOMATED COUNT 2.1 0.3-6.2 % BASOPHILS RELATIVE PERCENT BY AUTOMATED COUNT 0.4 0.0-1.5 % IMMATURE GRANULOCYTES RELATIVE PERCENT 0.5 0.0-0.5 % NEUTROPHILS ABSOLUTE COUNT BY AUTOMATED COUNT 9.30 1.70-7.00 10*3/mm3 H LYMPHOCYTES ABSOLUTE COUNT BY AUTOMATED COUNT 1.64 0.70-3.10 10*3/mm3 MONOCYTES ABSOLUTE COUNT BY AUTOMATED COUNT 0.80 0.10-0.90 10*3/mm3 EOSINOPHILS ABSOLUTE COUNT BY AUTOMATED COUNT 0.25 0.00-0.40 10*3/mm3 BASOPHILS ABSOLUTE COUNT BY AUTOMATED COUNT 0.05 0.00-0.20 10*3/mm3 IMMATURE GRANULOCYTES ABSOLUTE COUNT 0.06 0.00-0.05 10*3/mm3 H NRBC (PER 100 WBCS) 0.0 0.0-0.2 /100 WBC Lab specimens received at a [facility].?See result details for the performing location information. URINE DRUG SCREEN Reviewed date:12/11/2024 04:33:42 PM Interpretation:Negative Performing Lab: Notes/Report: Cutoff For Drugs Screened: Amphetamines 500 ng/ml Barbiturates 200 ng/ml Benzodiazepines 150 ng/ml Cocaine 150 ng/ml Methadone 200 ng/ml Opiates 100 ng/ml Phencyclidine 25 ng/ml THC 50 ng/ml Methamphetamine 500 ng/ml Tricyclic Antidepressants 300 ng/ml Oxycodone 100 ng/ml Buprenorphine 10 ng/ml The normal value for all drugs tested is negative. This report includes unconfirmed screening results, with the cutoff values listed, to be used for medical treatment purposes only. Unconfirmed results must not be used for non-medical purposes such as employment or legal testing. Clinical consideration should be applied to any drug of abuse test, particularly when unconfirmed results are used. THC URINE Negative Negative PHENCYCLIDINE SCREEN URINE Negative Negative COCAINE, URINE Negative Negative METHAMPHETAMINE Negative Negative OPIATES URINE Negative Negative AMPHETAMINE SCREEN URINE Negative Negative BENZODIAZEPINE SCREEN, URINE Negative Negative TRICYCLIC ANTIDEPRESSANTS SCREEN URINE Negative Negative METHADONE SCREEN, URINE Negative Negative BARBITURATE SCREEN, URINE Negative Negative OXYCODONE SCREEN URINE Negative Negative BUPRENORPHINE Negative Negative Lab specime ns received at a [facility].?See result details for the performing location information. URINE CULTURE Reviewed date:12/14/2024 11:47:25 AM Interpretation:Negative Performing Lab: Notes/Report: Colonization of the urinary tract without infection is common. Treatment is discouraged unless the patient is symptomatic, , or undergoing an invasive urologic procedure. URINE CULTURE 2304 NORMAL UROGENITAL MINH >100,000 CFU/mL Normal Urogenital Minh Lab specimens received at a [facility].?See result details for the performing location information. HEPATITIS C ANTIBODY Reviewed date:12/14/2024 11:48:21 AM Interpretation:Negative Performing Lab: Notes/Report: HEPATITIS C ANTIBODY Non-Reactive Non-Reacti La b specimens received at a [facility].?See result details for the performing location information. HIV-1/O/2 ANTIGEN/ANTIBODY, 4TH GENERATION Reviewed date:12/14/2024 11:48:09 AM Interpretation:Negative Performing Lab: Notes/Report: The HIV antibody/antigen combo assay is a qualitative assay for HIV that includes the p24 antigen as well as antibodies to HIV types 1 and 2. This test is intended to be used as a screening assay in the diagnosis of HIV infection in patients over the age of 2. HIV DUO Non-Reactive Non-Reacti Lab specimen s received at a [facility].?See result details for the performing location information. HEMOGLOBIN A1C Reviewed date:12/14/2024 11:47:45 AM Interpretation:4.6 normal Performing Lab: Notes/Report: Hemoglobin A1C Ranges: Increased Risk for Diabetes 5.7% to 6.4% Diabetes >= 6.5% Diabetic Goal < 7.0% HEMOGLOBIN A1C 4.60 4.80-5.60 % L Lab speci mens received at a [facility].?See result details for the performing location information. HEPATITIS B SURFACE ANTIGEN Reviewed date:12/14/2024 11:48:03 AM Interpretation:Negative Performing Lab: Notes/Report: HEPATITIS B SURFACE ANTIGEN Non-Reactive Non-Reacti Lab specimens received at a [facility].?See result details for the performing location information. RUBELLA ANTIBODY, IGG Reviewed date:12/14/2024 11:47:36 AM Interpretation:Immune Performing Lab: Notes/Report: Performed at: - [address] [id number] Cattle Examiner: Albino Bautista PhD, Phone: [phone] RUBELLA ANTIBODIES, IGG (REF) 1.68 Immune >0. index Lab specimens received at a [facility].?See result details for the performing location information. Equivocal 0.90 - 0.99 Immune >0.99 Non-immune <0.90 TREPONEMA PALLIDUM (SYPHILIS ) SCREENING CASCADE Reviewed date:12/14/2024 11:48:15 AM Interpretation:Negative Performing Lab: Notes/Report: Reactive results will reflex RPR testing. TREPONEMAL AB TOTAL Non-Reactive Non-Reacti Lab specimens received at a [facility].?See result details for the performing location information. FENTANYL, URINE Reviewed date:12/14/2024 11:48:42 AM Interpretation:Negative Performing Lab: Notes/Report: Negative Threshold: Fentanyl 5 ng/mL The normal value for the drug tested is negative. This report includes final unconfirmed screening results to be used for medical treatment purposes only. Unconfirmed results must not be used for non-medical purposes such as employment or legal testing. Clinical consideration should be applied to any drug of abuse test, particularly when unconfirmed results are used. ? ? ? FENTANYL URINE Negative Negative Lab specim ens received at a [facility].?See result details for the performing location information. CBC (NO DIFF) Reviewed date:02/04/2025 04:37:52 PM Interpretation:12 Performing Lab: Notes/Report: WBC, CORRECTED 11.37 3.40-10.80 10*3/mm3 H ERYTHROCYTES IN BLOOD BY AUTOMATED COUNT 3.84 3.77-5.28 10*6/mm3 HEMOGLOBIN (G/DL) IN BLOOD 12.0 12.0-15.9 g/dL HEMATOCRIT (%) BY AUTOMATED COUNT 36.3 34.0-46.6 % RBC MCV (FL) BY AUTOMATED COUNT 94.5 79.0-97.0 fL RBC MCH (PG) BY AUTOMATED COUNT 31.3 26.6-33.0 pg RBC MCHC (G/DL) BY AUTOMATED COUNT 33.1 31.5-35.7 g/dL RBC RDW (%) BY AUTOMATED COUNT 12.9 12.3-15.4 % RDW-SD 44.2 37.0-54.0 fl MEAN PLATELET VOLUME (FL) BY AUTOMATED COUNT 10.3 6.0-12.0 fL PLATELETS BY AUTOMATED COUNT 250 140-450 10*3/mm3 Lab specimens received at a [facility].?See result details for the performing location information. GLUCOSE, POST 50 GM GLUCOLA Reviewed date:02/04/2025 04:37:52 PM Interpretation:118-passed Performing Lab: Notes/Report: GESTATIONAL GCT 118 65-139 mg/dL Lab spe cimens received at a [facility].?See result details for the performing location information. TREPONEMA PALLIDUM (SYPHILIS ) SCREENING CASCADE Reviewed date:02/04/2025 04:37:52 PM Interpretation:Negative Performing Lab: Notes/Report: Reactive results will reflex RPR testing. TREPONEMAL AB TOTAL Non-Reactive Non-Reacti Lab specimens received at a [facility].?See result details for the performing location information. CHLAMYDIA TRACHOMATIS, NEISS ERIA GONORRHOEAE, TRICHOMONAS VAGINALIS, PCR Reviewed date:12/14/2024 11:47:19 AM Interpretation:Negative Performing Lab: Notes/Report: Performed at: [address] [id number] Cattle Examiner: Francisca Shafer MD, Phone: [phone] CHLAMYDIA TRACHOMATIS, RICHARD Negative Negative GONOCOCCUS BY RICHARD Negative Negative TRICHOMONAS VAG Negative Negative Lab speci mens received at a [facility].?See result details for the performing location information. ABO/RH Reviewed date:12/14/2024 11:48:36 AM Interpretation:A+ Performing Lab: Notes/Report: ABO TYPE A RH TYPE Positive Lab specimens received at a [facility].?See result details for the performing location information. ANTIBODY SCREEN Reviewed date:12/14/2024 11:48:27 AM Interpretation:Negative Performing Lab: Notes/Report: ANTIBODY SCREEN Negative Lab speci mens received at a [facility].?See result details for the performing location information. Reason For Referral Reason Pelvic Pt- pelvic an d back pain in Diagnosis 1 Pelvic and perineal pain (R10.2) Referral Organization [facility] Referring Provider First Name Rufina Referring Provider Last Name Scott Referring Provider Speciality OB - Gynec ology General Notes Echo Bolton 01/07 10:02:09 AM EDT >Faxed to nereida with as [facility] a jose [facility], whoever can see pt the soonest Referral Priority Routine Medications Medication SIG (Take, Route, Frequency, Duration) [...] Problem Status W/U Status Risk Notes Problem Pelvic and perineal pain (432068116) Pelvic and perineal pain (R10.2) Active confirmed Problem Morning sickness (23420982) Nausea and vomiting during (O21.9) Active confirmed Problem Third trimester (11383158) Encounter for supervision of other normal , third trimester (Z34.83) Active confirmed Problem Morbid obesity (223386819) Class 3 obesity (E66.01) Active confirmed Vital Signs Blood pressure diastolic 64 mm Hg 03/18/2025 Height 67 in 03/18/2025 Blood pressure systolic 104 mm Hg 03/18/2025 Weight 227.8 lbs 03/18/2025 BMI 35.679 kg/m2 03/18/2025 Encounters Encounter Location Date Provider Diagnosis [facility] [address] [facility] [address] [place] [address] 03/18/2025 Rufina Chavez [facility] [address] [facility] [address] [place] [address] 11/13/2024 Rufina Chavez Encounter for supervision of other normal , first trimester Z34.81 [facility] [address] [facility] [address] [place] [address] 01/07/2025 Rufina Chavez Encounter for supervision of other normal in second trimester Z34.82 [facility] [address] [facility] [address] [place] [address] 10/16/2024 Loren Barba Missed [facility]enses N92.6 [facility] [address] [facility] [address] [place] [address] 11/13/2024 Rufina Chavez Encounter for supervision of other normal , first trimester Z34.81 and 11 weeks gestation of Z3A.11 [facility] [address] [facility] [address] [place] [address] 12/11/2024 Rufina Chavez 15 weeks gestation of Z3A.15 ; Encounter for supervision of other normal in second trimester Z34.82 and Class 3 obesity E66.01 [facility] [address] [facility] [address] [place] [address] 01/07/2025 Rufina Chavez Encounter for supervision of other normal in second trimester Z34.82 ; 19 weeks gestation of Z3A.19 ; Class 3 obesity E66.01 ; Other specified related conditions, unspecified trimester O26.899 and Pelvic and perineal pain R10.2 [facility] [address] [facility] [address] [place] [phone] 02/04/2025 Sahra Ferrara 24 weeks gestation of Z3A.24 and Supervision of other normal , third trimester Z34.83 [facility] [address] [facility] [address] [place] [address] 03/18/2025 Rufina Chavez Class 3 obesity E66.01 ; Encounter for supervision of other normal , third trimester Z34.83 ; Pelvic and perineal pain R10.2 ; 29 weeks gestation of Z3A.29 and Nausea and vomiting during O21.9 Assessments Encounter Date Diagnosis (ICD Code) Assessment Notes Treatment Notes Treatment Clinical Notes Section Notes 11/13/2024 Encounter for supervision of other normal , first trimester (ICD-10 - Z34.81) 12/11/2024 15 weeks gestation of (ICD-10 - Z3A.15) 12/11/2024 Encounter for supervision of other normal in second trimester (ICD-10 - Z34.82) 11/13/2024 Encounter for supervision of other normal , first trimester (ICD-10 - Z34.81) 01/07/2025 19 weeks gestation of (ICD-10 - Z3A.19) 01/07/2025 Encounter for supervision of other normal in second trimester (ICD-10 - Z34.82) 10/16/2024 Missed menses (ICD-10 - N92.6) See HPI. Discussed early OB education. Advised to start PNV. Hx of normal births and no complications during or prior to . Saw Dr. Chavez with her other children at [place]. Will get labs and possibly genetic testing next visit. No other concerns. Total time spent caring for patient today was 30 minutes. This includes time spend before the visit reviewing chart, time spent during the visit, and time spend after the visit on documentation. Time does not include procedure time. 11/13/2024 11 weeks gestation of (ICD-10 - Z3A.11) 01/07/2025 Encounter for supervision of other normal in second trimester (ICD-10 - Z34.82) 02/04/2025 24 weeks gestation of (ICD-10 - Z3A.24) 02/04/2025 Supervision of other normal , third trimester (ICD-10 - Z34.83) 03/18/2025 Encounter for supervision of other normal , third trimester (ICD-10 - Z34.83) 03/18/2025 Class 3 obesity (ICD-10 - E66.01) 03/18/2025 Pelvic and perineal pain (ICD-10 - R10.2) 01/07/2025 Class 3 obesity (ICD-10 - E66.01) 12/11/2024 Class 3 obesity (ICD-10 - E66.01) 01/07/2025 Other specified related conditions, unspecified trimester (ICD-10 - O26.899) 03/18/2025 29 weeks gestation of (ICD-10 - Z3A.29) 03/18/2025 Nausea and vomiting during (ICD-10 - O21.9) 01/07/2025 Pelvic and perineal pain (ICD-10 - R10.2) Plan Of Treatment Future Test Test Name Order Date *US OB Follow-Up 03/18/2025 Next Appt Details Provider Name:Rufina Buckleynorm, 04/15/2025 08:00:00 AM, [address], [place], [address], Provider Name:Rufina Buckleynorm, 04/15/2025 08:45:00 AM, [address], [address], [place], [address], Provider Name:Rufina Chavez, 04/29/2025 09:15:00 AM, [address], [place], [address], Provider Name:Rufina Chavez, 05/06/2025 09:15:00 AM, [address], [address], [place], [address], Provider Name:Rufina Chavez, 05/13/2025 09:00:00 AM, [address], [place], [address], Provider Name:Leena Barone, 05/20/2025 09:00:00 AM, [address], [place], [address], Provider Name:Rufina Chavez, 05/24/2025 12:00:00 AM, [address], [place], [address], Provider Name:Rufina Chavez, 07/07/2025 11:15:00 AM, [address], [place], [address], Insurance Providers Payer Name Payer Address Payer Phone Subscriber Number Group Number Insured Name Patient Relationship to Insured Coverage Start Date Coverage End Date Joaquin MONGEO [address] [place] [address] [id number] Gabrielle Liz Self - patient is the insured Medical (General) History Medical History History ICD Code endometriosis Surgical History Surgery Date(Month/Year) laparoscope for endometriosis Hospitalization History Reason Date(Month/Year) labor and delivery x2
[2025-03-23 14:02] LABS: COC Drug Screen Collection Only
[2025-03-25 10:13] LABS: Hep A Ab, Total Positive (Negative); Measles Antibodies, IgG <13.5 AU/mL (Immune >16.4); Mumps Abs, IgG 21.2 AU/mL (Immune >10.9); Rubella Antibodies, IgG 1.56 index (Immune >0.99)
== END ==
LOC: LAB 13:55
CPT/HCPCS: 36415; 86480; 86706; 86708; 86735; 86762; 86765; 86787

== ENCOUNTER 2025-06-16 08:07 | Outpatient (CLI) | payer OTHER, SELFPAY ==
[2025-06-16 15:35] LABS: Influenza A, PCR Not Detected (NotDetected); Influenza B, PCR Not Detected (NotDetected)
[2025-06-16 16:57] LABS: Coronavirus 19, PCR Detected (NotDetected)
== END 2025-06-16 23:59 | disposition home or self-care (01) ==
LOC: LAB.DROPOF 06-17 09:34
PROVIDERS: PCP Nurse Practitioner; Visit Provider Student in an Organized Health Care Education/Training Program
DX: J06.9 Acute upper respiratory infection, unspecified (principal)
CPT/HCPCS: 87636